=== PATIENT | male | born 1975 | race African-American/Black ===

== ENCOUNTER 2024-01-20 16:04 | Emergency (ER) | payer MEDICARE, MEDICAID, SELFPAY ==
[2024-01-20 16:10] VITALS: BP 124/71; PULSE 85; TEMP 36.8; O2SAT 98; BMI 20.9
--- NOTE | 2024-01-20 16:18 | XR_ITS ---
The [address] [address] Patient Name: PERI ARAGON MRN: [id number] date: 1975 Sex: M Assigned Patient Location: ED.MAIN Current Patient Location: ED.MAIN Accession/Order Number: [id number] Exam Date: 01/20/2024 16:25 Report Date: 01/20/2024 16:57 At the request of: PARI KIM Procedure: XR knee RT 3V EXAM: XR knee RT 3V HISTORY: The patient is a 48-year-old male, right medial knee pain COMPARISON: None. FINDINGS: The right knee is radiographically negative with no evidence of fracture, dislocation, joint space narrowing, osteophytes, or other osseous or articular abnormalities. XR/XR knee RT 3V IMPRESSION: Negative. Electronically authenticated by: ALINA DAN Date: 01/20/2024 16:57
--- NOTE | 2024-01-20 16:20 | ED.LOWEXI1 ---
HPI HPI - Extremity Injury (Lower) General Chief Complaint: Extremity Injury, Lower Stated Complaint: Lower Extremity Pain Time Seen by Provider: 01/20/24 16:12 Source: patient Mode of arrival: walk-in Limitations: no limitations History of Present Illness HPI Narrative: Pt is a 48 yr male, since to the ER with concerns of right knee pain. Patient reports a history of knee pain on and off through the years playing basketball, denies any recent injury states he got up this morning sitting to standing and felt a pop in his right knee. Pain was sharp medial anterior. It typically has tenderness around his kneecaps which has been chronic. He recently moved to the area and only has gabapentin for pain. He reports seeing a local orthopedist for his shoulder. He denies any fevers or chills. Patient full weightbearing on arrival and notes pain occurs in his knee only with certain movements and changing positions. Injury: Right: knee Associated symptoms: Reports snap/pop sensation Related Data Home Medications ?Medication ?Instructions ?Recorded ?Confirmed gabapentin 300 mg capsule 300 mg PO TID 01/20/24 01/20/24 Previous Rx's ?Medication ?Instructions ?Recorded ibuprofen 600 mg tablet 600 mg PO TID PRN pain #30 tabs 01/20/24 Allergies Allergy/AdvReac Type Severity Reaction Status Date / Time acetaminophen AdvReac Mild Nausea Verified 01/20/24 16:10 methylprednisolone AdvReac Mild Vomiting Verified 01/20/24 16:10 Opioid HPI Opioid Management Most Recent Pain and Opioid Data: No Data to Display Review of Systems ROS Constitutional Denies: fever or chills Eyes Denies: change in vision Ears, nose, mouth, and throat Denies: throat pain, neck pain or throat swelling Cardiovascular Denies: chest pain Respiratory Denies: shortness of breath Gastrointestinal Denies: abdominal pain Neurological Denies: headache Psychiatric Denies: anxiety PFSH PFSH Social History Little interest or pleasure in doing things: not at all Feeling down, depressed, or hopeless: not at all Exam Narrative Exam Narrative: Vital signs reviewed and nurse's notes. The patient is not hypoxic. General: Alert, no acute distress, patient resting comfortably Skin: warm, intact, no pallor noted Head: Normocephalic, atraumatic Eye: Normal conjunctiva, no exudates Respiratory: No acute distress, lungs CTA Musculoskeletal: No evidence of deformity to the right knee. + Mable medial, neg Lateral. There is no effusion or swelling. There is no ecchymosis. remote scare anterior medial over patella. No erythema or warmth noted. DP and PT pulses are intact 2+. Normal sensation, normal capillary refill less than 2 seconds. There is no cyanosis or mottling noted. The patient has tenderness to peripatellar soft tissues with patella manipulation and anterior medial joint line of the right knee. The patient has no laxity with varus or valgus stressing. The patient has negative anterior drawer and Rojas testing. No pain with stressing MCL or LCL. The patient was able to flex and extend without pain. occasional sharp stab sensation medial. Patient was able to extend leg off the cart without difficulty. No tenderness noted to the 5th MT, midfoot, ankle or proximal fibular area. There is no pain with calcaneal squeeze, achilles tendon is intact and no defect is palpated. The patient has no pelvic instability. The patient has no shortening or rotation noted to the bilateral lower extremities. Neurological: alert and orient x4, normal sensory and motor observed. Psychiatric: Cooperative Constitutional Vital Signs, click to edit/add: Last Vital Signs Temp 98.2 F 01/20/24 16:10 Pulse 85 01/20/24 16:10 Resp 18 01/20/24 16:10 BP 124/71 01/20/24 16:10 Pulse Ox 98 01/20/24 16:10 O2 Del Method Room Air 01/20/24 16:10 Course Vital Signs Vital signs: Vital Signs Temperature 98.2 F 01/20/24 16:10 Pulse Rate 85 01/20/24 16:10 Respiratory Rate 01/20/24 16:10 Blood Pressure 124/71 01/20/24 16:10 Pulse Oximetry 98 01/20/24 16:10 Oxygen Delivery Method Room Air 01/20/24 16:10 Temperature 98.2 F 01/20/24 16:10 Pulse Rate 85 01/20/24 16:10 Respiratory Rate 18 01/20/24 16:10 Blood Pressure 124/71 01/20/24 16:10 Pulse Oximetry 98 01/20/24 16:10 Oxygen Delivery Method Room Air 01/20/24 16:10 MDM - Extremity Injury (Lower) MDM Narrative Medical decision making narrative: Discussed acute on chronic pain. Symptoms today sharp medial with going from sitting to standing and prior history with sports and recurrent pain with certain positions concerning for possible medial meniscus tear and malacia patella. Patient recommended to use ice, compression, avoid deep squatting rotation. No signs or symptoms of infection. Recommend follow-up to orthopedics for reevaluation after trial of anti-inflammatories. Patient requested IM Toradol over or Motrin here, he appears in no distress. Patient reports being established patient of Dr. Boston for follow-up.. X-ray discussed. pt reports doing physical therapy in the past without relief. The patient is to followup with primary care physician/ orthopedics in next 2-3 days or to return to the emergency department should any of the signs or symptoms worsen or new symptoms develop. Patient had questions answered. The patient agrees with the following Diagnosis and Treatment plan and the patient will be discharged home. recommend food with motrin use. Imaging Data right knee 3 view WB: Attestation: I personally reviewed and interpreted this imaging study as follows: My impression: No acute fracture, joint space preservation. No mass, suspect bony infarcts in the tibia xray results discussed with pt at bedside. Discharge Plan Discharge Chief Complaint: Extremity Injury, Lower Clinical Impression: Acute pain of right knee, Chondromalacia of patella, right Patient Disposition: Home, Self-Care Condition: Good Mode of Transportation: Private Vehicle Prescriptions / Home Meds: New ibuprofen 600 mg tablet 600 mg PO TID PRN (Reason: pain) Qty: 30 0RF No Action gabapentin 300 mg capsule 300 mg PO TID Print Language: Kosovan Instructions: Patellofemoral Pain Syndrome (ED), Patellofemoral Pain Syndrome Exercises (ED) Additional Instructions: Call ortho on sunday for follow up Referrals: Physician,Non-Staff, [Primary Care Provider] - 1 week Felipe Boston MD [Physician] - As soon as possible
[2024-01-20] MEDS: KETOROLAC TROMETHAMINE 60 MG/2 ML VIAL IM (16:31)
== END 2024-01-20 16:36 | disposition home or self-care (01) ==
LOC: ER 16:40
PROVIDERS: Emergency Provider Emergency Medicine
DX: M94.20 Chondromalacia, unspecified site (principal); M25.561 Pain in right knee
CPT/HCPCS: 73562; 96372; 99284; J1885

== ENCOUNTER 2024-01-24 12:32 | Emergency (ER) | payer MEDICARE, MEDICAID, SELFPAY ==
[2024-01-24 12:36] VITALS: BP 118/76; PULSE 84; TEMP 36.9; O2SAT 100; BMI 20.9
--- NOTE | 2024-01-24 13:06 | ED_ITS ---
HPI HPI - General Adult General Chief complaint: Extremity Injury, Lower Stated complaint: LOWER RIGHT EXTREMITY PAIN Time Seen by Provider: 01/24/24 12:58 Source: patient Mode of arrival: walk-in Limitations: no limitations History of Present Illness HPI narrative: 48-year-old male presents to the emergency department because of right knee pain. He states that he tweaked it several days ago and was here a few days ago. He had a negative x-ray at that time. He has not had follow-up. No new injury and the pain does not seem to radiate. He does not want to use crutches. Related Data Home Medications ?Medication ?Instructions ?Recorded ?Confirmed gabapentin 300 mg capsule 300 mg PO TID 01/20/24 01/20/24 Previous Rx's ?Medication ?Instructions ?Recorded ibuprofen 600 mg tablet 600 mg PO TID PRN pain #30 tabs 01/20/24 etodolac 400 mg tablet 400 mg PO Q8H PRN pain #20 tabs 01/24/24 Allergies Allergy/AdvReac Type Severity Reaction Status Date / Time Latex, Natural Rubber Allergy Severe Rash Verified 01/24/24 12:36 acetaminophen AdvReac Mild Nausea Verified 01/24/24 12:36 methylprednisolone AdvReac Mild Vomiting Verified 01/24/24 12:36 Opioid HPI Opioid Management Most Recent Opioid Data: Last Pain Scale 6 01/20/24 16:31 Last MAR Pain Assessment 01/20/24 16:31 Review of Systems ROS Narrative A ten point review of systems is negative except as noted above. PFSH PFSH Social History Little interest or pleasure in doing things: not at all Feeling down, depressed, or hopeless: not at all Exam Narrative Exam Narrative: Nurses note and vital signs reviewed and patient is not hypoxic. General: The patient appears well and in no apparent distress. Patient is resting comfortably on cart. Skin: Warm, dry, no pallor noted. There is no rash noted. Head: Normocephalic, atraumatic Eye: Normal conjunctiva, no drainage Ears, Nose, Mouth, and Throat: oral mucosa is moist. Nares patent. Cardiovascular: Regular Rate and Rhythm Respiratory: Patient is in no distress, no accessory muscle use, lungs are clear to auscultation, no wheezing, rales or rhonchi Back: non-tender GI: Soft and nontender Musculoskeletal: The right knee appears slightly swollen compared to the contralateral. It is not warm to touch or erythematous and has good range of motion Neurological: A&O, normal speech Psychiatric: Cooperative Constitutional Vital Signs, click to edit/add: Last Vital Signs Temp 98.4 F 01/24/24 12:36 Pulse 84 01/24/24 12:36 Resp 20 01/24/24 12:36 BP 118/76 01/24/24 12:36 Pulse Ox 100 01/24/24 12:36 O2 Del Method Room Air 01/24/24 12:36 Course Vital Signs Vital signs: Vital Signs Temperature 98.4 F 01/24/24 12:36 Pulse Rate 84 01/24/24 12:36 Respiratory Rate 01/24/24 12:36 Blood Pressure 118/76 01/24/24 12:36 Pulse Oximetry 100 01/24/24 12:36 Oxygen Delivery Method Room Air 01/24/24 12:36 Temperature 98.4 F 01/24/24 12:36 Pulse Rate 84 01/24/24 12:36 Respiratory Rate 01/24/24 12:36 Blood Pressure 118/76 01/24/24 12:36 Pulse Oximetry 100 01/24/24 12:36 Oxygen Delivery Method Room Air 01/24/24 12:36 Medical Decision Making MDM Narrative Medical decision making narrative: X-ray from the other day was read as negative. He was offered crutches again but does not want them. He is prescribed etodolac and orthopedic appointment is made for the patient to see Dr. Boston on January 27 at 12:30 PM. Treatment diagnosis and follow-up were discussed with the patient. Differential Diagnosis Differential Diagnosis: Knee sprain, knee strain Discharge Plan Discharge Chief Complaint: Extremity Injury, Lower Clinical Impression: Acute pain of right knee Patient Disposition: Home, Self-Care Time of Disposition Decision: 13:04 Condition: Good Mode of Transportation: Private Vehicle Prescriptions / Home Meds: New etodolac 400 mg tablet 400 mg PO Q8H PRN (Reason: pain) Qty: 20 0RF No Action gabapentin 300 mg capsule 300 mg PO TID ibuprofen 600 mg tablet 600 mg PO TID PRN (Reason: pain) Qty: 30 0RF Print Language: [place] Islander Instructions: Knee Pain (ED) Additional Instructions: Do not take ibuprofen with the etodolac Referrals: Physician,Non-Staff, [Primary Care Provider] - 1 week Felipe Boston MD [Physician] - 01/28/24 12:30 pm
== END 2024-01-24 13:15 | disposition home or self-care (01) ==
PROVIDERS: Emergency Provider Emergency Medicine
DX: M25.561 Pain in right knee (principal)
CPT/HCPCS: 99283

== ENCOUNTER 2024-02-07 10:27 | Outpatient (OUT) | payer MEDICARE, MEDICAID, SELFPAY ==
--- NOTE | 2024-02-07 | XR_ITS ---
The [address] [address] Patient Name: PERI ARAGON MRN: [id number] date: 1975 Sex: M Assigned Patient Location: MRI Current Patient Location: MRI Accession/Order Number: [id number] Exam Date: 02/07/2024 13:22 Report Date: 02/07/2024 14:02 At the request of: DILLON BARNETT Procedure: XR skull <4V EXAMINATION: XR skull <4V HISTORY: Pre MRI looking for Foreign body COMPARISON: No relevant comparison available. FINDINGS: ORBITS: Negative for a metallic foreign body. OTHER: Negative. XR/XR skull <4V IMPRESSION: 1. No metallic foreign body within the orbits or visible within the brain. Electronically authenticated by: ADARSH MULLINS Date: 02/07/2024 14:02
--- NOTE | 2024-02-07 | XR_ITS ---
The [address] [address] Patient Name: PERI ARAGON MRN: [id number] date: 1975 Sex: M Assigned Patient Location: MRI Current Patient Location: MRI Accession/Order Number: [id number] Exam Date: 02/07/2024 13:35 Report Date: 02/07/2024 14:04 At the request of: DILLON BARNETT Procedure: XR chest 1V EXAMINATION: XR abdomen 1V, XR chest 1V HISTORY: Pre MRI looking for Foreign body COMPARISON: No relevant comparison available. FINDINGS: LUNGS: No infiltrate, pneumothorax, or pleural effusion. MEDIASTINUM: No abnormal widening. BOWEL GAS PATTERN: Non-obstructed. FREE AIR: None. CALCIFICATIONS: None suspicious. BONES: No fracture or visible bone lesion. OTHER: Negative. XR/XR chest 1V IMPRESSION: 1. No metallic foreign body within the chest, abdomen, or pelvis. 2. No acute or suspicious findings. Electronically authenticated by: ADARSH MULLINS Date: 02/07/2024 14:04
--- NOTE | 2024-02-07 | XR_ITS ---
The [address] [address] Patient Name: PERI ARAGON MRN: [id number] date: 1975 Sex: M Assigned Patient Location: MRI Current Patient Location: MRI Accession/Order Number: [id number] Exam Date: 02/07/2024 13:22 Report Date: 02/07/2024 14:04 At the request of: DILLON BARNETT Procedure: XR abdomen 1V EXAMINATION: XR abdomen 1V, XR chest 1V HISTORY: Pre MRI looking for Foreign body COMPARISON: No relevant comparison available. FINDINGS: LUNGS: No infiltrate, pneumothorax, or pleural effusion. MEDIASTINUM: No abnormal widening. BOWEL GAS PATTERN: Non-obstructed. FREE AIR: None. CALCIFICATIONS: None suspicious. BONES: No fracture or visible bone lesion. OTHER: Negative. XR/XR abdomen 1V IMPRESSION: 1. No metallic foreign body within the chest, abdomen, or pelvis. 2. No acute or suspicious findings. Electronically authenticated by: ADARSH MULLINS Date: 02/07/2024 14:04
--- NOTE | 2024-02-07 | MR_ITS ---
The [address] [address] Patient Name: PERI ARAGON MRN: [id number] date: 1975 Sex: M Assigned Patient Location: MRI Current Patient Location: Accession/Order Number: [id number] Exam Date: 02/07/2024 13:51 Report Date: 02/08/2024 12:47 At the request of: DILLON BARNETT Procedure: MR knee RT wo con EXAMINATION: MR knee RT wo con HISTORY: Acute right knee pain COMPARISON: No relevant comparison available. TECHNIQUE: A complete multi-planar MRI was performed. FINDINGS: MEDIAL COMPARTMENT MEDIAL MENISCUS: No visible tear or significant degeneration. CARTILAGE: No visible defect. BONES: No marrow pathology, fracture, or significant arthropathy. MCL AND MEDIAL CAPSULE: Normal medial collateral ligament and medial capsule. LATERAL COMPARTMENT LATERAL MENISCUS: No visible tear or significant degeneration. CARTILAGE: No visible defect. BONES: No marrow pathology, fracture, or significant arthropathy. LCL/POSTEROLAT COMPLEX: Normal lateral collateral ligament, fascicles, lateral capsule and ligaments. ANTERIOR COMPARTMENT PATELLA: No marrow pathology, fracture, or significant arthropathy. CARTILAGE: No visible defect. TENDONS: Normal. EFFUSION: None. No synovitis or loose bodies. ACL: Normal appearing ligament. PCL: Normal appearing ligament. MENISCOFEMORAL: Normal meniscofemoral ligaments. OTHER: Increased T2 signal suggestive of edema within soft tissues anterior to the patella. MR/MR knee RT wo con IMPRESSION: 1. Suspect mild edema, possibly bruising, of subcutaneous soft tissue anterior to patella. No evidence of bursitis. 2. Otherwise unremarkable right knee. Electronically authenticated by: ADARSH MULLINS Date: 02/08/2024 12:47
--- OUTSIDE RECORDS SUMMARY | 2024-02-07 10:46 | XMS_ITS | CCD ---
Author Organization [facility] Care Team Providers Care Lead Systems Engineer Name Role Phone Unavailable Primary Care Provider Unavailjoseline Corrigan MD, Divehi Unavailable [facility] Primary Care Provider [phone] [facility] Gretta Hilario Emergency Provider DO Cliff Chapman Emergency Provider [facility] Primary Care Provider DO Jeevan Freire Attending Provider DO Anurag Butler Other Provider MD Sammi Contreras Attending Provider Meenu QUINTEROS, Divehi Unavailable [facility] Primary Care Provider MD Joana Luevano Jr Emergency Provider BETTY Ku Emergency Provider [facility] Primary Care Provider MD Joana Luevano Jr Emergency Provider BETTY Ku Emergency Provider DO Jeevan Freire Attending Provider DO Brayan Rolle Referring Provider CJ MANUEL Primary Care Physician [phone] CJ MANUEL Referring Unavailable CJ MANUEL Primary Care Unavailable Thanh Arizmendi Attending Unavailable Thanh Arizmenid Admitting Unavailable Danis Amin MD Unavailable [facility] Primary Care Provider MD Joana Luevano Jr Emergency Provider [facility] ([place], [place]) Care Unavaila ble Noam Kuothy Admitting Unavailable Bang Ku Attending Unavailable Joana Luevano Jr Admitting Unavailable Joana Luevano Jr Attending Unavailable [facility] ([place], [place] Care Unavaila ble [facility] [place] Care Unavaila ble Brayan Rolle Referring Unavailable Jeevan Freire Admitting Unavailable Jeevan Freire Attending Unavailable [facility] [place] Care Unavaila Joana Patel Jr Admitting Unavailable Joana Luevano Jr Attending Unavailable [facility] [place] Care Unavaila ble Noam Kuothy Admitting Unavailable Bang Ku Attending Unavailable [facility] [place] Care Unavaila ble Joana Luevano Jr Admitting Unavailable Joana Luevano Jr Attending Unavailable Allergies Allergy Classification Reported Allergen(s) Allergy Type Date of Onset Reaction(s) Facility (17 sources) Latex; Translations: [Latex] Drug Allergy 03-05-20 20 Rash, Unknown (qualifier value) [facility] (15 sources) methylPREDNISolone Drug Allergy 05-03-20 19 Other: See Comments [facility] Work Phone: (8 sources) predniSONE; Translations: [prednisone] Drug Allergy 01-04-20 21 Other: See Comments, Vomiting (disorder) [facility] Work Phone: (2 sources) Metoclopramide; Translations: [metoclopramide] Drug Allergy Vomiting (disorder) [facility] (1 source) Latex Drug allergy (disorder) 01-13-20 24 [facility] (1 source) methylPREDNISolone Drug Allergy 01-13-20 [facility] Medications Current Medications Medication Drug Class(es) Dates Sig (Normalized) Sig (Original) acetaminophen 32 mg/ml oral solution (6 sources) Start: 07-15-2021 acetaminophen (TYLENOL) 650 mg/20.3 mL soln Take 31.23 mL by mouth every 6 hours. Do not exceed 5 doses in 24 hours. 0 07/15/2021 Active Comment on above: Take 31.23 mL by ritesh th every 6 hours. Do not exceed 5 doses in 24 hours. acetaminophen 325 mg / oxyCODONE hydrochloride 5 mg oral tablet (1 source) Opioid Agonist Start: 01-13-2024 take 1 tablet by mouth every six hours Oxycodone-Acetamino phen (Percocet) 5-325 mg tablet Active 1 - 2 TAB PO Every 6 hours 15 January 13, 2024 Start: 01-13-2024 take 1 tablet by ritesh th every six hours Oxycodone-Acetaminophen (Percocet) 5-325 mg tablet Active 1 - 2 TAB PO Every 6 hours 15 January 13, 2024 azelastine hydrochloride 0.206 mg/actuat metered dose nasal spray (10 sources) Histamine-1 Receptor Antagonist Start: 05-17-2023 azelastine nasal 0.15% spray Refill(s) 0, 1-2 sprays each nostril BID Start Date: 05/17/23 Status: Ordered Start: 12-25-2020 End: 02-24-2023 Azelastine Discontinued INTR ANASAL December 25, 2020 12:00am February 24, 2023 9:10am dicyclomine hydrochloride 2 mg/ml oral solution (6 sources) Anticholinergic Start: 02-09-2021 take 10 mg by mouth once daily dicyclomine (BENTYL) 10 mg/5 mL oral liquid Take 10 mg by mouth once daily. 0 02/09/2021 Active Comment on above: Take 10 mg by mouth once daily. fluticasone (10 sources) Corticosteroid Start: 05-17-2023 take 50 ug by inhalation once daily fluticasone 50 mcg, Inhalation, Daily, Refills(s) 0 Start Date: 05/17/23 Status: Ordered Start: 12-25-2020 End: 02-24-2023 Fluticasone Propionate Disco ntinued INTRANASAL December 25, 2020 12:00am February 24, 2023 9:10am gabapentin 300 mg oral capsule (11 sources) Anti-epileptic Agent Start: 05-17-2023 End: 10-12-2023 take 1 capsule by mouth three times daily Neurontin 300 mg Cap 300 mg = 1 cap(s), Oral, TID, X 30 day(s), # 90 cap(s), Refills(s) 3, Pharmacy: [facility]/pharmacy #[id number], 175, cm, 06/14/23 12:41:00 EST, Height/Length Dosing, 81.4, kg, 06/14/23 12:41:00 EST, Weight Dosing Start Date: 06/14/23 Stop Date: 10/12/23 Status: Ordered Start: 05-03-2019 End: 02-24-2023 take 300 mg by mouth three times daily Gabapentin Discontinued 300 MG PO Three times daily May 03, 2019 1:00am February 24, 2023 9:10am ibuprofen 600 mg oral tablet (1 source) Nonsteroidal Anti-inflammatory Drug Start: 01-13-2024 take 600 mg by mouth every eight hours Ibuprofen Active 600 MG PO Q8H January 13, 2024 12:00am lidocaine 0.04 mg/mg medicated patch (6 sources) Antiarrhythmic, Amide Local Anesthetic Start: 07-15-2021 apply 1 dose transdermal route once daily lidocaine (SALONPAS) 4 % patch Apply 1 Patch as directed once daily. 0 07/15/2021 Active Comment on above: Apply 1 Patch as directed once daily. montelukast 10 mg oral tablet (10 sources) Leukotriene Receptor Antagonist Start: 05-17-2023 take 1 tablet by mouth once daily montelukast 10 mg Tab 10 mg = 1 tab(s), Oral, Daily, Refills(s) 0 Start Date: 05/17/23 Status: Ordered Start: 05-03-2019 End: 02-24-2023 take 1 tablet by mouth once daily in the evening Montelukast (Singulair) 10 mg Tablet Discontinued 10 MG PO Every evening May 03, 2019 1:00am February 24, 2023 9:10am Neoga (No Known Home Meds) (3 sources) Start: 03-20-2023 Neoga (No Kn own Home Meds) Active March 20, 2023 12:00am Start: 02-24-2023 Neoga (No own Home Meds) Active February 24, 2023 12:00am omeprazole 40 mg oral tablet (10 sources) Proton Pump Inhibitor Start: 05-17-2023 take 40 mg by mouth once daily omeprazole 40 mg, Oral, Daily, Refills(s) 0 Start Date: 05/17/23 Status: Ordered Start: 12-25-2020 End: 02-24-2023 Omeprazole Discontinued MG A ugust 2020 12:00am February 24, 2023 9:10am ondansetron 4 mg oral tablet (1 source) Serotonin-3 Receptor Antagonist Start: 05-17-2023 take 1 tablet by mouth once daily as needed for nausea ondansetron See Instructions, PRN as needed for nausea/vomiting, 4 mg Oral Daily allow tablet to dissolve on tongue, Refills(s) 0 Start Date: 05/17/23 Status: Ordered pantoprazole 40 mg delayed release oral tablet (12 sources) Proton Pump Inhibitor Start: 07-15-2021 End: 09-13-2021 take 1 tablet by mouth twice daily pantoprazole DR (PROTONIX) 40 mg tablet Take 1 tablet by mouth twice daily. 60 tablet 1 07/15/2021 Active Comment on above: Take 1 tablet by ritesh th twice daily. Take 1 tablet by ritesh th twice daily before meals at 6 am and 4 pm. perflutren lipid microspheres 1.3 mL in NaCl (PF) 0.9% 10 mL injection (DEFINITY) (2 sources) Start: 06-07-2021 End: 09-06-2022 perflutren lipid microspheres 1.3 mL in NaCl (PF) 0.9% 10 mL injection (DEFINITY) polyethylene glycol 3350 94999 mg powder for oral solution (6 sources) Osmotic Laxative Start: 07-15-2021 polyethylene glycol 3350 (MIRALAX, GLYCOLAX) 17 gram packet Take 1 Packet by mouth once daily. Dissolve dose in 4 - 8 ounces of liquid and take as directed. 0 07/15/2021 Active Comment on above: Take 1 Packet by ritesh once daily. Dissolve dose in 4 - 8 ounces of liquid and take as directed. propranolol hydrochloride 20 mg oral tablet (1 source) beta-Adrenergic Beau Start: 05-17-2023 take 1 tablet by mouth twice daily propranolol 20 mg Tab 20 mg = 1 tab(s), Oral, BID, Refills(s) 0 Start Date: 05/17/23 Status: Ordered 125 ml sodium chloride 9 mg/ml prefilled syringe (2 sources) Start: 06-07-2021 End: 09-06-2022 sodium chloride 0.9 % (flush) 10 mL (BD POSIFLUSH) tiZANidine 4 mg oral capsule (6 sources) Central alpha-2 Adrenergic Agonist take 1 capsule by mouth every eight hours as needed tiZANidine HCl 4 mg capsule Take 4 mg by mouth three times daily as needed. 0 Active Comment on above: Take 4 mg by mouth t hree times daily as needed. Ventolin HFA 90 mcg/inh Aerosol-Adpt (1 source) Start: 05-17-2023 take 1 puff(s) by inhalation every four hours Ventolin HFA 90 mcg/inh Aerosol-Adpt 1 puff(s), Inhalation, q4hr Shortness of breath or wheezing, Refill(s) 0 Start Date: 05/17/23 Status: Ordered Completed/Discontinued Medications Medication Drug Class(es) Dates Sig (Normalized) Sig (Original) amoxicillin 500 mg oral tablet (18 sources) Penicillin-class Antibacterial Start: 04-16-2022 End: 02-24-2023 take 500 mg by mouth twice daily Amoxicillin Discontinued 500 MG PO Twice daily 02 03April 16, 2022 1:00am February 24, 2023 9:09am Start: 05-03-2019 End: 03-05-2020 take 500 mg by mouth three times daily Amoxicillin Discontinued 500 MG PO Three times daily 30 May 03, 2019 1:00am March 05, 2020 12:36pm benzonatate 100 mg oral capsule (9 sources) Non-narcotic Antitussive Start: 05-03-2019 End: 03-05-2020 take 1 capsule by mouth three times daily Benzonatate (Tessalon Perles) 100 mg capsule Discontinued 100 MG PO Three times daily May 03, 2019 1:00am March 05, 2020 12:36pm busPIRone hydrochloride 10 mg oral tablet (9 sources) Start: 05-03-2019 End: 12-25-2020 take 10 mg by mouth once daily Buspirone Discontinued 10 MG PO Daily May 03, 2019 1:00am December 25, 2020 4:11pm DULoxetine 30 mg delayed release oral capsule (1 source) Serotonin and Norepinephrine Reuptake Inhibitor Start: 06-14-2023 End: 09-12-2023 take 2 tablets by mouth once daily at mealtime duloxetine 30 mg oral delayed release capsule 60 mg = 2 cap(s), Oral, Daily, take 1 tablet in am with food for 1 week and then take 2 tablets in am with food thereafter, X 30 day(s), # 60 cap(s), Refills(s) 2, Pharmacy: [facility]/pharmacy #[id number], 175, cm, 06/14/23 12:41:00 EST, Height/Length Dosing, 81.4, kg, 06/14/23 12:41:00 EST, Weight Dosing Start Date: 06/14/23 Stop Date: 09/12/23 Status: Ordered meloxicam 15 mg oral tablet (9 sources) Nonsteroidal Anti-inflammatory Drug Start: 05-03-2019 End: 02-24-2023 take 15 mg by mouth once daily Meloxicam Discontinued 15 MG PO Daily May 03, 2019 1:00am February 24, 2023 9:10am Problems Active Problems Problem Classification Problem Date Documented Date Episodic/Chronic Abdominal pain (16 sources) Abdominal pain; Translations: [Unspecified abdominal pain] Onset: 02-21-2023 10-20-2021 Episodic Disorders of teeth and jaw (9 sources) Dental caries; Translations: [Dental caries, unspecified] 05-03-2019 Episodic Esophageal disorders (6 sources) Gastroesophageal reflux disease without esophagitis; Translations: [Gastro-esophageal reflux disease without esophagitis] 07-15-2021 Chronic Fluid and electrolyte disorders (9 sources) Hypokalemia; Translations: [Hypokalemia] 02-26-2020 Episodic Open wounds of extremities (9 sources) Laceration of finger; Translations: [Laceration without foreign body of unspecified finger without damage to nail, initial encounter] 08-09-2020 Episodic Other eye disorders (7 sources) Disorder of cornea; Translations: [Other specified disorders of cornea, left eye] 12-25-2020 Episodic Other eye disorders (2 sources) Disorder of cornea of left eye; Translations: [Other specified disorders of cornea, left eye] 12-25-2020 Episodic Other injuries and conditions due to external causes (9 sources) Foreign body in ear; Translations: [Foreign body in ear, unspecified ear, initial encounter] 04-16-2022 Episodic Other injuries and conditions due to external causes (4 sources) Cold exposure; Translations: [Effect of reduced temperature, unspecified, initial encounter] 02-24-2023 Episodic Other upper respiratory infections (12 sources) Upper respiratory infection; Translations: [Acute upper respiratory infection, unspecified] 05-03-2019 Episodic Otitis media and related conditions (18 sources) Acute right otitis media; Translations: [Otitis media, unspecified, right ear] 05-03-2019 Episodic Sprains and strains (1 source) Strain of tendon of medial thigh muscle; Translations: [Strain of adductor muscle, fascia and tendon of unspecified thigh, initial encounter] 01-13-2024 Episodic Substance-related disorders (7 sources) Nicotine dependence; Translations: [Nicotine dependence, unspecified, uncomplicated] Onset: 07-14-2021 07-15-2021 Chronic Comment on above: Added secondary to d ocumentation in Social History. Thyroid disorders (1 source) Nontoxic single thyroid nodule; Translations: [Nontoxic single thyroid nodule] Onset: 04-27-2023 Chronic Unclassified (1 source) Laceration without foreign body of right middle finger without damage to nail, initial encounter; Translations: [Laceration without foreign body of right middle finger without damage to nail, initial encounter] Onset: 04-02-2023 Unclassified (1 source) Cough, unspecified; Translations: [Cough, unspecified] Onset: 03-20-2023 Unclassified (1 source) Effect of reduced temperature, unspecified, initial encounter; Translations: [Effect of reduced temperature, unspecified, initial encounter] Onset: 02-24-2023 Past or Other Problems Problem Classification Problem Date Documented Date Episodic/Chronic Administrative/social admission (6 sources) Discharge status; Translations: [Encounter for administrative examinations, unspecified] Onset: 07-14-2021 07-15-2021 Episodic Esophageal disorders (8 sources) Achalasia of esophagus; Translations: [Achalasia of cardia] Onset: 07-13-2021 Episodic Other circulatory disease (1 source) Other specified symptoms and signs involving the circulatory and respiratory systems; Translations: [Other specified symptoms and signs involving the circulatory and respiratory systems] Onset: 03-20-2023 Episodic Other nervous system disorders (6 sources) Postoperative pain ; Translations: [Other acute postprocedural pain] Onset: 07-14-2021 07-15-2021 Episodic Results Test Name Value Interpretation Reference Range Facility [facility] PERI YOU ([id number]) 1975 M Date Time Provider Department 09/24/23 MARIANA ARIZMENDI GAPRA3 During your visit today, we recorded the following information about you: Mariana Arizmendi RN 09/24/2023 4:26 PM Signed Attempted to reach the patient at the contact number that they provided [phone] (home) . 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 Failure to have a responsible adult accompany the patient to their procedure appointment prevents the use of sedation or anesthesia for their procedure; and can result in cancellation of the procedure NPO instructions were reviewed. Clear liquids the day before the procedure, stop all liquids 4 hours before the procedure Instructions to contact their primary care provider regarding their medications and which medications to stop in preparation for their procedure Instructions to completely read and follow the written instructions that they recieved regarding their procedure. Number to call with questions or concerns [phone] Number to call to cancel their procedure [phone] Mariana Arizmendi RN Allergies As of Date: 09/24/2023 Noted Allergy Reaction LATEX 03/05/2020 2 - Rash METHYLPREDNISOLONE 05/03/2019 14 - Other: See Comments Comments: Emesis and blacking out PREDNISONE 01/03/2021 14 - Other: See Comments Comments: Emesis and blacking out Date Reviewed: 07/15/2021 Reviewed by: Raquel Brandon, BETH - Fully Assessed Prescriptions as of 09/24/2023 - lidocaine (SALONPAS) 4 % patch Apply 1 Patch as directed once daily. - pantoprazole DR (PROTONIX) 40 mg tablet Take 1 tablet by mouth twice daily. - acetaminophen (TYLENOL) 650 mg/20.3 mL soln Take 31.23 mL by mouth every 6 hours. Do not exceed 5 doses in 24 hours. - pantoprazole DR (PROTONIX) 40 mg tablet Take 1 tablet by mouth twice daily before meals at 6 am and 4 pm. - polyethylene glycol 3350 (MIRALAX, GLYCOLAX) 17 gram packet Take 1 Packet by mouth once daily. Dissolve dose in 4 - 8 ounces of liquid and take as directed. - dicyclomine (BENTYL) 10 mg/5 mL oral liquid Take 10 mg by mouth once daily. - tiZANidine HCl 4 mg capsule Take 4 mg by mouth three times daily as needed. Problem List As Of Date 09/24/2023 Noted Resolved Achalasia [K22.0] 07/13/2021 Nicotine use disorder, F17.2 [F17.200] 07/14/2021 Gastroesophageal reflux disease without esophag* Postoperative pain [G89.18] 07/14/2021 Discharge planning issues [Z75.8] 07/14/2021 Encounter Status:Closed by MARIANA ARIZMENDI on 09/24/23 [facility] [place] 09-06-2023 CNPN Telephone (THORMN) PERI YOU ([id number]) 1975 M Date Time Provider Department 09/06/23 KIRSTIE SHETTY During your visit today, we recorded the following information about you: Itzel Garces 09/06/2023 1:10 PM Signed Received outside notes from the office of Danis Amin MD. Scanned documents in [employer]. Itzel Cheung [employer] Allergies As of Date: 09/06/2023 Noted Allergy Reaction LATEX 03/05/2020 2 - Rash METHYLPREDNISOLONE 05/03/2019 14 - Other: See Comments Comments: Emesis and blacking out PREDNISONE 01/03/2021 14 - Other: See Comments Comments: Emesis and blacking out Date Reviewed: 07/15/2021 Reviewed by: Raquel Brandon, BETH - Fully Assessed Reason for Visit: Received Outside Medical Records [[id number]] Prescriptions as of 09/06/2023 - lidocaine (SALONPAS) 4 % patch Apply 1 Patch as directed once daily. - pantoprazole DR (PROTONIX) 40 mg tablet Take 1 tablet by mouth twice daily. - acetaminophen (TYLENOL) 650 mg/20.3 mL soln Take 31.23 mL by mouth every 6 hours. Do not exceed 5 doses in 24 hours. - pantoprazole DR (PROTONIX) 40 mg tablet Take 1 tablet by mouth twice daily before meals at 6 am and 4 pm. - polyethylene glycol 3350 (MIRALAX, GLYCOLAX) 17 gram packet Take 1 Packet by mouth once daily. Dissolve dose in 4 - 8 ounces of liquid and take as directed. - dicyclomine (BENTYL) 10 mg/5 mL oral liquid Take 10 mg by mouth once daily. - tiZANidine HCl 4 mg capsule Take 4 mg by mouth three times daily as needed. Problem List As Of Date 09/06/2023 Noted Resolved Achalasia [K22.0] 07/13/2021 Nicotine use disorder, F17.2 [F17.200] 07/14/2021 Gastroesophageal reflux disease without esophag* Postoperative pain [G89.18] 07/14/2021 Discharge planning issues [Z75.8] 07/14/2021 Encounter Status:Closed by SYMONE GORE on 09/06/23 [facility] 07-25-2023 CNPN Telephone (ADEN) PEIR YOU ([id number]) 1975 M Date Time Provider Department 07/25/23 KIRSTIE SHETTY During your visit today, we recorded the following information about you: Symone Gore RN 07/25/2023 2:02 PM Signed PRINCIPAL DX: Achalasia SURGICAL DX: 07/13/2021 Status Post Robot assisted Heller myotomy with Filiberto fundoplication Last clinic note on 08/08/[address] Shetty A: Ptr s/p robotic heller/Filiberto. Doing well. No complaints. Tolerating a soft diet. CC: dysphagia and requesting pain medication refills Dysphagia, (0, absent; 1, occasional; 2, daily; and 3, with each meal) - 3 Regurgitation (0, absent; 1, occasional; 2, daily; and 3, with each meal) - 3 Chest pain retrosternal (0, absent; 1, occasional; 2, daily; and 3, with each meal) - 3 Weight loss (0, no weight loss; 1, <5 kg; 2, 5-10 kg; and 3, >10 kg) - 1 TOTAL ECKARDT SCORE (sum of above four, maximum score, 12) - 10 Recommendations Demo and insurance updated in system Need records from [facility] xrays done MayJun 2023 Instructed to call the physician that has been prescribing his oxy and other medications since we have not seen him in 2 years. ( states he needs referral for pain management) Plan for TBE , follow up with [facility] [employer]ARD [facility]ER EGD by gastro swallowing center. [employer]ER follow up after testing completed Symone Gore RN, BSN, [facility] Thoracic Nurse Practice Mgr Symone Gore RN 09/06/2023 4:00 PM Signed outside EGD /pathology , PFTs and GI note rec'd and scanned in documents Symone Gore RN 09/06/2023 4:00 PM Signed Allergies As of Date: 07/25/2023 Noted Allergy Reaction LATEX 03/05/2020 2 - Rash METHYLPREDNISOLONE 05/03/2019 14 - Other: See Comments Comments: Emesis and blacking out PREDNISONE 01/03/2021 14 - Other: See Comments Comments: Emesis and blacking out Date Reviewed: 07/15/2021 Reviewed by: Raquel Brandon RN - Fully Assessed Reason for Visit: returned call [Other] Primary Visit Diagnosis:Achalasia and cardiospasm [K22.0] Order(s):XR ESOPHAGRAM [2490391] Order #: [id number] FUTURE EGD DIAGNOSTIC [GI9] Order #: [id number] FUTURE Prescriptions as of 09/06/2023 - lidocaine (SALONPAS) 4 % patch Apply 1 Patch as directed once daily. - pantoprazole DR (PROTONIX) 40 mg tablet Take 1 tablet by mouth twice daily. - acetaminophen (TYLENOL) 650 mg/20.3 mL soln Take 31.23 mL by mouth every 6 hours. Do not exceed 5 doses in 24 hours. - pantoprazole DR (PROTONIX) 40 mg tablet Take 1 tablet by mouth twice daily before meals at 6 am and 4 pm. - polyethylene glycol 3350 (MIRALAX, GLYCOLAX) 17 gram packet Take 1 Packet by mouth once daily. Dissolve dose in 4 - 8 ounces of liquid and take as directed. - dicyclomine (BENTYL) 10 mg/5 mL oral liquid Take 10 mg by mouth once daily. - tiZANidine HCl 4 mg capsule Take 4 mg by mouth three times daily as needed. Problem List As Of Date 07/25/2023 Noted Resolved Achalasia [K22.0] 07/13/2021 Nicotine use disorder, F17.2 [F17.200] 07/14/2021 Gastroesophageal reflux disease without esophag* Postoperative pain [G89.18] 07/14/2021 Discharge planning issues [Z75.8] 07/14/2021 Encounter Status:Closed by SYMONE GORE on 07/27/23 [facility] Consent for Treatmenton Consent for Treatment [id number] [facility] Consultation Noteon 06-14-19 Consultation Note Patient is presentin g with complaints of diffuse musculoskeletal pain as well as gastrointestinal pain as he has had an extensive history of gastrointestinal issues as well as dysphagia odynophagia achalasia and has had Heller myotomy and other workup in the past. He rates his pain as a 7-8 out of 10. He has tried many things for his multiple areas of pain and has diffuse musculoskeletal pain as well. He is very interested in receiving opioid medication and we discussed his OARRS history with him and that he has not received this medication in several months. He was very intent on receiving a new prescription of opioid medication and wanted to discuss where he could start as far as dosing and was very well versed in various opioid medications available and continue to inquire about these medications specifically. When discussing out of medications such as gabapentin noise he was, he was reasonable to try this,, he says this has been somewhat helpful for him as well. He states that he has tried a significant number of medications in the past and opioids with the only thing that had been effective for him. We discussed that due to the nature of his pain as well as concerns for affecting his gastrointestinal transit I would be concerned about this medication as well as his specific request of this medication. We discussed that there are other interventions available but he is not interested in injections or interventional based procedures for his pain. He is very interested in medication therapy. KELLY Score: 74% PHQ-2: 3 Patient denies any symptoms of progressively worsening upper/lower extremity weakness, progressively worsening gait abnormality, new onset bowel/bladder incontinence/ urinary retention, or saddle anesthesia. No new or worsening symptoms of fever, chills, night sweats. 14 Point Review of systems negative unless otherwise noted. General: No acute distress. Patient appears well-nourished. HEENT: Head is normocephalic and external ears are normal in appearance. Cardiovascular: No signs of poor perfusion and no peripheral edema Pulmonary: Nonlabored breathing, symmetric chest movement. GI: Abdomen nondistended Integumentary: No lesions Musculoskeletal: Multiple tender spots throughout body. Neurologic: Alert, oriented x3. 5/5 strength grossly in the bilateral upper extremities. 5/5 strength grossly in the bilateral lower extremities. Special Testing: Negative Harsha sign bilaterally. History, physical examination, and personal review of pertinent imaging results indicate a diagnosis of: -Myofascial pain -Dysphagia Plan: -We do lengthy discussion about the appropriateness of opioids we discussed that this would not be the best place to start with his medications and discussed that since he has been off this medication based on his prescription history he should be well out of window of any concerns for withdrawal at this time and he may even benefit from staying away from opioid therapy as there is a risk of opioid-induced hyperalgesia when taking this medication -Will continue him on gabapentin 300 mg 3 times daily -We prescribed duloxetine we will start at 30 mg for 1 week and increase to 60 mg thereafter -Will follow-up in 6 months or sooner if any issues arise Patient was counseled on the above diagnosis and treatment, all questions were answered and patient agrees to adhere to the plan above. Risk and benefits of appropriate procedures and medications were reviewed as well with patient, who voiced understanding and agreeance. Patient was counseled on appropriate use of opioids if prescribed or renewed today and naloxone was offered to patient if opioids were prescribed or maintained at this visit. Patient was counseled on smoking cessation and/or continuing to abstain from nicotine/tobacco products as appropriate based on history; as smoking/nicotine can contribute to increased pain overall and decreased wound healing. Patient counseled on maintaining a healthy BMI as part of the total treatment of their pain and to reduce stress/strain on joints. Patient invited to return or call with any questions or concerns that arise. [facility] Comment on above: Result Comment: Elec tronically Signed By: Faizan MCNALLY, Thanh Juárezbr\Date and Time Signed: 06/14/23 13:11 EST HIPAA Forms Officeon 024 HIPAA Forms Office [id number]#[address] [facility] Legal Correspondence Officeo n 06-14-2023 Legal Correspondence Office [id number]#[address] [facility] Legal Correspondence Office [id number]#[address] [facility] Office/Clinic Note-Physician on 06-14-2023 Office/Clinic Note-Physician [id number]#[address] [facility] Patient Correspondenceon Patient Correspondence [id number]#[address] [facility] Patient Correspondence [id number]#[address] [facility] Patient Correspondence [id number]#[address] [facility] Patient Correspondence [id number]#[address] [facility] Patient Correspondence [id number]#[address] [facility] Patient History Officeon Patient History Office [id number]#1 .00TIFF Normal [facility] Patient History Office [id number]#1 .00TIFF Normal [facility] Radiology Outside Office Motor Runner yon 06-14-2023 Radiology Outside Office Copy [id number]#1 .00TIFF Normal [facility] Outside Records Officeon Outside Records Office [id number]#1. 00TIFF Normal [facility] Referrals Officeon 3 Referrals Office [id number]#1. 00TIFF Normal [facility] Thyroid Stim Hormone w/Rflxo n 04-27-2023 Thyroid Stim Hormone w/Rflx 0.50 u[iU]/mL Normal 0.45-5.33 [facility] Comment on above: Order Comment: Reaso n for Exam Thyroid nodule Result Comment: PERF ORMED BY: [place] [address] PATHOLOGIST TEAM LEADER SURGERY EMRE FIELD M.D. Performed By: #### T SH3 wRFLX #### [address] Thyrotropin [Units/volume] i n Serum or PlasmaOrdered By: Brayan Rolle on 04-27-2023 TSH Qn 0.50 m[IU]/L 0.45-5.33 [facility] US thyroidon 04-27-2023 US thyroid [facility] [place] [place] [address] Ultrasound Report Signed Patient: Peri You MR#: [id number] 443 : 1975 Acct:[id number] Age/Sex: 47 / M ADM Date: 04/27/23 Loc: Room: Type: [facility] Attending Dr: Jeevan Freire DO Ordering Provider: Brayan Rolle DO, RES Date of Service: 04/27/23 US/US thyroid: Thyroid nodule Copies to: Brayan Rolle DO, RES Jeevan Freire DO Thyroid Ultrasound HISTORY: Nontoxic single thyroid nodule COMPARISON: None The RIGHT lobe measures 5.3 x 2.8 x 1.9cm. LEFT lobe measures 5.5 x 3.1 x 1.9 cm. Isthmus has an AP dimension of 0.4cm. Right superior solid and cystic nodule measures 1.0 x 0.7 x 0.8 cm.. No microcalcifications identified. Symmetric blood flow of the thyroid gland identified. US/US thyroid IMPRESSION: 1 cm solid and cystic right thyroid nodule. Impression dictated by: Godwin Jackson M.D.04/27/2023 5:18 PM Dictation Location: [place] [address] Tech: Elsa Echols Transcribed By: HALEY 04/27/231717 Dictated By: Godwin Jackson DO 04/27/231705 Signed By: 04/27/231717 Normal [facility] COVID CepheidOrdered By: Myles Luevano on 03-20-2023 SARS-CoV-2 (COVID-19) Ab IA Ql Negative Negative [facility] Comment on above: This is a duplicate Cepheid Xpert Xpress CoV-2/Flu/RSV Plus RNA by RT-PCR result to be used for statistical tracking purpose only. SARS-CoV-2 (COVID-19) RNA MILADYS+probe Ql (Unsp spec) [facility] COVID-19 / Flu A/B / RSV PCR on 03-20-2023 SARS-CoV-2 (COVID-19) RNA MILADYS+probe Ql (Unsp spec) COVID-19 Cepheid Result Negative for SARS-CoV-2 RNA by RT-PCR Flu A Cepheid Result Negative for Flu A RNA by RT-PCR Flu B Cepheid Result Negative for Flu B RNA by RT-PCR RSV Cepheid Result Negative for RSV RNA by RT-PCR COVID19 Blank Space Reference: Negative COVID19 Blank Space Cepheid Disclaimer The Cepheid Xpert Xpress CoV-2/Flu/RSV Plus has Cepheid Disclaimer not been FDA cleared or approved; this test has Cepheid Disclaimer been authorized by FDA under an EUA for use by Cepheid Disclaimer authorized laboratories; this test has been Cepheid Disclaimer authorized only for the simultaneous qualitative Cepheid Disclaimer detection and differentiation of nucleic acids from Cepheid Disclaimer SARS-CoV-2, influenza A, influenza B, and Cepheid Disclaimer respiratory syncytial virus (RSV), and not for any Cepheid Disclaimer other viruses or pathogens; and this test is only Cepheid Disclaimer authorized for the duration of the declaration that Cepheid Disclaimer circumstances exist justifying the authorization of Cepheid Disclaimer emergency use of in vitro diagnostic tests for Cepheid Disclaimer detection and/or diagnosis of COVID-19 under Cepheid Disclaimer Section 564(b)(1) of the Act, 21 U.S.C. 360bbb- Cepheid Disclaimer 3(b)(1), unless the authorization is terminated or Cepheid Disclaimer revoked sooner. PERFORMED BY: [place] [address] PATHOLOGIST TEAM LEADER SURGERY EMRE FIELD M.D. Normal [facility] Comment on above: Performed By: #### C OVID19 FLU RSV, CEPHEID NEG #### [place] [id number] [facility] Cepheid COVID PCR Negativeon 03-20-2023 SARS-CoV-2 (COVID-19) RNA MILADYS+probe Ql (Unsp spec) Negative Normal Negative [facility] Comment on above: Result Comment: This is a duplicate Cepheid Xpert Xpress CoV-2/Flu/RSV Plus RNA by RT-PCR result to be used for statistical tracking purpose only. PERFORMED BY: [place] [address] PATHOLOGIST TEAM LEADER SURGERY EMRE FIELD M.D. Performed By: #### C OVID19 FLU RSV, CEPHEID NEG #### [facility] [address] XR chest 2V*on 03-20-2023 XR chest 2V* [facility] [address] [place] [address] [place] [id number] XRay Report Signed Patient: Peri You MR#: [id number] 443 : 1975 Acct:[id number] Age/Sex: 47 / M ADM Date: 03/20/23 Loc: ER Room: Type: [facility] ER Attending Dr: Copies to: Joana Luevano Jr, MD Ordering Provider: Joana Luevano Jr, MD Date of Service: 03/20/23 XR/XR chest 2V*: cough 2 weeks, congestion Plain film chest 2 view HISTORY: Chest pain and shortness of breath COMPARISON: 09/16/2020 FINDINGS: SUPPORT DEVICES: None POSTSURGICAL CHANGES: None HEART: Within normal limits PULMONARY OZIEL: Within normal limits MEDIASTINUM: Unremarkable LUNGS AND PLEURA: No acute lung process, pleural effusion or pneumothorax identified. BONY STRUCTURES: Intact ADDITIONAL FINDINGS None XR/XR chest 2V* IMPRESSION: No acute process. Impression dictated by: Godwin Jackson M.D.03/20/2023 8:14 AM Dictation Location: [place] [address] Transcribed By: [facility] 03/20/23813 Dictated By: Godwin Jackson DO 03/20/23813 Signed By: 03/20/23813 Normal [facility] Capillary blood glucose magdaleno urement by glucometer (mass/volume)Ordered By: Bang Ku on 02-24-2023 Glucose [Mass/Vol] 96 mg/dL Normal [facility] Comment on above: Random Glucose Refer ence Range is dependent on time and content of last meal. Glucose of more than 200 mg/dL in a nonstressed, ambulatory subject supports the diagnosis of Diabetes Mellitus. Result Comment: [place] [facility] Glucose Reference Range is dependent on time and content of last meal. Glucose of more than 200 mg/dL in a nonstressed, ambulatory subject supports the diagnosis of Diabetes Mellitus. PERFORMED BY: [place] [address] PATHOLOGIST TEAM LEADER SURGERY EMRE FIELD M.D. Performed By: #### G DON #### Point of Care testing , Alanine aminotransferase [En zymatic activity/volume] in Serum or PlasmaOrdered By: Joana Luevano on 02-21-2023 ALT [Catalytic activity/Vol] 10 U/L Normal 7-52 [facility] Comment on above: Performed By: #### H S TROP, CMP, LIPASE, CBC ####[place] [address] [address] Albumin [Mass/volume] in Ser um or Plasma by Bromocresol green (BCG) dye binding methoOrdered By: Joana Luevano on 02-21-2023 Albumin BCG dye [Mass/Vol] 4.3 g/dL 3.5-5.7 [facility] Alkaline phosphatase [Enzyma tic activity/volume] in Serum or PlasmaOrdered By: Joana Luevano on 02-21-2023 ALP [Catalytic activity/Vol] 62 U/L Normal 34-104 [facility] Comment on above: Performed By: #### H S TROP, CMP, LIPASE, CBC ####[place] [address] [address] Aspartate aminotransferase [ Enzymatic activity/volume] in Serum or PlasmaOrdered By: Joana Luevano on 02-21-2023 AST [Catalytic activity/Vol] 18 U/L Normal 13-39 [facility] Comment on above: Performed By: #### H S TROP, CMP, LIPASE, CBC ####[place] [address] [address] Automated basophil %Ordered By: Joana Luevano on 02-21-2023 Basophils/100 WBC (Bld) 0.9 % Normal . [facility] Comment on above: Performed By: #### H S TROP, CMP, LIPASE, CBC #### [address] Automated basophil countOrde red By: Joana Luevano on 02-21-2023 Basophils (Bld) [#/Vol] 0.1 10*3/uL Normal 0.0-0.2 [facility] Comment on above: Result Comment: PERF ORMED BY: [place] [address] PATHOLOGIST TEAM LEADER SURGERY EMRE FIELD M.D. Performed By: #### H S TROP, CMP, LIPASE, CBC #### [address] Automated blood monocyte cou ntOrdered By: Joana Luevano on 02-21-2023 Monocytes (Bld) [#/Vol] 0.5 10*3/uL Normal 0.0-0.8 [facility] Comment on above: Performed By: #### H S TROP, CMP, LIPASE, CBC #### [address] Automated eosinophil %Ordere d By: Joana Luevano on 02-21-2023 Eosinophils/100 WBC (Bld) 0.8 % Normal . [facility] Comment on above: Performed By: #### H S TROP, CMP, LIPASE, CBC #### [address] Automated eosinophil countOr dered By: Joana Luevano on 02-21-2023 Eosinophils (Bld) [#/Vol] 0.1 10*3/uL Normal 0.0-0.45 [facility] Comment on above: Performed By: #### H S TROP, CMP, LIPASE, CBC #### [address] Automated monocyte %Ordered By: Joana Luevano on 02-21-2023 Monocytes/100 WBC (Bld) 5.7 % Normal . [facility] Comment on above: Performed By: #### H S TROP, CMP, LIPASE, CBC #### [address] Automated neutrophil %Ordere d By: Joana Luevano on 02-21-2023 Neutrophils/100 WBC (Bld) 71.1 % Normal . [facility] Comment on above: Performed By: #### H S TROP, CMP, LIPASE, CBC #### [address] Automated urine color determ inationOrdered By: Joana Luevano on 02-21-2023 Color (U) Yellow Normal Yellow [facility] Comment on above: Order Comment: Name Collection Type:: Clean-Voided Midstream Performed By: #### U A #### [facility] [address] [place] [id number] [facility] Bilirubin Test strip Ql (U)O rdered By: Joana Luevano on 02-21-2023 Bilirubin Ql (U) Negative Negative [facility] Bilirubin.total [Mass/volume ] in Serum or PlasmaOrdered By: Joana Luevano on 02-21-2023 Bilirubin [Mass/Vol] 0.3 mg/dL Normal 0.3-1.0 [facility] Comment on above: Performed By: #### H S TROP, CMP, LIPASE, CBC ####[facility] Mrh[address] abdomen pelvis w conon CT abdomen pelvis w con [facility] [address] [place] [address] [place] [address] CT Scan Report Signed Patient: Peri You MR#: [id number] 443 : 1975 Acct:[id number] Age/Sex: 47 / M ADM Date: 02/21/23 Loc: ER Room: Type: [facility] ER Attending Dr: Copies to: Joana Luevano Jr, MD Ordering Provider: Joana Luevano Jr, MD Date of Service: 02/21/23 CT/CT abdomen pelvis w con: diffuse abdominal pain, vomiting CT ABDOMEN AND PELVIS WITH INTRAVENOUS CONTRAST: CLINICAL HISTORY: Diffuse abdominal pain the lower abdomen. Nausea and vomiting. COMPARISON: CT abdomen and pelvis 10/20/2021 TECHNIQUE: Spiral images were obtained through the abdomen and pelvis following the administration of intravenous contrast. This CT exam was performed using one or more following dose reduction techniques: Automated exposure control, adjustment of the mA and/or kV according to patient size, or use of iterative reconstruction technique. FINDINGS: Lung Bases: [Bibasilar atelectasis.] Organs:The dome of the liver is excluded from today's study. Liver gallbladder portal vein spleen pancreas adrenal glands kidneys and aorta all appear unremarkable.[ GI: Stomach is grossly unremarkable. Small bowel appears nondilated. No acute colonic abnormality.[ Pelvis:[Urinary bladder is grossly unremarkable. Prostatomegaly.] Peritoneum/Retroperito neum:No free air, free fluid or lymphadenopathy.[ Abd wall/Bones:Abdominal wall demonstrates no acute findings.[Osseous structures demonstrate degenerative change. CT/CT abdomen pelvis w con IMPRESSION: No acute findings. Prostatomegaly. Impression dictated by: Chris Gregorio Jr., D.OAmbrosio02/21/2023 10:06 AM Dictation Location: [place] [address] Transcribed By: [facility] 02/21/23 1006 Dictated By: Chris Gregorio Jr DO 02/21/23 1002 Signed By: 02/21/23 1006 Normal [facility] Calcium [Mass/volume] in Ser um or PlasmaOrdered By: Joana Luevano on 02-21-2023 Calcium [Mass/Vol] 9.3 mg/dL Normal 8.6-10.3 [facility] Comment on above: Performed By: #### H S TROP, CMP, LIPASE, CBC ####[place] [address] [address] Carbon dioxide, total [Moles /volume] in Serum or PlasmaOrdered By: Joana Luevano on 02-21-2023 CO2 [Moles/Vol] 26.9 mmol/L Normal 21.0-31.0 [facility] Comment on above: Performed By: #### H S TROP, CMP, LIPASE, CBC ####[place] [address] [place] [id number] [facility] Chloride [Moles/volume] in S federico or PlasmaOrdered By: Joana Luevano on 02-21-2023 Chloride [Moles/Vol] 104 mmol/L Normal 98-107 [facility] Comment on above: Performed By: #### H S TROP, CMP, LIPASE, CBC ####[facility] [id number] [place] [id number] [facility] Complete Blood Count Auto Di ffon 02-21-2023 Mean Corpuscular HGB Conc 33.9 g/dL Normal 32.5-35.6 [facility] Comment on above: Performed By: #### H S TROP, CMP, LIPASE, CBC #### [address] Monocytes/100 WBC (Bld) 16.15 % Normal 0.00-20.00 [facility] Comment on above: Performed By: #### H S TROP, CMP, LIPASE, CBC #### [address] NRBC% 0.2 /100{WBC} Normal 0-0.5 [facility] Comment on above: Performed By: #### H S TROP, CMP, LIPASE, CBC #### [address] Comprehensive Metabolic Pane brent 02-21-2023 Albumin [Mass/Vol] 4.3 g/dL Normal 3.5-5.7 [facility] Comment on above: Performed By: #### H S TROP, CMP, LIPASE, CBC ####[address] Creatinine Clr Calc Pharmacy 115.79 Normal [facility] Comment on above: Performed By: #### H S TROP, CMP, LIPASE, CBC ####[address] GFR/1.73 sq M.predicted MDRD (S/P/Bld) [Vol rate/Area] mL/min/{1.73_m2} Normal [facility] Comment on above: Performed By: #### H S TROP, CMP, LIPASE, CBC ####[address] Creatinine [Mass/volume] in Serum or PlasmaOrdered By: Joana Luevano on 02-21-2023 Creatinine [Mass/Vol] 0.84 mg/dL Normal 0.70-1.30 [facility] Comment on above: Performed By: #### H S TROP, CMP, LIPASE, CBC ####[address] ECG 12 lead ECGon 02-21-2023 ECG 12 lead ECG [facility] [address] [place] [address] [place] [address] Electrocardiograph Report Signed Patient: Peri You MR#: [id number] 443 : 1975 Acct:[id number] Age/Sex: 47 / M ADM Date: 02/21/23 Loc: ER Room: Type: [facility] ER Attending Dr: Ordering Provider: Joana Luevano Jr, MD Date of Service: 02/21/2304/05/136 ECG/ECG 12 lead ECG: Abdominal Pain Copies to: Test Reason : Blood Pressure : / mmHG Vent. Rate : 072 BPM Atrial Rate : 072 BPM P-R Int : 166 ms QRS Dur : 086 ms QT Int : 372 ms P-R-T Axes : 035 075 058 degrees QTc Int : 407 ms Normal sinus rhythm Normal ECG No previous ECGs available Confirmed by JOANA LUEVANO MD ([id number]) on 02/21/2023 4:48:22 AM Referred By: Electronically Signed By:JOANA LUEVANO MD Transcribed By: [facility] Signed By Joana Luevano Jr, MD 0448 Normal [facility] Erythrocyte distribution wid th [Ratio] by Automated countOrdered By: Joana Luevano on 02-21-2023 Erythrocyte distribution width (RBC) [Ratio] 15.3 % High 12.0-14.8 [facility] Comment on above: Performed By: #### H S TROP, CMP, LIPASE, CBC #### [facility] [address] Erythrocytes [#/volume] in B lood by Automated countOrdered By: Joana Luevano on 02-21-2023 RBC (Bld) [#/Vol] 4.68 10*6/uL Normal 3.90-5.60 [facility] Comment on above: Performed By: #### H S TROP, CMP, LIPASE, CBC #### [facility] [address] [place] [id number] [place] Glucose [Mass/volume] in Ser um or PlasmaOrdered By: Joana Luevano on 02-21-2023 Glucose [Mass/Vol] 95 mg/dL Normal 70-100 [facility] Comment on above: ADA recommended refe rence rangeRandom Glucose Reference Range is dependent on time and content of last meal. Glucose of more than 200 mg/dL in a nonstressed, ambulatory subject supports the diagnosis of Diabetes Mellitus. Result Comment: [facility] Glucose Reference Range is dependent on time and content of last meal. Glucose of more than 200 mg/dL in a nonstressed, ambulatory subject supports the diagnosis of Diabetes Mellitus. ADA recommended reference range Performed By: #### H S TROP, CMP, LIPASE, CBC ####[facility] [id number] [address] Hematocrit [Volume Fraction] of Blood by Automated countOrdered By: Joana Luevano on 02-21-2023 Hematocrit (Bld) [Volume fraction] 39.1 % Normal 38.8-50.0 [facility] Comment on above: Performed By: #### H S TROP, CMP, LIPASE, CBC #### [facility] [address] Hemoglobin [Mass/volume] in BloodOrdered By: Joana Luevano on 02-21-2023 Hemoglobin (Bld) [Mass/Vol] 13.2 g/dL Normal 13.0-17.0 [facility] Comment on above: Performed By: #### H S TROP, CMP, LIPASE, CBC #### [facility] [address] Ketones Auto test strip (U) [Mass/Vol]Ordered By: Joana Luevano on 02-21-2023 Ketones (U) [Mass/Vol] Negative Negative [facility] Leukocytes [#/volume] correc manolo for nucleated erythrocytes in Blood by Automated counOrdered By: Joana Luevano on 02-21-2023 WBC corrected for nucl RBC Auto (Bld) [#/Vol] 9.3 10*3/uL 4.1-10.5 [facility] Leukocytes [#/volume] in Blo od by Automated countOrdered By: Joana Luevano on 02-21-2023 WBC (Bld) [#/Vol] 9.3 10*3/uL Normal 4.1-10.5 [facility] Comment on above: Performed By: #### H S TROP, CMP, LIPASE, CBC #### [facility] [address] [place] [address] [place] Lipase [Enzymatic activity/v olume] in Serum or PlasmaOrdered By: Joana Luevano on 02-21-2023 Lipase [Catalytic activity/Vol] 59.0 U/L Normal 11.0-82.0 [facility] Comment on above: Result Comment: PERF ORMED BY: [place] [address] PATHOLOGIST TEAM LEADER SURGERY EMRE FIELD M.D. Performed By: #### H S TROP, CMP, LIPASE, CBC ####[facility] [id number] [place] [address] [place] Lymphocytes [#/volume] in Bl ood by Automated countOrdered By: Joana Luevano on 02-21-2023 Lymphocytes (Bld) [#/Vol] 2.0 10*3/uL Normal 1.00-4.8 [facility] Comment on above: Performed By: #### H S TROP, CMP, LIPASE, CBC #### [facility] [address] [place] [address] [place] Lymphocytes/100 leukocytes i n Blood by Automated countOrdered By: Joana Luevano on 02-21-2023 Lymphocytes/100 WBC (Bld) 21.5 % Normal . [facility] Comment on above: Performed By: #### H S TROP, CMP, LIPASE, CBC #### [facility] [address] [place] [address] MCH [Entitic mass] by Automa manolo countOrdered By: Joana Luevano on 02-21-2023 MCH (RBC) [Entitic mass] 28.3 pg Normal 27.5-35.2 [facility] Comment on above: Performed By: #### H S TROP, CMP, LIPASE, CBC #### [facility] [address] [place] [address] [place] MCHC Auto (RBC) [Mass/Vol]Or dered By: Joana Luevano on 02-21-2023 MCHC (RBC) [Mass/Vol] 33.9 g/dL 32.5-35.6 [facility] MCV [Entitic volume] by Auto mated countOrdered By: Joana Luevano on 02-21-2023 MCV (RBC) [Entitic vol] 83.5 fL Normal 83.5-101 [facility] Comment on above: Performed By: #### H S TROP, CMP, LIPASE, CBC #### [facility] [address] Monocyte distribution width [Entitic volume] in Blood by AutomatedOrdered By: Joana Luevano on 02-21-2023 Monocyte distribution width Auto (Bld) [Entitic vol] 16.15 % 0.00-20.00 [facility] [facility] Neutrophils [#/volume] in Bl ood by Automated countOrdered By: Joana Luevano on 02-21-2023 Neutrophils (Bld) [#/Vol] 6.6 10*3/uL Normal 1.8-7.7 [facility] Comment on above: Performed By: #### H S TROP, CMP, LIPASE, CBC #### [facility] [address] Nitrite Test strip Ql (U)Ord ered By: Joana Luevano on 02-21-2023 Nitrite Ql (U) Negative Negative [facility] No Panel InformationOrdered By: Joana Luevano on 02-21-2023 Estimated GFR (CKD-EPI) > 60.0 mL/Min [facility] Creatinine Clearance (Chem 115.79 [facility] Nucleated erythrocytes [Pres ence] in Blood by Automated countOrdered By: Joana Luevano on 02-21-2023 Nucleated RBC Auto Ql (Bld) 0.2 /100{WBC} 0-0.5 [facility] Platelet mean volume [Entiti c volume] in Blood by Automated countOrdered By: Joana Luevano on 02-21-2023 Platelet mean volume (Bld) [Entitic vol] 7.5 fL Normal 6.6-10.1 [facility] Comment on above: Performed By: #### H S TROP, CMP, LIPASE, CBC #### [facility] [address] [place] [address] [place] Platelets [#/volume] in Bloo d by Automated countOrdered By: Joana Luevano on 02-21-2023 Platelets (Bld) [#/Vol] 228 10*3/uL Normal 150-450 [facility] Comment on above: Performed By: #### H S TROP, CMP, LIPASE, CBC #### [facility] [address] Potassium [Moles/volume] in Serum or PlasmaOrdered By: Joana Luevano on 02-21-2023 Potassium [Moles/Vol] 3.9 mmol/L Normal 3.5-5.1 [facility] Comment on above: Performed By: #### H S TROP, CMP, LIPASE, CBC ####[address] Protein Auto test strip (U) [Mass/Vol]Ordered By: Joana Luevano on 02-21-2023 Protein (U) [Mass/Vol] Negative Negative [facility] Protein [Mass/volume] in Ser um or PlasmaOrdered By: Joana Luevano on 02-21-2023 Protein [Mass/Vol] 7.2 g/dL Normal 6.4-8.9 [facility] Comment on above: Performed By: #### H S TROP, CMP, LIPASE, CBC ####[address] Serum globulin measurement b y calculation (mass/volume)Ordered By: Joana Luevano on 02-21-2023 Globulin (S) [Mass/Vol] 2.9 g/dL Normal [facility] Comment on above: Performed By: #### H S TROP, CMP, LIPASE, CBC ####[address] Serum or plasma albumin/glob ulin mass ratioOrdered By: Joana Luevano on 02-21-2023 Albumin/Globulin [Mass ratio] 1.5 {ratio} Normal [facility] Comment on above: Performed By: #### H S TROP, CMP, LIPASE, CBC ####[address] Serum or plasma anion gap de terminationOrdered By: Joana Luevano on 02-21-2023 Anion gap [Moles/Vol] 10.0 mmol/L Normal 6.0-15.0 [facility] Comment on above: Performed By: #### H S TROP, CMP, LIPASE, CBC ####[address] [place] [address] [place] Sodium [Moles/volume] in Ser um or PlasmaOrdered By: Joana Luevano on 02-21-2023 Sodium [Moles/Vol] 137 mmol/L Normal 136-145 [facility] Comment on above: Performed By: #### H S TROP, CMP, LIPASE, CBC ####[address] Specific gravity Auto test s trip (U) [Rel density]Ordered By: Joana Luevano on 02-21-2023 Specific gravity (U) [Rel density] 1.014 1.001-1.030 [facility] Troponin I High Sensitivityo n 02-21-2023 Troponin I High Sensitivity 3.3 pg/mL Normal 0.0-20.0 [facility] Comment on above: Result Comment: PERF ORMED BY: [facility] [address] [place] [address] PATHOLOGIST TEAM LEADER SURGERY EMRE FIELD M.D. Performed By: #### H S TROP, CMP, LIPASE, CBC ####[address] Troponin I.cardiac [Mass/vol ume] in Serum or Plasma by Detection limit <= 0.01 ng/Ordered By: Joana Luevano on 02-21-2023 Troponin I.cardiac DL <= 0.01 ng/mL [Mass/Vol] 3.3 pg/mL 0.0-20.0 [facility] Urea nitrogen [Mass/volume] in Serum or PlasmaOrdered By: Joana Luevano on 02-21-2023 Urea nitrogen [Mass/Vol] 14 mg/dL Normal 7-25 [facility] Comment on above: Performed By: #### H S TROP, CMP, LIPASE, CBC ####[address] Urinalysison 02-21-2023 Appearance (U) Clear Normal Clear [facility] Comment on above: Order Comment: Name Collection Type:: Clean-Voided Midstream Performed By: #### U A #### [address] Bilirubin,Urine Negative Normal Negative [facility] Comment on above: Order Comment: Name Collection Type:: Clean-Voided Midstream Performed By: #### U A #### [address] Glucose Ql (U) Normal Normal Normal [facility] Comment on above: Order Comment: Name Collection Type:: Clean-Voided Midstream Performed By: #### U A #### [address] Ketones Ql (U) Negative Normal Negative [facility] Comment on above: Order Comment: Name Collection Type:: Clean-Voided Midstream Performed By: #### U A #### [address] Leukocyte esterase Test strip Ql (U) Negative Normal Negative [facility] Comment on above: Order Comment: Name Collection Type:: Clean-Voided Midstream Performed By: #### U A #### [place] [address] [place] Nitrite,Urine Negative Normal Negative [facility] Comment on above: Order Comment: Name Collection Type:: Clean-Voided Midstream Performed By: #### U A #### [address] Occult Blood,Urine Negative Normal Negative [facility] Comment on above: Order Comment: Name Collection Type:: Clean-Voided Midstream Result Comment: PERF ORMED BY: [place] [address] PATHOLOGIST TEAM LEADER SURGERY EMRE FIELD M.D. Performed By: #### U A #### [place] [address] [place] Protein,Urine Negative Normal Negative [facility] Comment on above: Order Comment: Name Collection Type:: Clean-Voided Midstream Performed By: #### U A #### [place] [address] [place] Specificy [place],Urine 1.014 Normal 1.001-1.030 [facility] Comment on above: Order Comment: Name Collection Type:: Clean-Voided Midstream Performed By: #### U A #### [facility] [address] [place] [id number] [place] Urobilinogen,Urine Normal Normal Normal [facility] Comment on above: Order Comment: Name Collection Type:: Clean-Voided Midstream Performed By: #### U A #### [facility] [address] [place] [id number] [place] Urine clarity by refractomet ry automatedOrdered By: Joana Luevano on 02-21-2023 Clarity Refractometry automated (U) Clear Clear [facility] Urine glucose measurement by automated test strip (mass/volume)Ordered By: Joana Luevano on 02-21-2023 Glucose Auto test strip (U) [Mass/Vol] Normal mg/dL Normal [facility] Urine hemoglobin detection b y automated test stripOrdered By: Joana Luevano on 02-21-2023 Hemoglobin Auto test strip Ql (U) Negative Negative [facility] Urine leukocyte esterase det ection by automated test stripOrdered By: Joana Luevano on 02-21-2023 Leukocyte esterase Auto test strip Ql (U) Negative Negative [facility] Urine pH measurement by auto mated test stripOrdered By: Joana Luevano on 02-21-2023 pH (U) 6.5 [pH] Normal 5.0-9.0 [facility] Comment on above: Order Comment: Name Collection Type:: Clean-Voided Midstream Performed By: #### U A #### [facility] [address] [place] [id number] [place] Urobilinogen Auto test strip (U) [Mass/Vol]Ordered By: Joana Luevano on 02-21-2023 Urobilinogen (U) [Mass/Vol] Normal mg/dL Normal [facility] CNPNon 12-07-2022 CNPN Telephone (HVICTR) PERI YOU ([id number]) 1975 M Date Time Provider Department 12/07/22 KIRSTIE SHETTY HVICTR During your visit today, we recorded the following information about you: Asia Kamara RN 12/07/2022 2:25 PM [facility] Center Inbound Phone Encounter DATE of SERVICE: 12/07/2022 TIME of SERVICE: 2:23 PM Status: FYI Service/Provider: Thoracic Surgery Kirstie Shetty M.D. Reason for call: Care Coordination and FYI Contact information: [phone] Resolution: Reinforced education Comments: Pt calling [facility] line. New Physician with [facility] requesting medical information. Pt was unsure on what records they needed. Previous MD retired. Provided FAX # of our Office and appt center # once pt was ready to make follow up. Encouraged to call us back with any further questions/assistance. Asia Kamara RN Date of Resolution: 12/07/2022 Time of Resolution 2:23 PM Allergies As of Date: 12/07/2022 Noted Allergy Reaction LATEX 03/05/2020 2 - Rash METHYLPREDNISOLONE 05/03/2019 14 - Other: See Comments Comments: Emesis and blacking out PREDNISONE 01/03/2021 14 - Other: See Comments Comments: Emesis and blacking out Date Reviewed: 07/15/2021 Reviewed by: Raquel Brandon RN - Fully Assessed Reason for Visit: Assignment Officer - Other [3602] Prescriptions as of 12/07/2022 - lidocaine (SALONPAS) 4 % patch Apply 1 Patch as directed once daily. - pantoprazole DR (PROTONIX) 40 mg tablet Take 1 tablet by mouth twice daily. - acetaminophen (TYLENOL) 650 mg/20.3 mL soln Take 31.23 mL by mouth every 6 hours. Do not exceed 5 doses in 24 hours. - pantoprazole DR (PROTONIX) 40 mg tablet Take 1 tablet by mouth twice daily before meals at 6 am and 4 pm. - polyethylene glycol 3350 (MIRALAX, GLYCOLAX) 17 gram packet Take 1 Packet by mouth once daily. Dissolve dose in 4 - 8 ounces of liquid and take as directed. - dicyclomine (BENTYL) 10 mg/5 mL oral liquid Take 10 mg by mouth once daily. - tiZANidine HCl 4 mg capsule Take 4 mg by mouth three times daily as needed. Problem List As Of Date 12/07/2022 Noted Resolved Achalasia [K22.0] 07/13/2021 Nicotine use disorder, F17.2 [F17.200] 07/14/2021 Gastroesophageal reflux disease without esophag* Postoperative pain [G89.18] 07/14/2021 Discharge planning issues [Z02.9] 07/14/2021 Encounter Status:Closed by ASIA KAMARA on 12/07/22 Normal [facility] Alanine aminotransferase [En zymatic activity/volume] in Serum or PlasmaOrdered By: Anurag Butler on 11-07-2022 ALT [Catalytic activity/Vol] 14 U/L 7-52 [facility] Albumin [Mass/volume] in Ser um or Plasma by Bromocresol green (BCG) dye binding methoOrdered By: Anurag Butler on 11-07-2022 Albumin BCG dye [Mass/Vol] 4.4 g/dL 3.5-5.7 [facility] Alkaline phosphatase [Enzyma tic activity/volume] in Serum or PlasmaOrdered By: Anurag Butler on 11-07-2022 ALP [Catalytic activity/Vol] 70 U/L 34-104 [facility] Aspartate aminotransferase [ Enzymatic activity/volume] in Serum or PlasmaOrdered By: Anurag Butler on 11-07-2022 AST [Catalytic activity/Vol] 19 U/L 13-39 [facility] Basophils Auto (Bld) [#/Vol] Ordered By: Anurag Butler on 11-07-2022 Basophils (Bld) [#/Vol] 0.0 10*3/uL 0.0-0.2 [facility] Basophils/100 WBC Auto (Bld) Ordered By: Anurag Butler on 11-07-2022 Basophils/100 WBC (Bld) 0.4 % . [facility] Bilirubin.total [Mass/volume ] in Serum or PlasmaOrdered By: Anurag Butler on 11-07-2022 Bilirubin [Mass/Vol] 0.4 mg/dL 0.3-1.0 [facility] Calcium [Mass/volume] in Ser um or PlasmaOrdered By: Anurag Butler on 11-07-2022 Calcium [Mass/Vol] 9.2 mg/dL 8.6-10.3 [facility] Carbon dioxide, total [Moles /volume] in Serum or PlasmaOrdered By: Anurag Butler on 11-07-2022 CO2 [Moles/Vol] 26.2 mmol/L 21.0-31.0 [facility] Chloride [Moles/volume] in S federico or PlasmaOrdered By: Anurag Butler on 11-07-2022 Chloride [Moles/Vol] 105 mmol/L 98-107 [facility] Cholesterol [Mass/volume] in Serum or PlasmaOrdered By: Anurag Butler on 11-07-2022 Cholesterol [Mass/Vol] 136 mg/dL 140-200 [facility] Comment on above: Chol less than 200 m g/dl low riskChol 201-239 mg/dl borderline riskChol 240 mg/dl and greater high risk Cholesterol in LDL Calc [Mas s/Vol]Ordered By: Anurag Butler on 11-07-2022 Cholesterol in LDL [Mass/Vol] 72 mg/dL 0-100 [facility] Comment on above: LDL ATP III CLASSIFI CATIONLDL less than 100 mg/dL OptimalLDL 100-129 mg/dL Near or above optimalLDL 130-159 mg/dL Borderline highLDL 160-189 mg/dL HighLDL greater than 189 mg/dL Very high Cholesterol in VLDL Calc [Ma ss/Vol]Ordered By: Anurag Butler on 11-07-2022 Cholesterol in VLDL [Mass/Vol] 17 mg/dL [facility] Creatinine [Mass/volume] in Serum or PlasmaOrdered By: Anurag Butler on 11-07-2022 Creatinine [Mass/Vol] 0.96 mg/dL 0.70-1.30 [facility] Eosinophils Auto (Bld) [#/Vo l]Ordered By: Anurag Butler on 11-07-2022 Eosinophils (Bld) [#/Vol] 0.0 10*3/uL 0.0-0.45 [facility] Eosinophils/100 WBC Auto (Bl d)Ordered By: Anurag Butler on 11-07-2022 Eosinophils/100 WBC (Bld) 0.6 % . [facility] Erythrocyte distribution wid th Auto (RBC) [Ratio]Ordered By: Anurag Butler on 11-07-2022 Erythrocyte distribution width (RBC) [Ratio] 14.9 % 12.0-14.8 [facility] Folate [Mass/volume] in Seru m or PlasmaOrdered By: Anurag Butler on 11-07-2022 Folate [Mass/Vol] 12.1 ng/mL >5.9 [facility] Comment on above: Folate reference ran ge: >5.9 ng/mlThe WHO technical consultation on folate and vitamin [id number] has determined that folate concentrations lessthan 4 ng/ml are considered deficient. Globulin Calc (S) [Mass/Vol] Ordered By: Anurag Butler on 11-07-2022 Globulin (S) [Mass/Vol] 2.6 g/dL [facility] Glucose [Mass/volume] in Ser um or PlasmaOrdered By: Anurag Butler on 11-07-2022 Glucose [Mass/Vol] 69 mg/dL 70-100 [facility] Comment on above: ADA recommended refe rence rangeRandom Glucose Reference Range is dependent on time and content of last meal. Glucose of more than 200 mg/dL in a nonstressed, ambulatory subject supports the diagnosis of Diabetes Mellitus. Hematocrit Auto (Bld) [Volum e fraction]Ordered By: Anurag Butler on 11-07-2022 Hematocrit (Bld) [Volume fraction] 38.5 % 38.8-50.0 [facility] Hemoglobin [Mass/volume] in BloodOrdered By: Anurag Butler on 11-07-2022 Hemoglobin (Bld) [Mass/Vol] 12.9 g/dL 13.0-17.0 [facility] Leukocytes [#/volume] correc manolo for nucleated erythrocytes in Blood by Automated counOrdered By: Anurag Butler on 11-07-2022 WBC corrected for nucl RBC Auto (Bld) [#/Vol] 7.2 10*3/uL 4.1-10.5 [facility] Lymphocytes Auto (Bld) [#/Vo l]Ordered By: Anurag Butler on 11-07-2022 Lymphocytes (Bld) [#/Vol] 2.0 10*3/uL 1.00-4.8 [facility] Lymphocytes/100 WBC Auto (Bl d)Ordered By: Anurag Butler on 11-07-2022 Lymphocytes/100 WBC (Bld) 27.7 % . [facility] MCH Auto (RBC) [Entitic mass ]Ordered By: Anurag Butler on 11-07-2022 MCH (RBC) [Entitic mass] 28.1 pg 27.5-35.2 [facility] MCHC Auto (RBC) [Mass/Vol]Or dered By: Anurag Butler on 11-07-2022 MCHC (RBC) [Mass/Vol] 33.5 g/dL 32.5-35.6 [facility] MCV Auto (RBC) [Entitic vol] Ordered By: Anurga Butler on 11-07-2022 MCV (RBC) [Entitic vol] 83.8 fL 83.5-101 [facility] Monocytes Auto (Bld) [#/Vol] Ordered By: Anurag Butler on 11-07-2022 Monocytes (Bld) [#/Vol] 0.4 10*3/uL 0.0-0.8 [facility] Monocytes/100 WBC Auto (Bld) Ordered By: Anurag Butler on 11-07-2022 Monocytes/100 WBC (Bld) 5.5 % . [facility] Neutrophils Auto (Bld) [#/Vo l]Ordered By: Anurag Butler on 11-07-2022 Neutrophils (Bld) [#/Vol] 4.7 10*3/uL 1.8-7.7 [facility] Neutrophils/100 WBC Auto (Bl d)Ordered By: Anurag Butler on 11-07-2022 Neutrophils/100 WBC (Bld) 65.8 % . [facility] No Panel InformationOrdered By: Anurag Butler on 11-07-2022 Estimated GFR (CKD-EPI) > 60.0 mL/Min [facility] Creatinine Clearance (Chem N/A [facility] Nucleated erythrocytes [Pres ence] in Blood by Automated countOrdered By: Anurag Butler on 11-07-2022 Nucleated RBC Auto Ql (Bld) 0.0 /100{WBC} 0-0.5 [facility] Platelet mean volume Auto (B ld) [Entitic vol]Ordered By: Anurag Butler on 11-07-2022 Platelet mean volume (Bld) [Entitic vol] 7.2 fL 6.6-10.1 [facility] Platelets Auto (Bld) [#/Vol] Ordered By: Anurag Butler on 11-07-2022 Platelets (Bld) [#/Vol] 238 10*3/uL 150-450 [facility] Potassium [Moles/volume] in Serum or PlasmaOrdered By: Anurag Butler on 11-07-2022 Potassium [Moles/Vol] 4.2 mmol/L 3.5-5.1 [facility] Protein [Mass/volume] in Ser um or PlasmaOrdered By: Anurag Butler on 11-07-2022 Protein [Mass/Vol] 7.0 g/dL 6.4-8.9 [facility] RBC Auto (Bld) [#/Vol]Ordere d By: Anurag Butler on 11-07-2022 RBC (Bld) [#/Vol] 4.60 10*6/uL 3.90-5.60 [facility] Serum or plasma albumin/glob ulin mass ratioOrdered By: Anurag Butler on 11-07-2022 Albumin/Globulin [Mass ratio] 1.7 {ratio} [facility] Serum or plasma anion gap de terminationOrdered By: Anurag Butler on 11-07-2022 Anion gap [Moles/Vol] 12.0 mmol/L 6.0-15.0 [facility] Serum or plasma high density lipoprotein (HDL) cholesterol measurementOrdered By: Anurag Butler on 11-07-2022 Cholesterol in HDL [Mass/Vol] 47 mg/dL 23- [facility] Comment on above: HDL CHOL ATP-III CLA SSIFICATION Cardiovascular RiskHDL > or equal to 60 mg/dL LOWHDL < 40 mg/dL HIGH Serum or plasma total choles terol/high density lipoprotein (HDL) cholesterol mass ratOrdered By: Anurag Butler on 11-07-2022 Cholesterol.total/Choles terol in HDL [Mass ratio] 2.9 {ratio} <5.0 [facility] Sodium [Moles/volume] in Ser um or PlasmaOrdered By: Anurag Butler on 11-07-2022 Sodium [Moles/Vol] 139 mmol/L 136-145 [facility] Thyrotropin [Units/volume] i n Serum or PlasmaOrdered By: Anurag Butler on 11-07-2022 TSH Qn 0.49 m[IU]/L 0.45-5.33 [facility] Triglyceride [Mass/volume] i n Serum or PlasmaOrdered By: Anurag Butler on 11-07-2022 Triglyceride [Mass/Vol] 86 mg/dL 0-149 [facility] Comment on above: TRIG ATP III CLASSIF ICATIONTRIG less than 150 mg/dL NormalTRIG 150-199 mg/dL Borderline highTRIG 200-500 mg/dL High TRIG greater than 500 mg/dL Very highStandard traceable to the Center for Disease Conrtrol and Prevention (CDC) test method. Urea nitrogen [Mass/volume] in Serum or PlasmaOrdered By: Anurag Butler on 11-07-2022 Urea nitrogen [Mass/Vol] 9 mg/dL 7-25 [facility] Vitamin B12 ser/plasOrdered By: Anurag Butler on 11-07-2022 Cobalamin (Vitamin B12) [Mass/Vol] 1245 pg/mL 180-914 [facility] Vitamin D+Metabolites [Mass/ volume] in Serum or PlasmaOrdered By: Anurag Butler on 11-07-2022 Vitamin D+Metabolites [Mass/Vol] 39.2 ng/mL 30-100 [facility] Comment on above: VITAMIN D STATUS 25( [place])VITAMIN D RANGE (ng/mL) Deficient <20 Insufficient 20 to <30Sufficient 30 to 100Reference: Esther GARCIAS,Nga PORTER, Bora EGAN, et al. Evaluation,treatment, and prevention of vitamin D deficiency; an Endocrine Society clinical practice guideline. JCEM. 2010; 96(7):1911-30. WBC Auto (Bld) [#/Vol]Ordere d By: Faithbhakti Butler on 11-07-2022 WBC (Bld) [#/Vol] 7.2 10*3/uL 4.1-10.5 [facility] Vital Signs Date Time Vital Sign Value Performing Clinician Parul eason 01-13-2024 03:42-0400 Body height 180.34 cm [employer] Work Phone: [facility] 01-13-2024 03:42-0400 Body temperature 98.4 [degF] [employer] Work Phone: [facility] 01-13-2024 03:42-0400 Body weight 71.85 kg [employer] Work Phone: [facility] 01-13-2024 03:42-0400 Diastolic blood pressure 70 mm[Hg] [employer] Work Phone: [facility] 01-13-2024 03:42-0400 Heart rate 90 /min [employer] Work Phone: [facility] 01-13-2024 03:42-0400 Respiratory rate 18 /min [employer] Work Phone: [facility] 01-13-2024 03:42-0400 SaO2% (BldA) [Mass fraction] 99 % [employer] Work Phone: [facility] 01-13-2024 03:42-0400 Systolic blood pressure 126 mm[Hg] [employer] Work Phone: [facility] 06-14-2023 12:16-0500 Diastolic blood pressure 87 mm[Hg] [facility] 06-14-2023 12:16-0500 Heart rate 78 /min Than[facility] Arizmendi [facility] 06-14-2023 12:16-0500 Mean blood pressure 101 mm[Hg] Thanh Arizmendi [facility] 06-14-2023 12:16-0500 Respiratory rate 16 /min Thanh Arizmendi [facility] 06-14-2023 12:16-0500 Systolic blood pressure 129 mm[Hg] Than[facility] Arizmendi [facility] 04-02-2023 11:26-0500 Body height 180.34 cm [facility] Work Phone: [facility] 04-02-2023 11:26-0500 Body temperature 98.7 [degF] [facility] Work Phone: [facility] 04-02-2023 11:26-0500 Body weight 81.3 kg [facility] Work Phone: [facility] 04-02-2023 11:26-0500 Diastolic blood pressure 75 mm[Hg] [facility] Work Phone: [facility] 04-02-2023 11:26-0500 Heart rate 97 /min [facility] Work Phone: [facility] 04-02-2023 11:26-0500 Respiratory rate 18 /min [facility] Work Phone: [facility] 04-02-2023 11:26-0500 SaO2% (BldA) [Mass fraction] 99 % [facility] Work Phone: [facility] 04-02-2023 11:26-0500 Systolic blood pressure 127 mm[Hg] [facility] Work Phone: [facility] 03-20-2023 06:57-0500 Diastolic blood pressure 74 mm[Hg] [facility] Work Phone: [facility] 03-20-2023 06:57-0500 Heart rate 79 /min [facility] Work Phone: [facility] 03-20-2023 06:57-0500 Respiratory rate 18 /min [facility] Work Phone: [facility] 03-20-2023 06:57-0500 SaO2% (BldA) [Mass fraction] 99 % [facility] Work Phone: [facility] 03-20-2023 06:57-0500 Systolic blood pressure 124 mm[Hg] [facility] Work Phone: [facility] 03-20-2023 04:13-0500 Body height 180.34 cm [facility] Work Phone: [facility] 03-20-2023 04:13-0500 Body temperature 96.8 [degF] [facility] Work Phone: [facility] 03-20-2023 04:13-0500 Body weight 74 kg [facility] Work Phone: [facility] 02-24-2023 09:13-0400 Body height 176.53 cm [facility] Work Phone: [facility] 02-24-2023 09:13-0400 Body temperature 97.8 [degF] [facility] Work Phone: [facility] 02-24-2023 09:13-0400 Body weight 77 kg [facility] Work Phone: [facility] 02-24-2023 09:13-0400 Diastolic blood pressure 81 mm[Hg] [facility] Work Phone: [facility] 02-24-2023 09:13-0400 Heart rate 78 /min [facility] Work Phone: [facility] 02-24-2023 09:13-0400 Respiratory rate 18 /min [facility] Work Phone: [facility] 02-24-2023 09:13-0400 SaO2% (BldA) [Mass fraction] 100 % [facility] Work Phone: [facility] 02-24-2023 09:13-0400 Systolic blood pressure 137 mm[Hg] [facility] Work Phone: [facility] 02-21-2023 04:00-0400 Diastolic blood pressure 74 mm[Hg] [facility] Work Phone: [facility] 02-21-2023 04:00-0400 Heart rate 71 /min [facility] Work Phone: [facility] 02-21-2023 04:00-0400 Respiratory rate 14 /min [facility] Work Phone: [facility] 02-21-2023 04:00-0400 SaO2% (BldA) [Mass fraction] 99 % [facility] Work Phone: [facility] 02-21-2023 04:00-0400 Systolic blood pressure 121 mm[Hg] [facility] Work Phone: [facility] 02-21-2023 00:33-0400 Body height 180.34 cm [facility] Work Phone: [facility] 02-21-2023 00:33-0400 Body temperature 97.4 [degF] [facility] Work Phone: [facility] 02-21-2023 00:33-0400 Body weight 79.37 kg [facility] Work Phone: [facility] 05-17-2022 21:31-0500 Body height 180.34 cm [facility] Work Phone: [facility] 05-17-2022 21:31-0500 Body temperature 98.2 [degF] [facility] Work Phone: [facility] 05-17-2022 21:31-0500 Body weight 79 kg [facility] Work Phone: [facility] 05-17-2022 21:31-0500 Diastolic blood pressure 82 mm[Hg] [facility] Work Phone: [facility] 05-17-2022 21:31-0500 Heart rate 105 /min [facility] Work Phone: [facility] 05-17-2022 21:31-0500 Respiratory rate 18 /min [facility] Work Phone: [facility] 05-17-2022 21:31-0500 SaO2% (BldA) [Mass fraction] 100 % [facility] [employer] Work Phone: [facility] 05-17-2022 21:31-0500 Systolic blood pressure 139 mm[Hg] [facility] [employer] Work Phone: [facility] 04-16-2022 14:56-0500 Body height 179.07 cm [facility] [employer] Work Phone: [facility] 04-16-2022 14:56-0500 Body temperature 98.3 [degF] [facility] [employer] Work Phone: [facility] 04-16-2022 14:56-0500 Body weight 80.55 kg [facility] [employer] Work Phone: [facility] 04-16-2022 14:56-0500 Diastolic blood pressure 80 mm[Hg] [facility] [employer] Work Phone: [facility] 04-16-2022 14:56-0500 Heart rate 88 /min [facility] [employer] Work Phone: [facility] 04-16-2022 14:56-0500 Respiratory rate 22 /min [facility] [employer] Work Phone: [facility] 04-16-2022 14:56-0500 SaO2% (BldA) [Mass fraction] 100 % [facility] [employer] Work Phone: [facility] 04-16-2022 14:56-0500 Systolic blood pressure 141 mm[Hg] [facility] [employer] Work Phone: [facility] Encounters Encounter Date Encounter Type Care Provider Facility Start: 01-13-2024 End: 01-13-2024 Emergency department patient visit [facility] [employer] Work Phone: [facility] Work Phone: Start: 09-24-2023 Telephone encounter Mariana Arizmendi RN Gastroenterology Start: 09-06-2023 Telephone encounter Kirstie Shetty MD Work Phone: [facility] Comment on above: Received Outside Med ical Records Start: 07-25-2023 Telephone encounter Kirstie Shetty MD Work Phone: [facility] Comment on above: returned call Start: 06-14-2023 End: 06-15-2023 ambulatory CJ [facility] [place] [place]: 06-14-2023 End: 06-14-2023 Pain Management Thanh Arizmendi [facility] Start: 04-27-2023 End: 04-27-2023 Patient encounter procedure [facility] Work Phone: [facility] Work Phone: Start: 04-27-2023 End: 04-27-2023 ambulatory [facility] Work Phone: [facility] Work Phone: Start: 04-02-2023 End: 04-02-2023 Emergency department patient visit [facility] Work Phone: [facility] Work Phone: Start: 03-20-2023 End: 03-20-2023 Emergency department patient visit [facility] Work Phone: [facility] Work Phone: Start: 02-24-2023 End: 02-24-2023 Emergency department patient visit [facility] Work Phone: [facility] Work Phone: Start: 02-21-2023 End: 02-21-2023 Emergency department patient visit [facility] Work Phone: [facility] Work Phone: Start: 12-07-2022 Telephone encounter Kirstie Shetty MD Work Phone: Cardiology Comment on above: Assignment Officer - O ther Start: 11-07-2022 End: 11-07-2022 ambulatory [facility] Work Phone: [facility] Work Phone: Start: 11-07-2022 End: 11-07-2022 Patient encounter procedure [facility] [employer] Work Phone: [facility] Work Phone: Start: 10-25-2022 End: 10-25-2022 ambulatory [facility] [employer] Work Phone: [facility] Work Phone: Start: 10-25-2022 End: 10-25-2022 Patient encounter procedure [facility] [employer] Work Phone: [facility] Work Phone: Start: 05-17-2022 End: 05-17-2022 Emergency department patient visit Services [facility] Work Phone: [facility] Work Phone: Start: 04-16-2022 End: 04-16-2022 Emergency department patient visit Services [facility] Work Phone: [facility] Start: 10-11-2021 Telephone encounter Lucy allen RN Gastroenterology Comment on above: Appointment Start: 08-08-2021 End: 08-08-2021 ambulatory Kirstie Shetty MD Work Phone: Thoracic Surgery Comment on above: ACHALASIA (Primary D x) Start: 08-08-2021 End: 08-08-2021 Telemedicine consultation with patient Kirstie Shetty MD Work Phone: [facility] Start: 03-23-2020 End: 03-23-2020 Telephone encounter Mindy Corrigan Work Phone: [facility] Comment on above: Received Outside Med ical Records Procedures Date Procedure Procedure Detail Performing Clinician Start: 04-27-2023 US scan of thyroid [facility] [employer] Work Phone: Start: 03-20-2023 SARS-CoV-2, Influenza & RSV (PCR) Servic [facility] [employer] Work Phone: Start: 03-20-2023 Plain chest X-ray [facility] [employer] Phone: Start: 02-21-2023 Computed tomography of abdomen and pelvis with contrast [facility] [employer] Phone: Start: 11-07-2022 Urine culture [facility] [employer] Phone: Start: 10-25-2022 X-ray of both knees [facility] [employer] Work Phone: Start: 10-25-2022 US, scrotum [facility] [employer] Work Phone: Start: 07-12-2021 Division of muscle Thanh Arizmendi Esophagogastroduodenoscopy Gewn Arizmendi Plan of Treatment Date Care Activity Detail Author Start: 04-02-2033 Urine microalbumin profile DTaP,Tdap,Td Vaccine (3 - Td or Tdap) [facility] Start: 08-09-2030 Urine microalbumin profile DTAP,TDAP,TD (2 - Td or Tdap) [facility] Start: 07-15-2024 DIABETES SCREEN DIABETES SCREEN [facility] Start: 07-15-2024 Diabetes Screening Diabetes Screening [facility] Start: 01-13-2024 Influenza vaccination Influenza Vaccine (Season Ended) [facility] Start: 10-01-2023 End: 10-01-2023 Patient encounter procedure Gastroenterology Comment on above: egd diagnostic Achalasia and cardio spasm [K22.0] Achalasia and cardio spasm Start: 05-14-2023 Behavioral Health Screening Behavioral Health Screening [facility] Start: 05-14-2023 Depression Assessment Depression Assessment [facility] Start: 03-20-2023 Plain chest X-ray XR chest 2V* [facility] Start: 03-20-2023 XR Chest 2 Views [facility] Start: 02-21-2023 Computed tomography of abdomen and pelvis with contrast CT abdomen pelvis w con [facility] Start: 02-21-2023 CT Abdomen and Pelvis W contrast IV [facility] Start: 01-12-2023 Covid-19 Vaccine ( season) Covid-19 Vaccine ( season) [facility] Start: 01-12-2023 Influenza vaccination [facility] Start: 05-14-2022 DEPRESSION ASSESSMENT DEPRESSION ASSESSMENT [facility] Start: 07-18-2021 COVID-19 VACCINE (4 - Moderna series) COVID-19 VACCINE (4 - Moderna series) [facility] Start: 12-29-2020 COLOGUARD (FIT-DNA) COLOGUARD (FIT-DNA) [facility] Start: 12-29-2020 Colonoscopy COLONOSCOPY [facility] Start: 12-29-2020 COLORECTAL CANCER SCREENING COLORECTAL CANCER SCREENING [facility] Start: 12-29-[address] COLONOGRAPHY [facility] Start: 12-29-2020 FECAL OCCULT BLOOD FECAL OCCULT BLOOD [facility] Start: 12-29-2020 Screening for malignant neoplasm of colon [facility] Start: 12-29-2020 SIGMOIDOSCOPY SIGMOIDOSCOPY [facility] Start: 01-13-2020 Influenza vaccination INFLUENZA (#1) [facility] Start: 12-29-2010 Lipid panel Lipid Screening [facility] Start: 12-29-2010 LIPID SCREEN LIPID SCREEN [facility] Start: 12-29-1994 Hepatitis B Vaccine (1 of 3 - 19+ 3-dose series) Hepatitis B Vaccine (1 of 3 - 19+ 3-dose series) [facility] Start: 12-29-1994 Urine microalbumin profile DTAP,TDAP,TD (1 - Tdap) [facility] Start: 12-29-1993 HEPATITIS C SCREENING HEPATITIS C SCREENING [facility] Start: 12-29-1993 Hepatitis C screening Hepatitis C Screening [facility] Start: 12-29-1993 HIV SCREENING HIV SCREENING [facility] Start: 12-29-1993 HIV screening HIV Screening [facility] Start: 1987 Adult depression screening assessment DEPRESSION SCREENING [facility] Start: 12-29-1981 PNEUMOCOCCAL (1 - PCV) PNEUMOCOCCAL (1 - PCV) [facility] Start: 12-29-1981 Pneumococcal vaccination Pneumococcal Vaccine (1 of 2 - PCV) [facility] Start: 1975 HEPATITIS B (1 of 3 - 3-dose series) HEPATITIS B (1 of 3 - 3-dose series) [facility] End: 08-08-2022 EGD - THERAPEUTIC, EUS, OR TUBE INTERVENTIONS EGD - THERAPEUTIC, EUS, OR TUBE INTERVENTIONS Endoscopy Routine ACHALASIA 1 Occurrences starting 08/08/2021 until 08/08/2022 [facility] Work Phone: Comment on above: 1 Occurrences starting 08/08/2021 until 08/08/2022 End: 07-24-2024 EGD DIAGNOSTIC EGD DIAGNOSTIC Endoscopy Routine Achalasia and cardiospasm 1 Occurrences starting 07/25/2023 until 07/24/2024 [facility] Work Phone: Comment on above: 1 Occurrences starting 07/25/2023 until 07/24/2024 Glucose measurement estimated from glycated hemoglobin [facility] Patient Education [facility] Work Phone: Patient referral [facility] Work Phone: End: 08-08-2022 PH VANN INSERT OFF MEDS PH VANN INSERT OFF MEDS Endoscopy Routine ACHALASIA 1 Occurrences starting 08/08/2021 until 08/08/2022 [facility] Work Phone: Comment on above: 1 Occurrences starting 08/08/2021 until 08/08/2022 End: 09-07-2022 Radiologic exam esophagus single contrast study XR ESOPHAGRAM Radiology Routine ACHALASIA 1 Occurrences starting 08/08/2021 until 09/07/2022 [facility] Work Phone: Comment on above: 1 Occurrences starting 08/08/2021 until 09/07/2022 Testosterone Free [Mass/volume] in Serum or Plasma [facility] Thiamine [Moles/volume] in Blood [facility] End: 08-23-2024 XR Esophagus Views W contrast PO XR ESOPHAGRAM Radiology Routine Achalasia and cardiospasm 1 Occurrences starting 07/25/2023 until 08/23/2024 [facility] Work Phone: Comment on above: 1 Occurrences starting 07/25/2023 until 08/23/2024 [facility] Immunizations Immunization Date Immunization Notes Care Provider Fa cility 04-02-2023 tetanus toxoid, redu tho diphtheria toxoid, and acellular pertussis vaccine, adsorbed Services [facility] Work Phone: [facility] 04-27-2021 adenovirus, type 4 a nd type 7, live, oral Kirstie Shetty MD Work Phone: [facility] 04-27-2021 influenza, injectabl e, quadrivalent, contains preservative Kirstie Shetty MD Work Phone: [facility] 04-27-2021 influenza virus vaccine, unspecified formulation Kirstie Shetty MD Work Phone: [facility] 09-28-2020 COVID-19 vaccine, fu ll dose (MODERNA) Kirstie Shetty MD Work Phone: [facility] 08-31-2020 COVID-19 vaccine, fu ll dose (MODERNA) Kirstie Shetty MD Work Phone: [facility] 08-09-2020 tetanus toxoid, redu tho diphtheria toxoid, and acellular pertussis vaccine, adsorbed Kirtsie Shetty MD Work Phone: [facility] 04-29-2020 adenovirus, type 4 a nd type 7, live, oral Kirstie Shetty MD Work Phone: [facility] 03-25-2020 influenza, injectabl e, quadrivalent, contains preservative Kirstie Shetty MD Work Phone: [facility] Payers Date Payer Category Payer Medicaid [id number] 2023 Medicare [id number] 2023 Self-pay [id number] 2020 Medicaid [id number] 2020 [place] [id number] 2020-Present [phone] [address] [place] [address] Medicaid [id number] 2015 Medicare [id number] 2015 Medicare MEDICARE MEDICAR E A AND B [id number] 2015-Present [phone] [address] [address] [place] [address] Medicare [id number] 1975 Unknown [id number] Medicaid Medicaid Out of State [id number] Unknown [id number] Unknown [id number] Unknown [id number] Unknown [id number] Unknown [id number] Unknown [id number] Social History Date Type Detail Facility Tobacco smoking stat us [facility] Unknown if ever smoked [facility] Start: 1975 Sex Assigned At Not on file [facility] Start: 03-02-2021 End: 06-14-2023 Tobacco smoking status NHIS Light tobacco smoker [facility] Work Phone: End: 01-31-2021 History of tobacco use Cigarette Smoker [facility] Work Phone: Start: 03-02-2021 Tobacco use and exposure Smokeless tobacco non-user [facility] Work Phone: Start: 07-13-2021 Alcohol intake Ex-drinker (finding) [facility] Start: 03-02-2021 History SDOH Alcohol Comment previously was drinking >16 drinks in a week, quit ~3 weeks ago [facility] Start: 03-02-2021 Tobacco Comment infrequent one /day smoker [facility] Start: 06-13-2021 End: 07-13-2021 Exposure to SARS-CoV-2 (event) Not sure [facility] Start: 04-16-2022 End: 02-24-2023 Tobacco smoking status [facility] Current some day smoker [facility] Start: 1975 Sex Assigned At Male F [facility] Start: 05-17-2022 End: 03-20-2023 Tobacco smoking status NHIS Ex-smoker (finding) [facility] Start: 07-13-2021 End: 06-11-2022 Gender identity Not on file [facility] Start: 04-02-2023 End: 01-13-2024 Tobacco smoking status NHIS Smoker (finding) [facility] Start: 07-13-2021 End: 06-11-2022 History of Social function [facility] National Score (1-100), lower number is lower risk 87 [facility] Functional Status Date Assessment Result Facility 06-14-2023 Functional Status Telehealth Patient [facility] Clinical Notes 02-22-2020 to 09-24-2023 Telephone Encounter - Mariana Arizmendi RN - 09/24/2023 4:23 PM EDTTelephone Encounter - Mariana Arizmendi RN - 09/24/2023 4:23 PM EDT Note Date & Type Note Facility 09-24-2023 Telephone encount er Note Attempted to reach the patient at the contact number that they provided [phone] (home) . 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 Failure to have a responsible adult accompany the patient to their procedure appointment prevents the use of sedation or anesthesia for their procedure; and can result in cancellation of the procedure NPO instructions were reviewed. Clear liquids the day before the procedure, stop all liquids 4 hours before the procedure Instructions to contact their primary care provider regarding their medications and which medications to stop in preparation for their procedure Instructions to completely read and follow the written instructions that they recieved regarding their procedure. Number to call with questions or concerns [phone] Number to call to cancel their procedure [phone] Mariana Arizmendi RN [facility] 09-24-2023 Miscellaneous Notes Formattin g of this note might be different from the original. Attempted to reach the patient at the contact number that they provided [phone] (home) . 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 Failure to have a responsible adult accompany the patient to their procedure appointment prevents the use of sedation or anesthesia for their procedure; and can result in cancellation of the procedure NPO instructions were reviewed. Clear liquids the day before the procedure, stop all liquids 4 hours before the procedure Instructions to contact their primary care provider regarding their medications and which medications to stop in preparation for their procedure Instructions to completely read and follow the written instructions that they recieved regarding their procedure. Number to call with questions or concerns [phone] Number to call to cancel their procedure [phone] Mariana Arizmendi RN documented in this encounter [facility] 09-06-2023 Telephone encount er Note Received outside notes from the office of Danis Amin MD. Scanned documents in [employer]. Itzel Cheung [employer] [facility] Work Phone (unformatted): [phone] 09-06-2023 Miscellaneous Notes Formattin g of this note might be different from the original. Received outside notes from the office of Danis Amin MD. Scanned documents in [employer]. Itzel Cheung [employer] documented in this encounter [facility] 07-25-2023 Miscellaneous Notes Formattin g of this note might be different from the original. PRINCIPAL DX: Achalasia SURGICAL DX: 07/13/2021 Status Post Robot assisted Heller myotomy with Filiberto fundoplication Last clinic note on 08/08/[address] Shetty A: Ptr s/p robotic heller/Filiberto. Doing well. No complaints. Tolerating a soft diet. CC: dysphagia and requesting pain medication refills Dysphagia, (0, absent; 1, occasional; 2, daily; and 3, with each meal) - 3 Regurgitation (0, absent; 1, occasional; 2, daily; and 3, with each meal) - 3 Chest pain retrosternal (0, absent; 1, occasional; 2, daily; and 3, with each meal) - 3 Weight loss (0, no weight loss; 1, <5 kg; 2, 5-10 kg; and 3, >10 kg) - 1 TOTAL ECKARDT SCORE (sum of above four, maximum score, 12) - 10 Recommendations Demo and insurance updated in system Need records from [facility] xrays done MayJun 2023 Instructed to call the physician that has been prescribing his oxy and other medications since we have not seen him in 2 years. ( states he needs referral for pain management) Plan for TBE , follow up with [facility] EGD by gastro swallowing center. [employer] follow up after testing completed Symone Gore RN, BSN, [facility] Thoracic Nurse Practice Mgr documented in this encounter [facility] 06-14-2023 Evaluation + Plan note Extrac manolo from: Title:Chronic pain Author:Thanh Arizmendi DO Date:06/14/23 Patient is presenting with c omplaints of diffuse musculoskeletal pain as well as gastrointestinal pain as he has had an extensive history of gastrointestinal issues as well as dysphagia odynophagia achalasia and has had Heller myotomy and other workup in the past. He rates his pain as a 7-8 out of 10. He has tried many things for his multiple areas of pain and has diffuse musculoskeletal pain as well. He is very interested in receiving opioid medication and we discussed his OARRS history with him and that he has not received this medication in several months. He was very intent on receiving a new prescription of opioid medication and wanted to discuss where he could start as far as dosing and was very well versed in various opioid medications available and continue to inquire about these medications specifically. When discussing out of medications such as gabapentin noise he was, he was reasonable to try this,, he says this has been somewhat helpful for him as well. He states that he has tried a significant number of medications in the past and opioids with the only thing that had been effective for him. We discussed that due to the nature of his pain as well as concerns for affecting his gastrointestinal transit I would be concerned about this medication as well as his specific request of this medication. We discussed that there are other interventions available but he is not interested in injections or interventional based procedures for his pain. He is very interested in medication therapy. KELLY Score: 74% PHQ-2: 3 Patient denies any symptoms of progressively worsening upper/lower extremity weakness, progressively worsening gait abnormality, new onset bowel/bladder incontinence/ urinary retention, or saddle anesthesia. No new or worsening symptoms of fever, chills, night sweats. 14 Point Review of systems negative unless otherwise noted. General: No acute distress. Patient appears well-nourished. HEENT: Head is normocephalic and external ears are normal in appearance. Cardiovascular: No signs of poor perfusion and no peripheral edema Pulmonary: Nonlabored breathing, symmetric chest movement. GI: Abdomen nondistended Integumentary: No lesions Musculoskeletal: Multiple tender spots throughout body. Neurologic: Alert, oriented x3. 5/5 strength grossly in the bilateral upper extremities. 5/5 strength grossly in the bilateral lower extremities. Special Testing: Negative Harsha sign bilaterally. History, physical examination, and personal review of pertinent imaging results indicate a diagnosis of: -Myofascial pain -Dysphagia Plan: -We do lengthy discussion about the appropriateness of opioids we discussed that this would not be the best place to start with his medications and discussed that since he has been off this medication based on his prescription history he should be well out of window of any concerns for withdrawal at this time and he may even benefit from staying away from opioid therapy as there is a risk of opioid-induced hyperalgesia when taking this medication -Will continue him on gabapentin 300 mg 3 times daily -We prescribed duloxetine we will start at 30 mg for 1 week and increase to 60 mg thereafter -Will follow-up in 6 months or sooner if any issues arise Patient was counseled on the above diagnosis and treatment, all questions were answered and patient agrees to adhere to the plan above. Risk and benefits of appropriate procedures and medications were reviewed as well with patient, who voiced understanding and agreeance. Patient was counseled on appropriate use of opioids if prescribed or renewed today and naloxone was offered to patient if opioids were prescribed or maintained at this visit. Patient was counseled on smoking cessation and/or continuing to abstain from nicotine/tobacco products as appropriate based on history; as smoking/nicotine can contribute to increased pain overall and decreased wound healing. Patient counseled on maintaining a healthy BMI as part of the total treatment of their pain and to reduce stress/strain on joints. Patient invited to return or call with any questions or concerns that arise. [facility]07-27-2023 Miscellaneous Notes* Telephone Encounter - Asia Kamara RN - 12/07/2022 2:21 PM [facility] Contact Center Inbound Phone Encounter DATE of SERVICE: 12/07/2022 TIME of SERVICE: 2:23 PM Status: FYI Service/Provider: Thoracic Surgery Kirstie Shetty M.D. Reason for call: Care Coordination and FYI Contact information: [phone] Resolution: Reinforced education Comments: Pt calling [facility] line. New Physician with [facility] requesting medical information. Pt was unsure on what records they needed. Previous MD retired. Provided FAX # of our Office and appt center # once pt was ready to make follow up. Encouraged to call us back with any further ques tions/assistance. Asia Kamara RN Date of Resolution: 12/07/2022 Time of Resolution 2:23 PM [facility] Miscellaneous Notes* Telephone Encounter - Lucy Nj RN - 10/11/2021 11:25 AM EDT Topic: Pre-Procedure Message Attempted to reach the patient at the contact number that they provided [phone] (home) . 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 Failure to have a responsible adult accompany the patient to their procedure appointment prevents the useof sedation or anesthesia for their procedure; and can result in cancellation of the procedure NPO instructions were reviewed. Instructions to contact their primary care provider regarding their medications and which medications to stop in preparation for their procedure Instructions to completely read and follow the written instructions that they recieved regarding their procedure. Number to call with questions or concerns [phone] Number to call to cancel their procedure [phone] Pairin messages sent, left message saying to review those. Lucy Nj RN documented in [facility] encounterPe[facility]03-28-[facility]22 NoteHNO ID: [id number] Author: Kirstie Shetty MD Service: ? Author Type: Physician Type: Progress Notes Filed: 08/08/2021 2:46 PM Note Text: Follow up Virtual visit today: PRINCIPAL DX: Achalasia SURGICAL DX: 07/13/2021 Status Post Robot assisted Heller myotomy with Filiberto fundoplication Discharged 07/15/2021 Surg/Path: FINAL DIAGNOSIS A. Esophagogastric fat pad, excision: - Mature fibroadipose tissue and four benign lymph nodes with rare non necrotizing granulomas (0/4). - GMS stain pending, the result will be reported as an addendum. ? DSA/kr 07/18/2021 ? at ?2:56 PM Gross Description A. ESOPHAGOGASTRIC FAT PAD. Received in formalin labeled esophagogastric fat pad is a irregular fragment of fibroadipose tissue measuring 1 x 1 x 0.4 cm. Upon dissection, 2 possible lymph nodes are identified measuring 0.3 cm in greatest dimension. The specimen is submitted entirely in cassette A1, lymph nodes intact. [facility], [address] [facility], [facility] [address] ? OLS July 14, 2021 3:43 PM Today's Virtual visit 08/08/2021 Incision location: Abdominal port sites Incision Assessment: well approximated and no drainage Drain/Tubes: N/A Heart: Regular rate AND rhythm Lungs: CTA bilaterally ABD:Soft, +BS--BMs regular Extrem:No edema Afebrile Clinical scoring system for Achalasia (Eckardt Score) Dysphagia, (0, absent; 1, occasional; 2, daily; and 3, with each meal) - 0 Regurgitation (0, absent; 1, occasional; 2, daily; and 3, with each meal) - 0 Chest pain retrosternal (0, absent; 1, occasional; 2, daily; and 3, with each meal) - 0 Weight loss (0, no weight loss; 1, <5 kg; 2, 5?10 kg; and 3, >10 kg) - 0 TOTAL ECKARDT SCORE (sum of above four, maximum score, 12) - 0 In approximately how many days did the patient return to activities of daily living after POEM/Heller?s/Pneumatic Dilation - 15 days Patient instructed to call with any questions or concerns. Patient verbalized understanding of instructions.[facility]03-28-2022 NoteHNO ID: [id number] Author: Kirstie Shetty MD Service: ? Author Type: Physician Type: Progress Notes Filed: 08/08/2021 2:46 PM Note Text: I have read and reviewed the documentation and agree. I wish to add the followingI wish to add the following findings which will be communicated back to the requesting physician. Phone visit 10 minutes. A: Ptr s/p robotic heller/Filiberto. Doing well. No complaints. Tolerating a soft diet. P: RTC in 2 months from TBE and Vann pH. [facility]03-28-[facility]22 History of Present illness Narrative* Kirstie Shetty MD - 08/08/2021 3:30 PM EDT Follow up Virtual visit today: PRINCIPAL DX: Achalasia SURGICAL DX: 07/13/2021 Status Post Robot assisted Heller myotomy with Filiberto fundoplication Discharged 07/15/2021 Surg/Path: FINAL DIAGNOSIS A. Esophagogastric fat pad, excision: - Mature fibroadipose tissue and four benign lymph nodes with rare non necrotizing granulomas (0/4). - GMS stain pending, the result will be reported as an addendum. DSA/kr 07/18/2021 Gross Description A. ESOPHAGOGASTRIC FAT PAD. Received in formalin labeled esophagogastric fat pad is a irregular fragment of fibroadipose tissue measuring 1 x 1 x 0.4 cm. Upon dissection, 2 possible lymph nodes are identified measuring 0.3 cmin greatest dimension. The specimen is submitted entirely in cassette A1, lymph nodes intact. Gross examination performed at [facility], [address] [facility] [address] [facility] July 14, 2021 3:43 PM Today's Virtual visit 08/08/2021 Incision location: Abdominal port sites Incision Assessment: well approximated and no drainage Drain/Tubes: N/A Heart: Regular rate & rhythm Lungs: CTA bilaterally ABD:Soft, +BS--BMs regular Extrem:No edema Afebrile Clinical scoring system for Achalasia (Eckardt Score) Dysphagia, (0, absent; 1, occasional; 2, daily; and 3, with each meal) - 0 Regurgitation (0, absent; 1, occasional; 2, daily; and 3, with each meal) - 0 Chest pain retrosternal (0, absent; 1, occasional; 2, daily; and 3, with each meal) - 0 Weight loss (0, no weight loss; 1, <5 kg; 2, 5 10 kg; and 3, >10 kg) - 0 TOTAL ECKARDT SCORE (sum of above four, maximum score, 12) - 0 In approximately how many days did the patient return to activities of daily living after POEM/Heller s/Pneumatic Dilation - 15 days Patient instructed to call with any questions or concerns. Patient verbalized understanding of instructions. * Kirstie Shetty MD - 08/08/2021 2:26 PM EDT I have read and reviewed the documentation and agree. I wish to add the followingI wish to add the following findings which will be communicated back to the requesting physician. Phone visit 10 minutes. A: Ptr s/p robotic heller/Filiberto. Doing well. No complaints. Tolerating a soft diet. P: RTC in 2 months from TBE and Vann pH. Kirstie Shetty MD documented in this encounterPeoples Hospital10-11-2020 Hospital Discharge instructions Additional Instructions All of your tests looked normal. There is no evidence of any acute problem. There is no record in the chart of a diagnosis of Crohn's disease. I searched your online medical records, and there was also no report of Crohn's disease. The only GI problem I found is the esophageal achalasia that you had surgery for a few years ago. Please follow-up with the GI doctor if they have told you that you have Crohn's disease but it somehow has not been noted in your record, otherwise you can follow-up with your primary care doctor.[facility] Work Phone: Evaluation note* Diagnosis ACHALASIA- Primary Achalasia and cardiospasm documented in this encounter [facility] noteNo assessment information availableUc Medical Center Work Phone: Evaluation note* Diagnosis Achalasia and cardiospasm- Primary [facility] N[facility]ative No data available for this section [facility] Additional Instructions Take the amoxicillin twice a day for 10 days Do not insert anything into your ears May take all of ibuprofen or Tylenol for discomfort Recheck with your family doctorU[facility] Work Phone: Hospital Discharge instructions No data available for this section [facility] Additional Instructions You did strain both groin muscles as you thought. Use some ice for 15 to 20 minutes at a time. I will prescribe some medicine for pain. Follow-up with your doctor. We are happy to see you if there are any significant problems or concerns.[facility] Work Phone: Progress note No data available for this section [facility] (narrative)* Outpatient Procedure (Routine) - Pending Review Specialty Diagnoses / Procedures Referred By Robbin t Referred To Contact [facility] Diagnoses Achalasia and cardiospasm Procedures EGD - THERAPEUTIC, EUS, OR TUBE INTERVENTIONS ESOPHAGOGASTRODUODENOSC OPY [place] [address] [place], [place] [id number] [facility] [place] [address] Referral ID Status Reason Start Date Expiration Date Visits Requested Visits Authorized [id number] Pending Review Auto-Generat ed Referral 08/08/2021 08/08/2022 1 1 * Outpatient Procedure (Routine) - Pending Review Specialty Diagnoses / Procedures Referred By Contac t Referred To Contact [facility] Diagnoses Achalasia and cardiospasm Procedures PH VANN INSERT OFF MEDS GASTROESOPHAG REFLX TEST W/[place]LE[place] [address] [place] [address] [facility] [address] [address] Referral ID Status Reason Start Date Expiration Date Visits Requested Visits Authorized [id number] Pending Review Auto-Generat ed Referral 08/08/2021 08/08/2022 1 1 * Diagnostic Procedure Only (Routine) - Pending Review Specialty Diagnoses / Procedures Referred By Contac t Referred To Contact XR IMAGING Diagnoses Achalasia and cardiospasm Procedures XR ESOPHAGRAM RADIOLOGIC EXAM ESOPHAGUS [place] [address] [place] [address] Xr Imaging Referral ID Status Reason Start Date Expiration Date Visits Requested Visits Authorized [id number] Pending Review Auto-Generat ed Referral 08/08/2021 09/07/2022 1 1 [facility] Outpatient Procedure (Routine) - Pending Review Specialty Diagnoses / Procedures Referred By Contac t Referred To Contact [facility] Diagnoses Achalasia and cardiospasm Procedures EGD DIAGNOSTIC ESOPHAGOGASTRODUODENOSC OPY TRANSORAL DIAGNOSTIC Kirstie Shetty MD [address] [place] [address] [facility] [place] [address] [place] [id number] Referral ID Status Reason Start Date Expiration Date Visits Requested Visits Authorized [id number] Pending Review Auto-Generat ed Referral 07/25/2023 07/24/2024 1 1 * Diagnostic Procedure Only (Routine) - Pending Review Specialty Diagnoses / Procedures Referred By Contac t Referred To Contact XR IMAGING Diagnoses Achalasia and cardiospasm Procedures XR ESOPHAGRAM RADIOLOGIC EXAM ESOPHAGUS SINGLE CONTRAST STUDY Kirstie Shetty MD [address] [place] [address] [place] [address] Referral ID Status Reason Start Date Expiration Date Visits Requested Visits Authorized [id number] Pending Review Auto-Generat ed Referral 07/25/2023 08/23/2024 1 1 [facility] Summary Purpose Family History No Family History Records Found Relationship Condition Age at Onset Recorded Date/T shonna father Heart disease Unknown Not Specified Arthritis Unknown Relationship Condition Age at Onset Recorded Date/T shonna father Heart disease Unknown mother Arthritis Unknown father Family history of mental disorder Unknown Malignant neoplasm Unknown Diabetes mellitus Unknown Hypertension Unknown Heart disease Unknown mother Diabetes mellitus Unknown Advance Directives No Advanced Directives Records Found Advance Directive Response Recorded Date/ Time Advance Directives No April 10:57am Advance Directive Response Recorded Date/ Time Advance Directives No April 11:57am Chief Complaint and Reason for Visit Chief Complaint r ear pain Chief Complaint r ear pain R Ear Pain Chief Complaint n50.811 Chief Complaint n50.811 R53.82 E78.5 R73.03 Chief Complaint Abd pain Chief Complaint Abd pain shakey Chief Complaint Abd pain shakey cold symptoms Chief Complaint Abd pain shakey cold symptoms Cut Right hand middle finger E04.1 Chief Complaint L leg injury Additional Source Comments Source Comments (unrecognize d section and content) In the event this informatio n is protected by the Federal Confidentiality of Alcohol and Drug Abuse Patient Records regulations: The Federal rules restrict any use of the information to criminally investigate or prosecute any alcohol or drug abuse patient.[facility] HospitalIn the event this information is protected by the Federal Confidentiality of Alcohol and Drug Abuse Patient Records regulations: The Federal rules restrict any use of the information to criminally investigate or prosecute any alcohol or drug abuse patient.[facility] HospitalIn the event this information is protected by the Federal Confidentiality of Alcohol and Drug Abuse Patient Records regulations: The Federal rules restrict any use of the information to criminally investigate or prosecute any alcohol or drug abuse patient.[facility] HospitalIn the event this information is protected by the Federal Confidentiality of Alcohol and Drug Abuse Patient Records regulations: The Federal rules restrict any use of the information to criminally investigate or prosecute any alcohol or drug abuse patient.[facility] HospitalIn the event this information is protected by the Federal Confidentiality of Alcohol and Drug Abuse Patient Records regulations: The Federal rules restrict any use of the information to criminally investigate or prosecute any alcohol or drug abuse patient.[facility] HospitalIn the event this information is protected by the Federal Confidentiality of Alcohol and Drug Abuse Patient Records regulations: The Federal rules restrict any use of the information to criminally investigate or prosecute any alcohol or drug abuse patient.[facility] HospitalIn the event this information is protected by the Federal Confidentiality of Alcohol and Drug Abuse Patient Records regulations: The Federal rules restrict any use of the information to criminally investigate or prosecute any alcohol or drug abuse patient.[facility] Reason for Visit (unrecogniz ed section and content) Reason Comments Received Outside Medical Records Reason Comments Difficulty Swallowing Reason Comments Appointment Reason Comments Assignment Officer - Other Reason Comments returned call Telephone Encounter - Moira Mercer - 03/23/2020 3:50 PM EST Miscellaneous Notes (unrecog nized section and content) Records received and placed in Dr. Corrigan's folder for COLOR ARTIST abstract documented in this encounter Care Teams (unrecognized sec tion and content) Lead Systems Engineer Relationship Specialty Start Date End Date Mindy Corrigan MD [address] [place] [address] Referring Gastroenterology 04/21/21 Lead Systems Engineer Relationship Specialty Start Date End Date Mindy Corrigan MD [address] [place] [address] Referring Gastroenterology 04/21/21 Team Status: Inactive Member Role Status [facility] Primary Care Provider Active Gretta Galvan [facility] Emergency Provider Active Team Status: Active Member Role Status [facility] Primary Care Provider Active Team Status: Inactive Member Role Status [facility] Primary Care Provider Active Cliff Chapman DO Emergency Provider Active Team Status: Inactive Member Role Status [facility] Primary Care Provider Active Jeevan Freire DO Attending Provider Active Anurag Butler DO RES Other Provider Active Team Status: Inactive Member Role Status [facility] Primary Care Provider Active Sammi Contreras MD Attending Provider Active Anurag Butler DO RES Other Provider Active Lead Systems Engineer Relationship Specialty Start Date End Date Mindy Corrigan MD [address] [place] [address] Referring Gastroenterology 04/21/21 Team Status: Inactive Member Role Status [facility] Services [facility] Primary Care Provider Active Joana Luevano Jr, MD Emergency Provider Active Team Status: Inactive Member Role Status [facility] Primary Care Provider Active Bang Ku APRN Emergency Provider Active Team Status: Inactive Member Role Status [facility] Primary Care Provider Active Jeevan Freire DO Attending Provider Active Brayan Rolle DO RES Referring Provider Active Lead Systems Engineer Relationship Specialty Start Date End Date Mindy Corrigan MD [address] [place] [address] Referring Gastroenterology 04/21/21 Lead Systems Engineer Relationship Specialty Start Date End Date Mindy Corrigan MD [address] [place] [address] Referring Gastroenterology 04/21/21 Danis Amin MD [address] [facility] [address] [place] [address] Gastroenterology 08/27/23 Lead Systems Engineer Relationship Specialty Start Date End Date Mindy Corrigan MD [address] [place] [address] Referring Gastroenterology 04/21/21 Danis Amin MD [address] [facility] [address] [place] [address] Gastroenterology 08/27/23 Team Status: Inactive Member Role Status Dates Services [facility] Primary Care Provider Active Start: January 13, 2024 End: January 13, 2024 Joana Luevano Jr, MD Emergency Provider Active Start: January 13, 2024 End: January 13, 2024 (unrecognized sect ion and content) No Status Records FoundNo Status Records FoundNo Status Records FoundNo Status Records Found INFORMATION SOURCE (unrecogn ized section and content) DATE CREATED AUTHOR 08/14/2021 Greg Mayerit al DATE CREATED AUTHOR AUTHOR'S ORGANIZ ATION 06/15/2023 [facility] DATE CREATED AUTHOR AUTHOR'S ORGANIZ ATION 09/26/2023 [facility] DATE CREATED AUTHOR AUTHOR'S ORGANIZ ATION 01/29/2024 [facility] Goals (unrecognized section and content) Goals may be documented in a n alternate sectionGoals may be documented in an alternate sectionGoals may be documented in an alternate sectionGoals may be documented in an alternate sectionGoals may be documented in an alternate sectionGoals may be documented in an alternate sectionGoals may be documented in an alternate sectionGoals may be documented in an alternate section No data available for this sectionGoals may be documented in an alternate section FOR RECORDS PERTAINING TO PATIENTS WHO ARE OR HAVE BEEN ENROLLED IN A CHEMICAL DEPENDENCY/SUBSTANCEABUSE PROGRAM, SOME INFORMATION MAY BE OMITTED. This clinical summary was aggregated from multiple sources. Caution should be exercised in using it in the provision of clinical care. This summary normalizes information from multiple sources, and as a consequence, information in this document may materially change the coding, format and clinical context of patient data. In addition, data may be omitted in some cases. CLINICAL DECISIONS SHOULD BE BASED ON THE PRIMARY CLINICAL RECORDS. [facility] [employer] [facility]. provides no warranty or guarantee of the accuracy or completeness of information in this document.
== END 2024-02-07 10:28 | disposition home or self-care (01) ==
PROVIDERS: Visit Provider Physician Assistant
DX: M25.561 Pain in right knee (principal); M25.461 Effusion, right knee
CPT/HCPCS: 70250; 71045; 73721; 74018

== ENCOUNTER 2024-08-02 16:14 | Emergency (ER) | payer MEDICARE, MEDICAID, SELFPAY ==
[2024-08-02 16:22] VITALS: BP 138/88; PULSE 98; TEMP 36.6; O2SAT 100; BMI 27.9
--- OUTSIDE RECORDS SUMMARY | 2024-08-02 16:22 | XMS_ITS | CCD ---
Author Organization [facility] Care Team Providers [facility] Technician Name Role Phone Unavailable Primary Care Provider Unavailjoseline Corrigan MD, Armenian Unavailable [facility] Primary Care Provider [phone] [facility] Gretta Hilario Emergency Provider DO Cliff Chapman Emergency Provider [facility] Primary Care Provider DO Jeevan Freire Attending Provider DO Anurag Butler Other Provider MD Sammi Contreras Attending Provider [phone] Meenu QUINTEROS, Armenian Unavailable [facility] Primary Care Provider [phone] MD Joana Luevano Jr Emergency Provider BETTY Ku Emergency Provider [facility] Primary Care Provider [phone] MD Joana Luevano Jr Emergency Provider BETTY Ku Emergency Provider DO Jeevan Freire Attending Provider DO Brayan Rolle Referring Provider CJ MANUEL Primary Care Physician [phone] CJ MANUEL Referring Unavailable CJ MANUEL Primary Care Unavailable Thanh Arizmendi Attending Unavailable Thanh Arizmendi Admitting Unavailable Danis Amin MD Unavailable [facility] Primary Care Provider [phone] MD Joana Luevano Jr Emergency Provider [facility] Care Unavaila ble Noam Kuothy Admitting Unavailable Bang Ku Attending Unavailable Joana Luevano Jr Admitting Unavailable Joana Luevano Jr Attending Unavailable [facility] Care Unavaila ble [facility] Care Unavaila ble Brayan Rolle Referring Unavailable Jeevan Freire Admitting Unavailable Jeevan Freire Attending Unavailable [facility] Care Unavaila Joana Patel Jr Admitting Unavailable Joana Luevano Jr Attending Unavailable [facility] Care Unavaila ble Noam Kuothy Admitting Unavailable Bang Ku Attending Unavailable [facility] Care Unavaila ble Joana Luevano Jr Admitting Unavailable Joana Luevano Jr Attending Unavailable Allergies Allergy Classification Reported Allergen(s) Allergy Type Date of Onset Reaction(s) Facility (17 sources) Latex; Translations: [Latex] Drug Allergy 03-05-20 20 Rash, Unknown (qualifier value) [facility] (15 sources) methylPREDNISolone Drug Allergy 05-03-20 19 Other: See Comments [facility] Work Phone: (8 sources) predniSONE; Translations: [prednisone] Drug Allergy 01-04-20 21 Other: See Comments, Vomiting (disorder) [facility] Work Phone: (2 sources) Metoclopramide; Translations: [metoclopramide] Drug Allergy Vomiting (disorder) [facility] (1 source) Latex Drug allergy (disorder) 01-13-20 24 [facility] (1 source) methylPREDNISolone Drug Allergy 01-13-20 [facility] Medications Current Medications Medication Drug Class(es) [...] day(s), # 90 cap(s), Refills(s) 3, Pharmacy: [facility]/pharmacy #[id number], 175, cm, 06/14/23 12:41:00 EST, [...] 03, 2019 1:00am February 24, 2023 9:10am Corinna (No Known Home Meds) (3 sources) Start: 03-20-2023 Corinna (No Kn own Home Meds) Active March 20, 2023 12:00am Start: 02-24-2023 Corinna (No own Home Meds) Active February 24, [...] 10 mL injection (DEFINITY) polyethylene glycol 3350 54159 mg powder for oral solution (6 sources) [...] day(s), # 60 cap(s), Refills(s) 2, Pharmacy: [facility]/pharmacy #[id number], 175, cm, 06/14/23 12:41:00 EST, [...] Test Name Value Interpretation Reference Range Facility [facility] PERI YOU ([id number]) 1975 M Date Time Provider Department 09/24/23 MARIANA ARIZMENDI GAPRA3 During your visit today, we recorded the following information about you: Mariana Arizmendi RN 09/24/2023 4:26 PM Signed Attempted to reach the patient at the contact number that they provided [phone] (home) . Unable to speak with patient so without identifying the patient the following information was left on their voice mail: Date of procedure, location and report time Prep instructions A message was left informing the patient/patient field service representative they must have a responsible adult [...] Number to call with questions or concerns [phone] Number to call to cancel their procedure [phone] Mariana Arizmendi RN Allergies As of Date: [...] by MARIANA ARIZMENDI on 09/24/23 [facility] 09-06-2023 CNPN Telephone (THORMN) PERI YOU ([id number]) 1975 M Date Time Provider Department 09/06/23 KIRSTIE SHETTY During your visit today, we recorded the following information about you: Itzel Garces 09/06/2023 1:10 PM Signed Received outside notes from the office of Danis Amin MD. Scanned documents in [employer]. 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 Allergies As of Date: 09/06/2023 Noted Allergy Reaction LATEX 03/05/2020 2 - Rash METHYLPREDNISOLONE 05/03/2019 14 - Other: See Comments Comments: Emesis and blacking out PREDNISONE 01/03/2021 14 - Other: See Comments Comments: Emesis and blacking out Date Reviewed: 07/15/2021 Reviewed by: Raquel Brandon, BETH - Fully Assessed Reason for Visit: Received Outside Medical Records [1806] Prescriptions as of 09/06/2023 - lidocaine (SALONPAS) [...] Encounter Status:Closed by SYMONE GORE on 09/06/23 [facility] 07-25-2023 CNPN Telephone (ADEN) PERI YOU ([id number]) 1975 M Date Time Provider Department 07/25/23 [...] insurance updated in system Need records from [facility] xrays done MayJun 2023 Instructed to call the physician that has been prescribing his oxy and other medications since we have not seen him in 2 years. ( states he needs referral for pain management) Plan for TBE , follow up with RECYCLING MANAGER EGD by gastro swallowing center. RECYCLING MANAGER follow up after testing completed Symone Gore RN, BSN, [facility] Thoracic Nurse Practice Mgr Symone Gore [...] Visit Diagnosis:Achalasia and cardiospasm [K22.0] Order(s):XR ESOPHAGRAM [1914990] Order #: [id number] FUTURE EGD DIAGNOSTIC [GI9] Order #: [id number] FUTURE Prescriptions as of 09/06/2023 - lidocaine [...] Status:Closed by SYMONE GORE on 07/27/23 Normal [facility] Consent for Treatmenton Consent for Treatment [id number]#1 .00TIFF Normal [facility] Consultation Noteon 06-14-19 Consultation Note Patient [...] with any questions or concerns that arise. [facility] Comment on above: Result Comment: Elec tronically Signed By: Faizan MCNALLY, Thanh Juárezbr\Date and Time Signed: 06/14/23 13:11 EST HIPAA Forms Officeon 024 HIPAA Forms Office [id number]#1 .00TIFF [facility] Legal Correspondence Officeo n 06-14-2023 Legal Correspondence Office [id number]#1 .00TIFF [facility] Legal Correspondence Office [id number]#1 .00TIFF [facility] Office/Clinic Note-Physician on 06-14-2023 Office/Clinic Note-Physician [id number]#1 .00TIFF [facility] Patient Correspondenceon Patient Correspondence [id number]#1 .00TIFF [facility] Patient Correspondence [id number]#1 .00TIFF [facility] Patient Correspondence [id number]#1 .00TIFF [facility] Patient Correspondence [id number]#1 .00TIFF [facility] Patient Correspondence [id number]#1 .00TIFF [facility] Patient History Officeon Patient History Office [id number]#1 .00TIFF Normal [facility] Patient History Office [id number]#1 .00TIFF Normal [facility] Radiology Outside Office Taxicab Dispatcher yon 06-14-2023 Radiology Outside Office Copy [id number]#1 .00TIFF Normal [facility] Outside Records Officeon Outside Records Office [id number]#1. 00TIFF Normal [facility] Referrals Officeon 3 Referrals Office [id number]#1. 00TIFF Normal [facility] Thyroid Stim Hormone w/Rflxo n 04-27-2023 Thyroid Stim Hormone w/Rflx 0.50 u[iU]/mL Normal 0.45-5.33 [facility] Comment on above: Order Comment: Reaso n for Exam Thyroid nodule Result Comment: PERF ORMED BY: [place] [address] PATHOLOGIST SPORTS INFORMATION DIRECTOR EMRE FIELD M.D. Performed By: #### T SH3 wRFLX #### [address] Thyrotropin [Units/volume] i n Serum or PlasmaOrdered By: Brayan Rolle on 04-27-2023 TSH Qn 0.50 m[IU]/L 0.45-5.33 [facility] US thyroidon 04-27-2023 US thyroid [facility] [place] [address] Ultrasound Report Signed Patient: Peri You MR#: [id number] 443 : 1975 Acct:[id number] Age/Sex: 47 / M ADM Date: 04/27/23 Loc: Room: Type: [facility] Attending Dr: Jeevan Freire DO Ordering [...] Godwin Jackson M.D.04/27/2023 5:18 PM Dictation Location: [place] [address] Tech: Elsa Echols Transcribed By: HALEY 04/27/231717 Dictated By: Godwin Jackson DO 04/27/231705 Signed By: 04/27/231717 Normal [facility] COVID CepheidOrdered By: Myles Luevano on 03-20-2023 SARS-CoV-2 (COVID-19) Ab IA Ql Negative Negative [facility] Comment on above: This is a duplicate Cepheid Xpert Xpress CoV-2/Flu/RSV Plus RNA by RT-PCR result to be used for statistical tracking purpose only. SARS-CoV-2 (COVID-19) RNA MILADYS+probe Ql (Unsp spec) [facility] COVID-19 / Flu A/B / RSV PCR [...] or Cepheid Disclaimer revoked sooner. PERFORMED BY: [place] [address] PATHOLOGIST SPORTS INFORMATION DIRECTOR EMRE FIELD M.D. Normal [facility] Comment on above: Performed By: #### C OVID19 FLU RSV, CEPHEID NEG #### [place] [id number] [facility] Cepheid COVID PCR Negativeon 03-20-2023 SARS-CoV-2 (COVID-19) RNA MILADYS+probe Ql (Unsp spec) Negative Normal Negative [facility] Comment on above: Result Comment: This is a duplicate Cepheid Xpert Xpress CoV-2/Flu/RSV Plus RNA by RT-PCR result to be used for statistical tracking purpose only. PERFORMED BY: [place] [address] PATHOLOGIST SPORTS INFORMATION DIRECTOR EMRE FIELD M.D. Performed By: #### C OVID19 FLU RSV, CEPHEID NEG #### [facility] [address] XR chest 2V*on 03-20-2023 XR chest 2V* [facility] [place] [address] [place] [id number] XRay Report Signed Patient: Peri You MR#: [id number] 443 : 1975 Acct:[id number] Age/Sex: 47 / M ADM Date: 03/20/23 Loc: ER Room: Type: [facility] ER Attending Dr: Copies to: Joana Luevano [...] Godwin Jackson M.D.03/20/2023 8:14 AM Dictation Location: [place] [address] Transcribed By: [facility] 03/20/23813 Dictated By: Godwin Jackson DO 03/20/23813 Signed By: 03/20/23813 Normal [facility] Capillary blood glucose magdaleno urement by glucometer (mass/volume)Ordered By: Bang Ku on 02-24-2023 Glucose [Mass/Vol] 96 mg/dL Normal [facility] Comment on above: Random Glucose Refer ence Range is dependent on time and content of last meal. Glucose of more than 200 mg/dL in a nonstressed, ambulatory subject supports the diagnosis of Diabetes Mellitus. Result Comment: [place] om Glucose Reference Range is dependent on time and content of last meal. Glucose of more than 200 mg/dL in a nonstressed, ambulatory subject supports the diagnosis of Diabetes Mellitus. PERFORMED BY: [place] [address] PATHOLOGIST SPORTS INFORMATION DIRECTOR EMRE FIELD M.D. Performed By: #### G DON #### Point of Care testing , Alanine aminotransferase [En zymatic activity/volume] in Serum or PlasmaOrdered By: Joana Luevano on 02-21-2023 ALT [Catalytic activity/Vol] 10 U/L Normal 7-52 [facility] Comment on above: Performed By: #### H S TROP, CMP, LIPASE, CBC ####[place] [address] [address] Albumin [Mass/volume] in Ser um or Plasma by Bromocresol green (BCG) dye binding methoOrdered By: Joana Luevano on 02-21-2023 Albumin BCG dye [Mass/Vol] 4.3 g/dL 3.5-5.7 [facility] Alkaline phosphatase [Enzyma tic activity/volume] in Serum or PlasmaOrdered By: Joana Luevano on 02-21-2023 ALP [Catalytic activity/Vol] 62 U/L Normal 34-104 [facility] Comment on above: Performed By: #### H S TROP, CMP, LIPASE, CBC ####[place] [address] [address] Aspartate aminotransferase [ Enzymatic activity/volume] in Serum or PlasmaOrdered By: Joana Luevano on 02-21-2023 AST [Catalytic activity/Vol] 18 U/L Normal 13-39 [facility] Comment on above: Performed By: #### H S TROP, CMP, LIPASE, CBC ####[place] [address] Automated basophil %Ordered By: Joana Luevano on 02-21-2023 Basophils/100 WBC (Bld) 0.9 % Normal . [facility] Comment on above: Performed By: #### H S TROP, CMP, LIPASE, CBC #### [address] Automated basophil countOrde red By: Joana Luevano on 02-21-2023 Basophils (Bld) [#/Vol] 0.1 10*3/uL Normal 0.0-0.2 [facility] Comment on above: Result Comment: PERF ORMED BY: [place] [address] PATHOLOGIST SPORTS INFORMATION DIRECTOR EMRE FIELD M.D. Performed By: #### H S TROP, CMP, LIPASE, CBC #### [address] Automated blood monocyte cou ntOrdered By: Joana Luevano on 02-21-2023 Monocytes (Bld) [#/Vol] 0.5 10*3/uL Normal 0.0-0.8 [facility] Comment on above: Performed By: #### H S TROP, CMP, LIPASE, CBC #### [address] Automated eosinophil %Ordere d By: Joana Luevano on 02-21-2023 Eosinophils/100 WBC (Bld) 0.8 % Normal . [facility] Comment on above: Performed By: #### H S TROP, CMP, LIPASE, CBC #### [address] Automated eosinophil countOr dered By: Joana Luevano on 02-21-2023 Eosinophils (Bld) [#/Vol] 0.1 10*3/uL Normal 0.0-0.45 [facility] Comment on above: Performed By: #### H S TROP, CMP, LIPASE, CBC #### [address] Automated monocyte %Ordered By: Joana Luevano on 02-21-2023 Monocytes/100 WBC (Bld) 5.7 % Normal . [facility] Comment on above: Performed By: #### H S TROP, CMP, LIPASE, CBC #### [address] Automated neutrophil %Ordere d By: Joana Luevano on 02-21-2023 Neutrophils/100 WBC (Bld) 71.1 % Normal . [facility] Comment on above: Performed By: #### H S TROP, CMP, LIPASE, CBC #### [address] Automated urine color determ inationOrdered By: Joana Luevano on 02-21-2023 Color (U) Yellow Normal Yellow [facility] Comment on above: Order Comment: Name Collection Type:: Clean-Voided Midstream Performed By: #### U A #### [facility] [address] [place] [id number] [facility] Bilirubin Test strip Ql (U)O rdered By: Joana Luevano on 02-21-2023 Bilirubin Ql (U) Negative Negative [facility] Bilirubin.total [Mass/volume ] in Serum or PlasmaOrdered By: Joana Luevano on 02-21-2023 Bilirubin [Mass/Vol] 0.3 mg/dL Normal 0.3-1.0 [facility] Comment on above: Performed By: #### H S TROP, CMP, LIPASE, CBC ####[facility] [id number] abdomen pelvis w conon CT abdomen pelvis w con [facility] [address] [place] [address] [place] [address] CT Scan Report Signed Patient: Peri You MR#: [id number] 443 : 1975 Acct:[id number] Age/Sex: 47 / M ADM Date: 02/21/23 Loc: ER Room: Type: [facility] ER Attending Dr: Copies to: Joana Luevano [...] No acute findings. Prostatomegaly. Impression dictated by: Crhis Gregorio Jr., D.OAmbrosio02/21/2023 10:06 AM Dictation Location: [place] [address] Transcribed By: [facility] 02/21/23 1006 Dictated By: Chris Gregorio Jr DO 02/21/23 1002 Signed By: 02/21/23 1006 Normal [facility] Calcium [Mass/volume] in Ser um or PlasmaOrdered By: Joana Luevano on 02-21-2023 Calcium [Mass/Vol] 9.3 mg/dL Normal 8.6-10.3 [facility] Comment on above: Performed By: #### H S TROP, CMP, LIPASE, CBC ####[place] [address] [address] Carbon dioxide, total [Moles /volume] in Serum or PlasmaOrdered By: Joana Luevano on 02-21-2023 CO2 [Moles/Vol] 26.9 mmol/L Normal 21.0-31.0 [facility] Comment on above: Performed By: #### H S TROP, CMP, LIPASE, CBC ####[place] [address] [place] [id number] [facility] Chloride [Moles/volume] in S federico or PlasmaOrdered By: Joana Luevano on 02-21-2023 Chloride [Moles/Vol] 104 mmol/L Normal 98-107 [facility] Comment on above: Performed By: #### H S TROP, CMP, LIPASE, CBC ####[facility] Ezz[address]76 [place] [id number] [facility] Complete Blood Count Auto Di ffon 02-21-2023 Mean Corpuscular HGB Conc 33.9 g/dL Normal 32.5-35.6 [facility] Comment on above: Performed By: #### H S TROP, CMP, LIPASE, CBC #### [address] Monocytes/100 WBC (Bld) 16.15 % Normal 0.00-20.00 [facility] Comment on above: Performed By: #### H S TROP, CMP, LIPASE, CBC #### [address] NRBC% 0.2 /100{WBC} Normal 0-0.5 [facility] Comment on above: Performed By: #### H S TROP, CMP, LIPASE, CBC #### [address] Comprehensive Metabolic Pane brent 02-21-2023 Albumin [Mass/Vol] 4.3 g/dL Normal 3.5-5.7 [facility] Comment on above: Performed By: #### H S TROP, CMP, LIPASE, CBC ####[address] Creatinine Clr Calc Pharmacy 115.79 Normal [facility] Comment on above: Performed By: #### H S TROP, CMP, LIPASE, CBC ####[address] GFR/1.73 sq M.predicted MDRD (S/P/Bld) [Vol rate/Area] mL/min/{1.73_m2} Normal [facility] Comment on above: Performed By: #### H S TROP, CMP, LIPASE, CBC ####[address] Creatinine [Mass/volume] in Serum or PlasmaOrdered By: Joana Luevano on 02-21-2023 Creatinine [Mass/Vol] 0.84 mg/dL Normal 0.70-1.30 [facility] Comment on above: Performed By: #### H S TROP, CMP, LIPASE, CBC ####[address] ECG 12 lead ECGon 02-21-2023 ECG 12 lead ECG [facility] [address] [place] [address] [place] [address] Electrocardiograph Report Signed Patient: Peri You MR#: [id number] 443 : 1975 Acct:[id number] Age/Sex: 47 / M ADM Date: 02/21/23 Loc: ER Room: Type: [facility] ER Attending Dr: Ordering Provider: Joana Luevano [...] ECGs available Confirmed by JOANA LUEVANO MD ([id number]) on 02/21/2023 4:48:22 AM Referred By: Electronically Signed By:JOANA LUEVANO MD Transcribed By: MUS Signed By Joana Luevano Jr, MD 0448 Normal [facility] Erythrocyte distribution wid th [Ratio] by Automated countOrdered By: Joana Luevano on 02-21-2023 Erythrocyte distribution width (RBC) [Ratio] 15.3 % High 12.0-14.8 [facility] Comment on above: Performed By: #### H S TROP, CMP, LIPASE, CBC #### [facility] [address] Erythrocytes [#/volume] in B lood by Automated countOrdered By: Joana Luevano on 02-21-2023 RBC (Bld) [#/Vol] 4.68 10*6/uL Normal 3.90-5.[address] [facility] Comment on above: Performed By: #### H S TROP, CMP, LIPASE, CBC #### [facility] [address] [place] [id number] [place] Glucose [Mass/volume] in Ser um or PlasmaOrdered By: Jaona Luevano on 02-21-2023 Glucose [Mass/Vol] 95 mg/dL Normal 70-100 [facility] Comment on above: ADA recommended refe rence rangeRandom Glucose Reference Range is dependent on time and content of last meal. Glucose of more than 200 mg/dL in a nonstressed, ambulatory subject supports the diagnosis of Diabetes Mellitus. Result Comment: [facility] Glucose Reference Range is dependent on time and content of last meal. Glucose of more than 200 mg/dL in a nonstressed, ambulatory subject supports the diagnosis of Diabetes Mellitus. ADA recommended reference range Performed By: #### H S TROP, CMP, LIPASE, CBC ####[facility] [id number] Hematocrit [Volume Fraction] of Blood by Automated countOrdered By: Joana Luevano on 02-21-2023 Hematocrit (Bld) [Volume fraction] 39.1 % Normal 38.8-50.0 [facility] Comment on above: Performed By: #### H S TROP, CMP, LIPASE, CBC #### [facility] [address] Hemoglobin [Mass/volume] in BloodOrdered By: Joana Luevano on 02-21-2023 Hemoglobin (Bld) [Mass/Vol] 13.2 g/dL Normal 13.0-17.0 [facility] Comment on above: Performed By: #### H S TROP, CMP, LIPASE, CBC #### [facility] [address] Ketones Auto test strip (U) [Mass/Vol]Ordered By: Joana Luevano on 02-21-2023 Ketones (U) [Mass/Vol] Negative Negative [facility] Leukocytes [#/volume] correc manolo for nucleated erythrocytes in Blood by Automated counOrdered By: Joana Luevano on 02-21-2023 WBC corrected for nucl RBC Auto (Bld) [#/Vol] 9.3 10*3/uL 4.1-10.5 [facility] Leukocytes [#/volume] in Blo od by Automated countOrdered By: Joana Luevano on 02-21-2023 WBC (Bld) [#/Vol] 9.3 10*3/uL Normal 4.1-10.5 [facility] Comment on above: Performed By: #### H S TROP, CMP, LIPASE, CBC #### [facility] [address] [place] [address] [place] Lipase [Enzymatic activity/v olume] in Serum or PlasmaOrdered By: Joana Luevano on 02-21-2023 Lipase [Catalytic activity/Vol] 59.0 U/L Normal 11.0-82.0 [facility] Comment on above: Result Comment: PERF ORMED BY: [place] [address] PATHOLOGIST SPORTS INFORMATION DIRECTOR EMRE FIELD M.D. Performed By: #### H S TROP, CMP, LIPASE, CBC ####[facility] [id number] [place] [address] [place] Lymphocytes [#/volume] in Bl ood by Automated countOrdered By: Joana Luevano on 02-21-2023 Lymphocytes (Bld) [#/Vol] 2.0 10*3/uL Normal 1.00-4.8 [facility] Comment on above: Performed By: #### H S TROP, CMP, LIPASE, CBC #### [facility] [address] [place] [address] [place] Lymphocytes/100 leukocytes i n Blood by Automated countOrdered By: Joana Luevano on 02-21-2023 Lymphocytes/100 WBC (Bld) 21.5 % Normal . [facility] Comment on above: Performed By: #### H S TROP, CMP, LIPASE, CBC #### [facility] [address] [place] [address] MCH [Entitic mass] by Automa manolo countOrdered By: Joana Luevano on 02-21-2023 MCH (RBC) [Entitic mass] 28.3 pg Normal 27.5-35.2 [facility] Comment on above: Performed By: #### H S TROP, CMP, LIPASE, CBC #### [facility] [address] [place] [address] [place] MCHC Auto (RBC) [Mass/Vol]Or dered By: Joana Luevano on 02-21-2023 MCHC (RBC) [Mass/Vol] 33.9 g/dL 32.5-35.6 [facility] MCV [Entitic volume] by Auto mated countOrdered By: Joana Luevano on 02-21-2023 MCV (RBC) [Entitic vol] 83.5 fL Normal 83.5-101 [facility] [place] Comment on above: Performed By: #### H S TROP, CMP, LIPASE, CBC #### [facility] [address] Monocyte distribution width [Entitic volume] in Blood by AutomatedOrdered By: Joana Luevano on 02-21-2023 Monocyte distribution width Auto (Bld) [Entitic vol] 16.15 % 0.00-20.00 [facility] Neutrophils [#/volume] in Bl ood by Automated countOrdered By: Joana Luevano on 02-21-2023 Neutrophils (Bld) [#/Vol] 6.6 10*3/uL Normal 1.8-7.7 [facility] Comment on above: Performed By: #### H S TROP, CMP, LIPASE, CBC #### [facility] [address] [address] Nitrite Test strip Ql (U)Ord ered By: Joana Luevano on 02-21-2023 Nitrite Ql (U) Negative Negative [facility] No Panel InformationOrdered By: Joana Luevano on 02-21-2023 Estimated GFR (CKD-EPI) > 60.0 mL/Min [facility] Creatinine Clearance (Chem 115.79 [facility] Nucleated erythrocytes [Pres ence] in Blood by Automated countOrdered By: Joana Luevano on 02-21-2023 Nucleated RBC Auto Ql (Bld) 0.2 /100{WBC} 0-0.5 [facility] Platelet mean volume [Entiti c volume] in Blood by Automated countOrdered By: Joana Luevano on 02-21-2023 Platelet mean volume (Bld) [Entitic vol] 7.5 fL Normal 6.6-10.1 [facility] Comment on above: Performed By: #### H S TROP, CMP, LIPASE, CBC #### [facility] [address] [place] [address] [place] Platelets [#/volume] in Bloo d by Automated countOrdered By: Joana Luevano on 02-21-2023 Platelets (Bld) [#/Vol] 228 10*3/uL Normal 150-450 [facility] Comment on above: Performed By: #### H S TROP, CMP, LIPASE, CBC #### [facility] [address] Potassium [Moles/volume] in Serum or PlasmaOrdered By: Joana Luevano on 02-21-2023 Potassium [Moles/Vol] 3.9 mmol/L Normal 3.5-5.1 [facility] Comment on above: Performed By: #### H S TROP, CMP, LIPASE, CBC ####[address] Protein Auto test strip (U) [Mass/Vol]Ordered By: Joana Luevano on 02-21-2023 Protein (U) [Mass/Vol] Negative Negative [facility] Protein [Mass/volume] in Ser um or PlasmaOrdered By: Joana Luevano on 02-21-2023 Protein [Mass/Vol] 7.2 g/dL Normal 6.4-8.9 [facility] Comment on above: Performed By: #### H S TROP, CMP, LIPASE, CBC ####[address] Serum globulin measurement b y calculation (mass/volume)Ordered By: Joana Luevano on 02-21-2023 Globulin (S) [Mass/Vol] 2.9 g/dL Normal [facility] Comment on above: Performed By: #### H S TROP, CMP, LIPASE, CBC ####[address] Serum or plasma albumin/glob ulin mass ratioOrdered By: Joana Luevano on 02-21-2023 Albumin/Globulin [Mass ratio] 1.5 {ratio} Normal [facility] Comment on above: Performed By: #### H S TROP, CMP, LIPASE, CBC ####[address] Serum or plasma anion gap de terminationOrdered By: Joana Luevano on 02-21-2023 Anion gap [Moles/Vol] 10.0 mmol/L Normal 6.0-15.0 [facility] Comment on above: Performed By: #### H S TROP, CMP, LIPASE, CBC ####[address] [place] [address] [place] Sodium [Moles/volume] in Ser um or PlasmaOrdered By: Joana Luevano on 02-21-2023 Sodium [Moles/Vol] 137 mmol/L Normal 136-145 [facility] Comment on above: Performed By: #### H S TROP, CMP, LIPASE, CBC ####[address] Specific gravity Auto test s trip (U) [Rel density]Ordered By: Joana Luevano on 02-21-2023 Specific gravity (U) [Rel density] 1.014 1.001-1.030 [facility] Troponin I High Sensitivityo n 02-21-2023 Troponin I High Sensitivity 3.3 pg/mL Normal 0.0-20.0 [facility] Comment on above: Result Comment: PERF ORMED BY: [facility] [address] [place] [address] PATHOLOGIST SPORTS INFORMATION DIRECTOR EMRE FIELD M.D. Performed By: #### H S TROP, CMP, LIPASE, CBC ####[address] Troponin I.cardiac [Mass/vol ume] in Serum or Plasma by Detection limit <= 0.01 ng/Ordered By: Joana Luevano on 02-21-2023 Troponin I.cardiac DL <= 0.01 ng/mL [Mass/Vol] 3.3 pg/mL 0.0-20.0 [facility] Urea nitrogen [Mass/volume] in Serum or PlasmaOrdered By: Joana Luevano on 02-21-2023 Urea nitrogen [Mass/Vol] 14 mg/dL Normal 7-25 [facility] Comment on above: Performed By: #### H S TROP, CMP, LIPASE, CBC ####[address] Urinalysison 02-21-2023 Appearance (U) Clear Normal Clear [facility] Comment on above: Order Comment: Name Collection Type:: Clean-Voided Midstream Performed By: #### U A #### [address] Bilirubin,Urine Negative Normal Negative [facility] Comment on above: Order Comment: Name Collection Type:: Clean-Voided Midstream Performed By: #### U A #### [address] Glucose Ql (U) Normal Normal Normal [facility] Comment on above: Order Comment: Name Collection Type:: Clean-Voided Midstream Performed By: #### U A #### [address] Ketones Ql (U) Negative Normal Negative [facility] Comment on above: Order Comment: Name Collection Type:: Clean-Voided Midstream Performed By: #### U A #### [address] Leukocyte esterase Test strip Ql (U) Negative Normal Negative [facility] Comment on above: Order Comment: Name Collection Type:: Clean-Voided Midstream Performed By: #### U A #### [place] [address] [place] Nitrite,Urine Negative Normal Negative [facility] Comment on above: Order Comment: Name Collection Type:: Clean-Voided Midstream Performed By: #### U A #### [address] Occult Blood,Urine Negative Normal Negative [facility] Comment on above: Order Comment: Name Collection Type:: Clean-Voided Midstream Result Comment: PERF ORMED BY: [place] [address] PATHOLOGIST SPORTS INFORMATION DIRECTOR EMRE FIELD M.D. Performed By: #### U A #### [place] [address] [place] Protein,Urine Negative Normal Negative [facility] Comment on above: Order Comment: Name Collection Type:: Clean-Voided Midstream Performed By: #### U A #### [place] [address] [place] Specificy [place],Urine 1.014 Normal 1.001-1.030 [facility] Comment on above: Order Comment: Name Collection Type:: Clean-Voided Midstream Performed By: #### U A #### [facility] [address] [place] [id number] [place] Urobilinogen,Urine Normal Normal Normal [facility] Comment on above: Order Comment: Name Collection Type:: Clean-Voided Midstream Performed By: #### U A #### [facility] [address] [place] [id number] [place] Urine clarity by refractomet ry automatedOrdered By: Joana Luevano on 02-21-2023 Clarity Refractometry automated (U) Clear Clear [facility] Urine glucose measurement by automated test strip (mass/volume)Ordered By: Joana Luevano on 02-21-2023 Glucose Auto test strip (U) [Mass/Vol] Normal mg/dL Normal [facility] Urine hemoglobin detection b y automated test stripOrdered By: Joana Luevano on 02-21-2023 Hemoglobin Auto test strip Ql (U) Negative Negative [facility] Urine leukocyte esterase det ection by automated test stripOrdered By: Joana Luevano on 02-21-2023 Leukocyte esterase Auto test strip Ql (U) Negative Negative [facility] Urine pH measurement by auto mated test stripOrdered By: Joana Luevano on 02-21-2023 pH (U) 6.5 [pH] Normal 5.0-9.0 [facility] Comment on above: Order Comment: Name Collection Type:: Clean-Voided Midstream Performed By: #### U A #### [facility] [address] [place] [id number] [place] Urobilinogen Auto test strip (U) [Mass/Vol]Ordered By: Joana Luevano on 02-21-2023 Urobilinogen (U) [Mass/Vol] Normal mg/dL Normal [facility] CNPNon 12-07-2022 CNPN Telephone (HVICTR) PERI YOU ([id number]) 1975 M Date Time Provider Department 12/07/22 KIRSTIE SHETTY HVICTR During your visit today, we recorded the following information about you: Asia Kamara RN 12/07/2022 2:25 PM [facility] Center Inbound Phone Encounter DATE of SERVICE: 12/07/2022 TIME of SERVICE: 2:23 PM Status: FYI Service/Provider: Thoracic Surgery Kirstie Shetty M.D. Reason for call: Care Coordination and FYI Contact information: [phone] Resolution: Reinforced education Comments: Pt calling [facility] line. New Physician with [facility] requesting medical information. 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] Prescriptions as of 12/07/2022 [...] Status:Closed by ASIA KAMARA on 12/07/22 Normal [facility] Alanine aminotransferase [En zymatic activity/volume] in Serum or PlasmaOrdered By: Anurag Butler on 11-07-2022 ALT [Catalytic activity/Vol] 14 U/L 7-52 [facility] Albumin [Mass/volume] in Ser um or Plasma by Bromocresol green (BCG) dye binding methoOrdered By: Anurag Butler on 11-07-2022 Albumin BCG dye [Mass/Vol] 4.4 g/dL 3.5-5.7 [facility] Alkaline phosphatase [Enzyma tic activity/volume] in Serum or PlasmaOrdered By: Anurag Butler on 11-07-2022 ALP [Catalytic activity/Vol] 70 U/L 34-104 [facility] Aspartate aminotransferase [ Enzymatic activity/volume] in Serum or PlasmaOrdered By: Anurag Butler on 11-07-2022 AST [Catalytic activity/Vol] 19 U/L 13-39 [facility] Basophils Auto (Bld) [#/Vol] Ordered By: Anurag Butler on 11-07-2022 Basophils (Bld) [#/Vol] 0.0 10*3/uL 0.0-0.2 [facility] Basophils/100 WBC Auto (Bld) Ordered By: Anurag Butler on 11-07-2022 Basophils/100 WBC (Bld) 0.4 % . [facility] [place] Bilirubin.total [Mass/volume ] in Serum or PlasmaOrdered By: Anurag Butler on 11-07-2022 Bilirubin [Mass/Vol] 0.4 mg/dL 0.3-1.0 [facility] Calcium [Mass/volume] in Ser um or PlasmaOrdered By: Anurag Butler on 11-07-2022 Calcium [Mass/Vol] 9.2 mg/dL 8.6-10.3 [facility] Carbon dioxide, total [Moles /volume] in Serum or PlasmaOrdered By: Anurag Butler on 11-07-2022 CO2 [Moles/Vol] 26.2 mmol/L 21.0-31.0 [facility] Chloride [Moles/volume] in S federico or PlasmaOrdered By: Anurag Butler on 11-07-2022 Chloride [Moles/Vol] 105 mmol/L 98-107 [facility] Cholesterol [Mass/volume] in Serum or PlasmaOrdered By: Anurag Butler on 11-07-2022 Cholesterol [Mass/Vol] 136 mg/dL 140-200 [facility] Comment on above: Chol less than 200 m g/dl low riskChol 201-239 mg/dl borderline riskChol 240 mg/dl and greater high risk Cholesterol in LDL Calc [Mas s/Vol]Ordered By: Anurag Butler on 11-07-2022 Cholesterol in LDL [Mass/Vol] 72 mg/dL 0-100 [facility] Comment on above: LDL ATP III CLASSIFI CATIONLDL less than 100 mg/dL OptimalLDL 100-129 mg/dL Near or above optimalLDL 130-159 mg/dL Borderline highLDL 160-189 mg/dL HighLDL greater than 189 mg/dL Very high Cholesterol in VLDL Calc [Ma ss/Vol]Ordered By: Anurag Butler on 11-07-2022 Cholesterol in VLDL [Mass/Vol] 17 mg/dL [facility] Creatinine [Mass/volume] in Serum or PlasmaOrdered By: Anurag Butler on 11-07-2022 Creatinine [Mass/Vol] 0.96 mg/dL 0.70-1.30 [facility] Eosinophils Auto (Bld) [#/Vo l]Ordered By: Anurag Butler on 11-07-2022 Eosinophils (Bld) [#/Vol] 0.0 10*3/uL 0.0-0.45 [facility] Eosinophils/100 WBC Auto (Bl d)Ordered By: Anurag Butler on 11-07-2022 Eosinophils/100 WBC (Bld) 0.6 % . [facility] Erythrocyte distribution wid th Auto (RBC) [Ratio]Ordered By: Anurag Butler on 11-07-2022 Erythrocyte distribution width (RBC) [Ratio] 14.9 % 12.0-14.8 [facility] Folate [Mass/volume] in Seru m or PlasmaOrdered By: Anurag Butler on 11-07-2022 Folate [Mass/Vol] 12.1 ng/mL >5.9 [facility] Comment on above: Folate reference ran ge: >5.9 ng/mlThe WHO technical consultation on folate and vitamin [id number] has determined that folate concentrations lessthan 4 ng/ml are considered deficient. Globulin Calc (S) [Mass/Vol] Ordered By: Anurag Butler on 11-07-2022 Globulin (S) [Mass/Vol] 2.6 g/dL [facility] Glucose [Mass/volume] in Ser um or PlasmaOrdered By: Anurag Butler on 11-07-2022 Glucose [Mass/Vol] 69 mg/dL 70-100 [facility] Comment on above: ADA recommended refe rence rangeRandom Glucose Reference Range is dependent on time and content of last meal. Glucose of more than 200 mg/dL in a nonstressed, ambulatory subject supports the diagnosis of Diabetes Mellitus. Hematocrit Auto (Bld) [Volum e fraction]Ordered By: Anurag Butler on 11-07-2022 Hematocrit (Bld) [Volume fraction] 38.5 % 38.8-50.0 [facility] Hemoglobin [Mass/volume] in BloodOrdered By: Anurag Butler on 11-07-2022 Hemoglobin (Bld) [Mass/Vol] 12.9 g/dL 13.0-17.0 [facility] Leukocytes [#/volume] correc manolo for nucleated erythrocytes in Blood by Automated counOrdered By: Anurag Butler on 11-07-2022 WBC corrected for nucl RBC Auto (Bld) [#/Vol] 7.2 10*3/uL 4.1-10.5 [facility] Lymphocytes Auto (Bld) [#/Vo l]Ordered By: Anurag Butler on 11-07-2022 Lymphocytes (Bld) [#/Vol] 2.0 10*3/uL 1.00-4.8 [facility] Lymphocytes/100 WBC Auto (Bl d)Ordered By: Anurag Butler on 11-07-2022 Lymphocytes/100 WBC (Bld) 27.7 % . [facility] MCH Auto (RBC) [Entitic mass ]Ordered By: Anurag Butler on 11-07-2022 MCH (RBC) [Entitic mass] 28.1 pg 27.5-35.2 [facility] MCHC Auto (RBC) [Mass/Vol]Or dered By: Anurag Butler on 11-07-2022 MCHC (RBC) [Mass/Vol] 33.5 g/dL 32.5-35.6 [facility] MCV Auto (RBC) [Entitic vol] Ordered By: Anurag Butler on 11-07-2022 MCV (RBC) [Entitic vol] 83.8 fL 83.5-101 [facility] [place] Monocytes Auto (Bld) [#/Vol] Ordered By: Anurag Butler on 11-07-2022 Monocytes (Bld) [#/Vol] 0.4 10*3/uL 0.0-0.8 [facility] Monocytes/100 WBC Auto (Bld) Ordered By: Anurag Butler on 11-07-2022 Monocytes/100 WBC (Bld) 5.5 % . [facility] Neutrophils Auto (Bld) [#/Vo l]Ordered By: Anurag Butler on 11-07-2022 Neutrophils (Bld) [#/Vol] 4.7 10*3/uL 1.8-7.7 [facility] Neutrophils/100 WBC Auto (Bl d)Ordered By: Anurag Butler on 11-07-2022 Neutrophils/100 WBC (Bld) 65.8 % . [facility] No Panel InformationOrdered By: Anurag Butler on 11-07-2022 Estimated GFR (CKD-EPI) > 60.0 mL/Min [facility] Creatinine Clearance (Chem N/A [facility] Nucleated erythrocytes [Pres ence] in Blood by Automated countOrdered By: Anurag Butler on 11-07-2022 Nucleated RBC Auto Ql (Bld) 0.0 /100{WBC} 0-0.5 [facility] Platelet mean volume Auto (B ld) [Entitic vol]Ordered By: Anurag Butler on 11-07-2022 Platelet mean volume (Bld) [Entitic vol] 7.2 fL 6.6-10.1 [facility] Platelets Auto (Bld) [#/Vol] Ordered By: Anurag Butler on 11-07-2022 Platelets (Bld) [#/Vol] 238 10*3/uL 150-450 [facility] Potassium [Moles/volume] in Serum or PlasmaOrdered By: Anurag Butler on 11-07-2022 Potassium [Moles/Vol] 4.2 mmol/L 3.5-5.1 [facility] Protein [Mass/volume] in Ser um or PlasmaOrdered By: Anurag Butler on 11-07-2022 Protein [Mass/Vol] 7.0 g/dL 6.4-8.9 [facility] RBC Auto (Bld) [#/Vol]Ordere d By: Anurag Butler on 11-07-2022 RBC (Bld) [#/Vol] 4.60 10*6/uL 3.90-5.[address] [facility] Serum or plasma albumin/glob ulin mass ratioOrdered By: Anurag Butler on 11-07-2022 Albumin/Globulin [Mass ratio] 1.7 {ratio} [facility] Serum or plasma anion gap de terminationOrdered By: Anurag Butler on 11-07-2022 Anion gap [Moles/Vol] 12.0 mmol/L 6.0-15.0 [facility] Serum or plasma high density lipoprotein (HDL) cholesterol measurementOrdered By: Anurag Butler on 11-07-2022 Cholesterol in HDL [Mass/Vol] 47 mg/dL 23- [facility] Comment on above: HDL CHOL ATP-III CLA SSIFICATION Cardiovascular RiskHDL > or equal to 60 mg/dL LOWHDL < 40 mg/dL HIGH Serum or plasma total choles terol/high density lipoprotein (HDL) cholesterol mass ratOrdered By: Anurag Butler on 11-07-2022 Cholesterol.total/Choles terol in HDL [Mass ratio] 2.9 {ratio} <5.0 [facility] Sodium [Moles/volume] in Ser um or PlasmaOrdered By: Anurag Butler on 11-07-2022 Sodium [Moles/Vol] 139 mmol/L 136-145 [facility] Thyrotropin [Units/volume] i n Serum or PlasmaOrdered By: Anurag Butler on 11-07-2022 TSH Qn 0.49 m[IU]/L 0.45-5.33 [facility] Triglyceride [Mass/volume] i n Serum or PlasmaOrdered By: Anurag Butler on 11-07-2022 Triglyceride [Mass/Vol] 86 mg/dL 0-149 [facility] Comment on above: TRIG ATP III CLASSIF ICATIONTRIG less than 150 mg/dL NormalTRIG 150-199 mg/dL Borderline highTRIG 200-500 mg/dL High TRIG greater than 500 mg/dL Very highStandard traceable to the Center for Disease Conrtrol and Prevention (CDC) test method. Urea nitrogen [Mass/volume] in Serum or PlasmaOrdered By: Anurag Butler on 11-07-2022 Urea nitrogen [Mass/Vol] 9 mg/dL 7-25 [facility] Vitamin B12 ser/plasOrdered By: Anurag Butler on 11-07-2022 Cobalamin (Vitamin B12) [Mass/Vol] 1245 pg/mL 180-914 [facility] Vitamin D+Metabolites [Mass/ volume] in Serum or PlasmaOrdered By: Anurag Butler on 11-07-2022 Vitamin D+Metabolites [Mass/Vol] 39.2 ng/mL 30-100 [facility] Comment on above: VITAMIN D STATUS 25( [place])VITAMIN D RANGE (ng/mL) Deficient <20 Insufficient 20 to <30Sufficient 30 to 100Reference: Esther GARCIAS,Nga PORTER, Bora EGAN, et al. Evaluation,treatment, and prevention of vitamin D deficiency; an Endocrine Society clinical practice guideline. JCEM. 2010; 96(7):1911-30. WBC Auto (Bld) [#/Vol]Ordere d By: Nondenominationalbhakti Butler on 11-07-2022 WBC (Bld) [#/Vol] 7.2 10*3/uL 4.1-10.5 [facility] Vital Signs Date Time Vital Sign Value Performing Clinician Parul eason 01-13-2024 03:42-0400 Body height 180.34 cm Services [employer] Work Phone: [facility] 01-13-2024 03:42-0400 Body temperature 98.4 [degF] [facility] [employer] Work Phone: [facility] 01-13-2024 03:42-0400 Body weight 71.85 kg [facility] [employer] Work Phone: [facility] 01-13-2024 03:42-0400 Diastolic blood pressure 70 mm[Hg] [facility] [employer] Work Phone: [facility] 01-13-2024 03:42-0400 Heart rate 90 /min [facility] [employer] Work Phone: [facility] 01-13-2024 03:42-0400 Respiratory rate 18 /min [facility] [employer] Work Phone: [facility] 01-13-2024 03:42-0400 SaO2% (BldA) [Mass fraction] 99 % [facility] [employer] Work Phone: [facility] 01-13-2024 03:42-0400 Systolic blood pressure 126 mm[Hg] [facility] [employer] Work Phone: [facility] 06-14-2023 12:16-0500 Diastolic blood pressure 87 mm[Hg] [facility] Arizmendi [facility] 06-14-2023 12:16-0500 Heart rate 78 /min Thanh Arizmendi [facility] 06-14-2023 12:16-0500 Mean blood pressure 101 mm[Hg] Thanh Arizmendi [facility] 06-14-2023 12:16-0500 Respiratory rate 16 /min Thanh Arizmendi [facility] 06-14-2023 12:16-0500 Systolic blood pressure 129 mm[Hg] Thanh Arizmendi [facility] 04-02-2023 11:26-0500 Body height 180.34 cm [facility] Work Phone: [facility] 04-02-2023 11:26-0500 Body temperature 98.7 [degF] [facility] Work Phone: [facility] 04-02-2023 11:26-0500 Body weight 81.3 kg [facility] Work Phone: [facility] 04-02-2023 11:26-0500 Diastolic blood pressure 75 mm[Hg] [facility] Work Phone: [facility] 04-02-2023 11:26-0500 Heart rate 97 /min [facility] Work Phone: [facility] 04-02-2023 11:26-0500 Respiratory rate 18 /min [facility] Work Phone: [facility] 04-02-2023 11:26-0500 SaO2% (BldA) [Mass fraction] 99 % [facility] Work Phone: [facility] 04-02-2023 11:26-0500 Systolic blood pressure 127 mm[Hg] [facility] Work Phone: [facility] 03-20-2023 06:57-0500 Diastolic blood pressure 74 mm[Hg] [facility] Work Phone: [facility] 03-20-2023 06:57-0500 Heart rate 79 /min [facility] Work Phone: [facility] 03-20-2023 06:57-0500 Respiratory rate 18 /min [facility] Work Phone: [facility] 03-20-2023 06:57-0500 SaO2% (BldA) [Mass fraction] 99 % [facility] Work Phone: [facility] 03-20-2023 06:57-0500 Systolic blood pressure 124 mm[Hg] [facility] Work Phone: [facility] 03-20-2023 04:13-0500 Body height 180.34 cm [facility] Work Phone: [facility] 03-20-2023 04:13-0500 Body temperature 96.8 [degF] [facility] Work Phone: [facility] 03-20-2023 04:13-0500 Body weight 74 kg [facility] Work Phone: [facility] 02-24-2023 09:13-0400 Body height 176.53 cm [facility] Work Phone: [facility] 02-24-2023 09:13-0400 Body temperature 97.8 [degF] [facility] Work Phone: [facility] 02-24-2023 09:13-0400 Body weight 77 kg [facility] Work Phone: [facility] 02-24-2023 09:13-0400 Diastolic blood pressure 81 mm[Hg] [facility] Work Phone: [facility] 02-24-2023 09:13-0400 Heart rate 78 /min [facility] Work Phone: [facility] 02-24-2023 09:13-0400 Respiratory rate 18 /min [facility] Work Phone: [facility] 02-24-2023 09:13-0400 SaO2% (BldA) [Mass fraction] 100 % [facility] Work Phone: [facility] 02-24-2023 09:13-0400 Systolic blood pressure 137 mm[Hg] [facility] Work Phone: [facility] 02-21-2023 04:00-0400 Diastolic blood pressure 74 mm[Hg] [facility] Work Phone: [facility] 02-21-2023 04:00-0400 Heart rate 71 /min [facility] Work Phone: [facility] 02-21-2023 04:00-0400 Respiratory rate 14 /min [facility] Work Phone: [facility] 02-21-2023 04:00-0400 SaO2% (BldA) [Mass fraction] 99 % [facility] Work Phone: [facility] 02-21-2023 04:00-0400 Systolic blood pressure 121 mm[Hg] [facility] Work Phone: [facility] 02-21-2023 00:33-0400 Body height 180.34 cm [facility] Work Phone: [facility] 02-21-2023 00:33-0400 Body temperature 97.4 [degF] [facility] Work Phone: [facility] 02-21-2023 00:33-0400 Body weight 79.37 kg [facility] Work Phone: [facility] 05-17-2022 21:31-0500 Body height 180.34 cm [facility] Work Phone: [facility] 05-17-2022 21:31-0500 Body temperature 98.2 [degF] [facility] Work Phone: [facility] 05-17-2022 21:31-0500 Body weight 79 kg [facility] Work Phone: [facility] 05-17-2022 21:31-0500 Diastolic blood pressure 82 mm[Hg] [facility] Work Phone: [facility] 05-17-2022 21:31-0500 Heart rate 105 /min [facility] Work Phone: [facility] 05-17-2022 21:31-0500 Respiratory rate 18 /min [facility] Work Phone: [facility] 05-17-2022 21:31-0500 SaO2% (BldA) [Mass fraction] 100 % [facility] [employer] Work Phone: [facility] 05-17-2022 21:31-0500 Systolic blood pressure 139 mm[Hg] [facility] [employer] Work Phone: [facility] 04-16-2022 14:56-0500 Body height 179.07 cm [facility] [employer] Work Phone: [facility] 04-16-2022 14:56-0500 Body temperature 98.3 [degF] [facility] [employer] Work Phone: [facility] 04-16-2022 14:56-0500 Body weight 80.55 kg [facility] [employer] Work Phone: [facility] 04-16-2022 14:56-0500 Diastolic blood pressure 80 mm[Hg] [facility] [employer] Work Phone: [facility] 04-16-2022 14:56-0500 Heart rate 88 /min [facility] [employer] Work Phone: [facility] 04-16-2022 14:56-0500 Respiratory rate 22 /min [facility] [employer] Work Phone: [facility] 04-16-2022 14:56-0500 SaO2% (BldA) [Mass fraction] 100 % Services [employer] Work Phone: [facility] 04-16-2022 14:56-0500 Systolic blood pressure 141 mm[Hg] Services [employer] Work Phone: [facility] Encounters Encounter Date Encounter Type Care Provider Facility Start: 01-13-2024 End: 01-13-2024 Emergency department patient visit Services [facility] Work Phone: [facility] Work Phone: Start: 09-24-2023 Telephone encounter Mariana Arizmendi RN Gastroenterology Start: 09-06-2023 Telephone encounter Kirstie Shetty MD Work Phone: [facility] Comment on above: Received Outside Med ical Records Start: 07-25-2023 Telephone encounter Kirstie Shetty MD Work Phone: [facility] Comment on above: returned call Start: 06-14-2023 End: 06-15-2023 ambulatory CJ MAR Facility:[facility] [place] Start: 06-14-2023 End: 06-14-2023 Pain Management Thanh Arizmendi [facility] Start: 04-27-2023 End: 04-27-2023 Patient encounter procedure [facility] Work Phone: [facility] [place] Work Phone: Start: 04-27-2023 End: 04-27-2023 ambulatory [facility] Work Phone: [facility] Work Phone: Start: 04-02-2023 End: 04-02-2023 Emergency department patient visit [facility] Work Phone: [facility] Work Phone: Start: 03-20-2023 End: 03-20-2023 Emergency department patient visit [facility] Work Phone: [facility] Work Phone: Start: 02-24-2023 End: 02-24-2023 Emergency department patient visit [facility] Work Phone: [facility] Work Phone: Start: 02-21-2023 End: 02-21-2023 Emergency department patient visit [facility] Work Phone: [facility] Work Phone: Start: 12-07-2022 Telephone encounter Kirstie Shetty MD Work Phone: Cardiology Comment on above: [employer] Start: 11-07-2022 End: 11-07-2022 ambulatory [facility] Work Phone: [facility] Work Phone: Start: 11-07-2022 End: 11-07-2022 Patient encounter procedure Services [facility] Work Phone: [facility] [place] Work Phone: Start: 10-25-2022 End: 10-25-2022 ambulatory [facility] Work Phone: [facility] Work Phone: Start: 10-25-2022 End: 10-25-2022 Patient encounter procedure [facility] Work Phone: [facility] [place] Work Phone: Start: 05-17-2022 End: 05-17-2022 Emergency department patient visit Services [employer] [facility] Work Phone: [facility] Work Phone: Start: 04-16-2022 End: 04-16-2022 Emergency department patient visit Services [facility] Work Phone: [facility] Start: 10-11-2021 Telephone encounter Lucy allen RN Gastroenterology Comment on above: Appointment Start: 08-08-2021 End: 08-08-2021 ambulatory Kirstie Shetty MD Work Phone: Thoracic Surgery Comment on above: ACHALASIA (Primary D x) Start: 08-08-2021 End: 08-08-2021 Telemedicine consultation with patient Kirstie Shetty MD Work Phone: [facility] Start: 03-23-2020 End: 03-23-2020 Telephone encounter Mindy Corrigan Work Phone: [facility] Comment on above: Received Outside Med ical Records Procedures Date Procedure Procedure Detail Performing Clinician Start: 04-27-2023 US scan of thyroid Services [facility] Work Phone: Start: 03-20-2023 SARS-CoV-2, Influenza & RSV (PCR) Servic es [employer] Work Phone: Start: 03-20-2023 Plain chest X-ray Services [employer] Phone: Start: 02-21-2023 Computed tomography of abdomen and pelvis with contrast Services [employer] Phone: Start: 11-07-2022 Urine culture Services [employer] Phone: Start: 10-25-2022 X-ray of both knees [facility] Work Phone: Start: 10-25-2022 US, scrotum [facility] [employer] Work Phone: Start: 07-12-2021 Division of muscle Thanh Arizmendi Esophagogastroduodenoscopy Gwen Arizmendi Plan of Treatment Date Care Activity Detail Author Start: 04-02-2033 Urine microalbumin profile DTaP,Tdap,Td Vaccine (3 - Td or Tdap) [facility] Start: 08-09-2030 Urine microalbumin profile DTAP,TDAP,TD (2 - Td or Tdap) [facility] Start: 07-15-2024 DIABETES SCREEN DIABETES SCREEN [facility] Start: 07-15-2024 Diabetes Screening Diabetes Screening [facility] Start: 01-13-2024 Influenza vaccination Influenza Vaccine (Season Ended) [facility] Start: 10-01-2023 End: 10-01-2023 Patient encounter procedure Gastroenterology Comment on above: egd diagnostic Achalasia and cardio spasm [K22.0] Achalasia and cardio spasm Start: 05-14-2023 Behavioral Health Screening Behavioral Health Screening [facility] Start: 05-14-2023 Depression Assessment Depression Assessment [facility] Start: 03-20-2023 Plain chest X-ray XR chest 2V* [facility] Start: 03-20-2023 XR Chest 2 Views [facility] Start: 02-21-2023 Computed tomography of abdomen and pelvis with contrast CT abdomen pelvis w con [facility] Start: 02-21-2023 CT Abdomen and Pelvis W contrast IV [facility] Start: 01-12-2023 Covid-19 Vaccine ( season) Covid-19 Vaccine ( season) [facility] Start: 01-12-2023 Influenza vaccination [facility] Start: 05-14-2022 DEPRESSION ASSESSMENT DEPRESSION ASSESSMENT [facility] Start: 07-18-2021 COVID-19 VACCINE (4 - Moderna series) COVID-19 VACCINE (4 - Moderna series) [facility] Start: 12-29-2020 COLOGUARD (FIT-DNA) COLOGUARD (FIT-DNA) [facility] Start: 12-29-2020 Colonoscopy COLONOSCOPY [facility] Start: 12-29-2020 COLORECTAL CANCER SCREENING COLORECTAL CANCER SCREENING [facility] Start: 12-29-[address] COLONOGRAPHY [facility] Start: 12-29-2020 FECAL OCCULT BLOOD FECAL OCCULT BLOOD [facility] Start: 12-29-2020 Screening for malignant neoplasm of colon [facility] Start: 12-29-2020 SIGMOIDOSCOPY SIGMOIDOSCOPY [facility] Start: 01-13-2020 Influenza vaccination INFLUENZA (#1) [facility] Start: 12-29-2010 Lipid panel Lipid Screening [facility] Start: 12-29-2010 LIPID SCREEN LIPID SCREEN [facility] Start: 12-29-1994 Hepatitis B Vaccine (1 of 3 - 19+ 3-dose series) Hepatitis B Vaccine (1 of 3 - 19+ 3-dose series) [facility] Start: 12-29-1994 Urine microalbumin profile DTAP,TDAP,TD (1 - Tdap) [facility] Start: 12-29-1993 HEPATITIS C SCREENING HEPATITIS C SCREENING [facility] Start: 12-29-1993 Hepatitis C screening Hepatitis C Screening [facility] Start: 12-29-1993 HIV SCREENING HIV SCREENING [facility] Start: 12-29-1993 HIV screening HIV Screening [facility] Start: 1987 Adult depression screening assessment DEPRESSION SCREENING [facility] Start: 12-29-1981 PNEUMOCOCCAL (1 - PCV) [facility]AL [facility] Start: 12-29-1981 Pneumococcal vaccination Pneumococcal Vaccine (1 of 2 - PCV) [facility] Start: 1975 HEPATITIS B (1 of 3 - 3-dose series) HEPATITIS B (1 of 3 - 3-dose series) [facility] End: 08-08-2022 EGD - THERAPEUTIC, EUS, OR TUBE INTERVENTIONS EGD - THERAPEUTIC, EUS, OR TUBE INTERVENTIONS Endoscopy Routine ACHALASIA 1 Occurrences starting 08/08/2021 until 08/08/2022 [facility] Work Phone: Comment on above: 1 Occurrences starting 08/08/2021 until 08/08/2022 End: 07-24-2024 EGD DIAGNOSTIC EGD DIAGNOSTIC Endoscopy Routine Achalasia and cardiospasm 1 Occurrences starting 07/25/2023 until 07/24/2024 [facility] Work Phone: Comment on above: 1 Occurrences starting 07/25/2023 until 07/24/2024 Glucose measurement estimated from glycated hemoglobin [facility] Patient Education [facility] Work Phone: Patient referral [facility] Work Phone: End: 08-08-2022 PH VANN INSERT OFF MEDS PH VANN INSERT OFF MEDS Endoscopy Routine ACHALASIA 1 Occurrences starting 08/08/2021 until 08/08/2022 [facility] Work Phone: Comment on above: 1 Occurrences starting 08/08/2021 until 08/08/2022 End: 09-07-2022 Radiologic exam esophagus single contrast study XR ESOPHAGRAM Radiology Routine ACHALASIA 1 Occurrences starting 08/08/2021 until 09/07/2022 [facility] Work Phone: Comment on above: 1 Occurrences starting 08/08/2021 until 09/07/2022 Testosterone Free [Mass/volume] in Serum or Plasma [facility] Thiamine [Moles/volume] in Blood [facility] End: 08-23-2024 XR Esophagus Views W contrast PO XR ESOPHAGRAM Radiology Routine Achalasia and cardiospasm 1 Occurrences starting 07/25/2023 until 08/23/2024 [facility] Work Phone: Comment on above: 1 Occurrences starting 07/25/2023 until 08/23/2024 [facility] Immunizations Immunization Date Immunization Notes Care Provider Fa cility 04-02-2023 tetanus toxoid, redu tho diphtheria toxoid, and acellular pertussis vaccine, adsorbed Services [facility] Work Phone: [facility] 04-27-2021 adenovirus, type 4 a nd type 7, live, oral Kirstie Shetty MD Work Phone: [facility] 04-27-2021 influenza, injectabl e, quadrivalent, contains preservative Kirstie Shetty MD Work Phone: [facility] 04-27-2021 influenza virus vaccine, unspecified formulation Kirstie Shetty MD Work Phone: [facility] 09-28-2020 COVID-19 vaccine, fu ll dose (MODERNA) Kirstie Shetty MD Work Phone: [facility] 08-31-2020 COVID-19 vaccine, fu ll dose (MODERNA) Kirstie Shetty MD Work Phone: [facility] 08-09-2020 tetanus toxoid, redu tho diphtheria toxoid, and acellular pertussis vaccine, adsorbed Kirstie Shetty MD Work Phone: [facility] 04-29-2020 adenovirus, type 4 a nd type 7, live, oral Kirstie Shetty MD Work Phone: [facility] 03-25-2020 influenza, injectabl e, quadrivalent, contains preservative Kirstie Shetty MD Work Phone: [facility] Payers Date Payer Category Payer Medicaid 1948 [id number] 2023 Medicare [id number] 2023 Self-pay [id number] 2020 Medicaid [id number] 2020 [place] [id number] 2020-Present [phone] [address] [place] [address] Medicaid [id number] 2015 Medicare [id number] 2015 Medicare MEDICARE MEDICAR E A AND B [id number] 2015-Present [phone] [address] [address] [place] [address] Medicare [id number] 1975 Unknown [id number] Medicaid Medicaid Out of State [id number] Unknown [id number] Unknown [id number] Unknown [id number] Unknown [id number] Unknown [id number] Unknown [id number] Social History Date Type Detail Facility Tobacco smoking stat us [facility] Unknown if ever smoked [facility] Start: 1975 Sex Assigned At Not on file [facility] Start: 03-02-2021 End: 06-14-2023 Tobacco smoking status NHIS Light tobacco smoker [facility] Work Phone: End: 01-31-2021 History of tobacco use Cigarette Smoker [facility] Work Phone: Start: 03-02-2021 Tobacco use and exposure Smokeless tobacco non-user [facility] Work Phone: Start: 07-13-2021 Alcohol intake Ex-drinker (finding) [facility] Start: 03-02-2021 History SDOH Alcohol Comment previously was drinking >16 drinks in a week, quit ~3 weeks ago [facility] Start: 03-02-2021 Tobacco Comment infrequent one /day smoker [facility] Start: 06-13-2021 End: 07-13-2021 Exposure to SARS-CoV-2 (event) Not sure [facility] Start: 04-16-2022 End: 02-24-2023 Tobacco smoking status [facility] Current some day smoker [facility] Start: 1975 Sex Assigned At Male F [facility] Start: 05-17-2022 End: 03-20-2023 Tobacco smoking status NHIS Ex-smoker (finding) [facility] Start: 07-13-2021 End: 06-11-2022 Gender identity Not on file [facility] Start: 04-02-2023 End: 01-13-2024 Tobacco smoking status NHIS Smoker (finding) [facility] Start: 07-13-2021 End: 06-11-2022 History of Social function [facility] National Score (1-100), lower number is lower risk 87 [facility] Functional Status Date Assessment Result Facility 06-14-2023 Functional Status Telehealth [facility] Clinical Notes 02-22-2020 to 09-24-2023 Telephone Encounter - Mariana Arizmendi RN - 09/24/2023 4:23 PM EDTTelephone Encounter - Mariana Arizmendi RN - 09/24/2023 4:23 PM EDT Note Date & Type Note Facility 09-24-2023 Telephone encount er Note Attempted to reach the patient at the contact number that they provided [phone] (home) . Unable to speak with patient so without identifying the patient the following information was left on their voice mail: Date of procedure, location and report time Prep instructions A message was left informing the patient/patient field service representative they must have a responsible adult [...] Number to call with questions or concerns [phone] Number to call to cancel their procedure [phone] Mariana Arizmendi RN [facility] 09-24-2023 Miscellaneous Notes Formattin g of this note might be different from the original. Attempted to reach the patient at the contact number that they provided [phone] (home) . Unable to speak with patient so without identifying the patient the following information was left on their voice mail: Date of procedure, location and report time Prep instructions A message was left informing the patient/patient field service representative they must have a responsible adult [...] Number to call with questions or concerns [phone] Number to call to cancel their procedure [phone] Mariana Arizmendi RN documented in this encounter [facility] 09-06-2023 Telephone encount er Note Received outside notes from the office of Danis Amin MD. Scanned documents in [employer]. 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 [facility] Work Phone (unformatted): [phone] 09-06-2023 Miscellaneous Notes Formattin g of this note might be different from the original. Received outside notes from the office of Danis Amin MD. Scanned documents in [employer]. 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 documented in this encounter [facility] 07-25-2023 Miscellaneous Notes Formattin g of [...] insurance updated in system Need records from [facility] xrays done MayJun 2023 Instructed to call the physician that has been prescribing his oxy and other medications since we have not seen him in 2 years. ( states he needs referral for pain management) Plan for TBE , follow up with RECYCLING MANAGER EGD by gastro swallowing center. RECYCLING MANAGER follow up after testing completed Symone Gore RN, BSN, [facility] Thoracic Nurse Practice Mgr documented in this encounter [facility] 06-14-2023 Evaluation + Plan note Extrac [...] with any questions or concerns that arise. [facility]07-27-2023 Miscellaneous Notes* Telephone Encounter - Asia Kamara RN - 12/07/2022 2:21 PM [facility] Contact Center Inbound Phone Encounter DATE of SERVICE: 12/07/2022 TIME of SERVICE: 2:23 PM Status: FYI Service/Provider: Thoracic Surgery Kirstie Shetty M.D. Reason for call: Care Coordination and FYI Contact information: [phone] Resolution: Reinforced education Comments: Pt calling [facility] line. New Physician with [facility] requesting medical information. Pt was unsure on what records they needed. Previous MD retired. Provided FAX # of our Office and appt center # once pt was ready to make follow up. Encouraged to call us back with any further ques tions/assistance. Asia Kamara RN Date of Resolution: 12/07/2022 Time of Resolution 2:23 PM [facility] Miscellaneous Notes* Telephone Encounter - Lucy Nj RN - 10/11/2021 11:25 AM EDT Topic: Pre-Procedure Message Attempted to reach the patient at the contact number that they provided [phone] (home) . Unable to speak with patient so without identifying the patient the following information was left on their voice mail: Date of procedure, location and report time A message was left informing the patient/patient field service representative they must have a responsible adult [...] Number to call with questions or concerns [phone] Number to call to cancel their procedure [phone] [employer] messages sent, left message saying to review those. Lucy Nj RN [facility]22 NoteHNO ID: [id number] Author: Kirstie Shetty MD Service: ? Author [...] lymph nodes intact. [facility] performed at [facility], [address] [facility] [address] ? OLS July 14, 2021 3:43 PM [...] questions or concerns. Patient verbalized understanding of instructions.[facility]03-28-2022 NoteHNO ID: [id number] Author: Kirstie Shetty MD Service: ? Author [...] from TBE and Vann pH. [facility]irst[facility] Shetty [facility]2022 History of Present illness Narrative* Kirstie [...] lymph nodes intact. Gross examination performed at [facility], [address] [facility] [address] [facility] July 14, 2021 3:43 PM Today's Virtual [...] pH. Kirstie Shetty MD documented in [facility]10-[facility]-2020 Hospital Discharge instructions Additional Instructions All [...] you can follow-up with your primary care doctor.[facility] Work Phone: Evaluation note* Diagnosis ACHALASIA- Primary Achalasia and cardiospasm documented in this encounter [facility] noteNo assessment information availableOhiohealth Southeastern Medical Center Work Phone: Evaluation note* Diagnosis Achalasia and cardiospasm- Primary [facility] N[facility] No data available for this section [facility] Dis[facility] instructions Additional Instructions Take the amoxicillin twice a day for 10 days Do not insert anything into your ears May take all of ibuprofen or Tylenol for discomfort Recheck with your family doctorOhio[facility] Work Phone: Hospital Discharge instructions No data available for this section [facility] Additional Instructions You did strain both groin muscles as you thought. Use some ice for 15 to 20 minutes at a time. I will prescribe some medicine for pain. Follow-up with your doctor. We are happy to see you if there are any significant problems or concerns.[facility] Work Phone: Progress note No data available for this section [facility] (narrative)* Outpatient Procedure (Routine) - Pending Review Specialty Diagnoses / Procedures Referred By Robbin t Referred To Contact [facility] Diagnoses Achalasia and cardiospasm Procedures EGD - THERAPEUTIC, EUS, OR TUBE INTERVENTIONS ESOPHAGOGASTRODUODENOSC OPY [place] [address] [place], [place] [id number] [facility] [place] [address] Referral ID Status Reason Start Date Expiration Date Visits Requested Visits Authorized [id number] Pending Review Auto-Generat ed Referral 08/08/2021 08/08/2022 1 1 * Outpatient Procedure (Routine) - Pending Review Specialty Diagnoses / Procedures Referred By Contac t Referred To Contact [facility] Diagnoses Achalasia and cardiospasm Procedures PH VANN INSERT OFF MEDS GASTROESOPHAG REFLX TEST W/TELE[place] [address] [place] [address] [facility] [address] [address] Referral ID Status Reason Start Date Expiration Date Visits Requested Visits Authorized [id number] Pending Review Auto-Generat ed Referral 08/08/2021 08/08/2022 1 1 * Diagnostic Procedure Only (Routine) - Pending Review Specialty Diagnoses / Procedures Referred By Contac t Referred To Contact XR IMAGING Diagnoses Achalasia and cardiospasm Procedures XR ESOPHAGRAM RADIOLOGIC EXAM ESOPHAGUS [place]LE [place] [address] [place] [id number] [facility] Referral ID Status Reason Start Date Expiration Date Visits Requested Visits Authorized [id number] Pending Review Auto-Generat ed Referral 08/08/2021 09/07/2022 1 1 [facility] Outpatient Procedure (Routine) - Pending Review Specialty Diagnoses / Procedures Referred By Contac t Referred To Contact [facility] Diagnoses Achalasia and cardiospasm Procedures EGD DIAGNOSTIC ESOPHAGOGASTRODUODENOSC OPY TRANSORAL DIAGNOSTIC Kirstie Shetty MD [address] [place] [address] [facility] [place] [address] [place] [address] Referral ID Status Reason Start Date Expiration Date Visits Requested Visits Authorized [id number] Pending Review Auto-Generat ed Referral 07/25/2023 07/24/2024 1 1 * Diagnostic Procedure Only (Routine) - Pending Review Specialty Diagnoses / Procedures Referred By Contac t Referred To Contact XR IMAGING Diagnoses Achalasia and cardiospasm Procedures XR ESOPHAGRAM RADIOLOGIC EXAM ESOPHAGUS SINGLE CONTRAST STUDY Kirstie Shetty MD [address] [place] [address] [place] [address] Referral ID Status Reason Start Date Expiration Date Visits Requested Visits Authorized [id number] Pending Review Auto-Generat ed Referral 07/25/2023 08/23/2024 1 1 [facility] Summary Purpose Family History No Family [...] or prosecute any alcohol or drug abuse patient.[facility] HospitalIn the event this information is protected by the Federal Confidentiality of Alcohol and Drug Abuse Patient Records regulations: The Federal rules restrict any use of the information to criminally investigate or prosecute any alcohol or drug abuse patient.[facility] HospitalIn the event this information is protected by the Federal Confidentiality of Alcohol and Drug Abuse Patient Records regulations: The Federal rules restrict any use of the information to criminally investigate or prosecute any alcohol or drug abuse patient.[facility] HospitalIn the event this information is protected by the Federal Confidentiality of Alcohol and Drug Abuse Patient Records regulations: The Federal rules restrict any use of the information to criminally investigate or prosecute any alcohol or drug abuse patient.[facility] HospitalIn the event this information is protected by the Federal Confidentiality of Alcohol and Drug Abuse Patient Records regulations: The Federal rules restrict any use of the information to criminally investigate or prosecute any alcohol or drug abuse patient.[facility] HospitalIn the event this information is protected by the Federal Confidentiality of Alcohol and Drug Abuse Patient Records regulations: The Federal rules restrict any use of the information to criminally investigate or prosecute any alcohol or drug abuse [facility] Hospital[facility] the event this information is protected by the Federal Confidentiality of Alcohol and Drug Abuse Patient Records regulations: The Federal rules restrict any use of the information to criminally investigate or prosecute any alcohol or drug abuse patient.[facility] Reason for Visit (unrecogniz ed section and content) Reason Comments Received Outside Medical Records Reason Comments Difficulty Swallowing Reason Comments Appointment Reason Comments Grit Blaster - Other Reason Comments returned call Telephone Encounter - Moira Mercer - 03/23/2020 3:50 PM EST Miscellaneous Notes (unrecog nized section and content) Records received and placed in Dr. Corrigan's folder for FUELER abstract documented in this encounter Care Teams (unrecognized sec tion and content) Pc Network Technician Relationship Specialty Start Date End Date Mindy Corrigan MD [address] [place] [address] Referring Gastroenterology 04/21/21 Pc Network Technician Relationship Specialty Start Date End Date Mindy Corrigan MD [address] [place] [address] Referring Gastroenterology 04/21/21 Team Status: Inactive Member Role Status [facility] Primary Care Provider Active Gretta Galvan [facility] Emergency Provider Active Team Status: Active Member Role Status [facility] Primary Care Provider Active Team Status: Inactive Member Role Status [facility] Primary Care Provider Active Cliff Chapman DO Emergency Provider Active Team Status: Inactive Member Role Status [facility] Primary Care Provider Active Jeevan Freire DO Attending Provider Active Anurag Butler DO RES Other Provider Active Team Status: Inactive Member Role Status [facility] Primary Care Provider Active Sammi Contreras MD Attending Provider Active Anurag Butler DO RES Other Provider Active Pc Network Technician Relationship Specialty Start Date End Date Mindy Corrigan MD [address] [place] [address] Referring Gastroenterology 04/21/21 Team Status: Inactive Member Role Status [facility] Primary Care Provider Active Joana Luevano Jr, MD Emergency Provider Active Team Status: Inactive Member Role Status [facility] Primary Care Provider Active Bang Ku APRN Emergency Provider Active Team Status: Inactive Member Role Status [facility] Primary Care Provider Active Jeevan Freire DO Attending Provider Active Brayan Rolle DO RES Referring Provider Active Pc Network Technician Relationship Specialty Start Date End Date Mindy Corrigan MD [address] [place] [address] Referring Gastroenterology 04/21/21 Pc Network Technician Relationship Specialty Start Date End Date Mindy Corrigan MD [address] [place] [address] Referring Gastroenterology 04/21/21 Danis Amin MD [address] [facility] [address] [place] [address] Gastroenterology 08/27/23 Pc Network Technician Relationship Specialty Start Date End Date Mindy Corrigan MD [address] [place] [address] Referring Gastroenterology 04/21/21 Danis Amin MD [address] [facility] [address] [place] [address] Gastroenterology 08/27/23 Team Status: Inactive Member Role Status D[facility] Services [facility] Primary Care Provider Active Start: January 13, [...] CREATED AUTHOR AUTHOR'S ORGANIZ ATION 06/15/2023 [facility] DATE CREATED AUTHOR AUTHOR'S ORGANIZ ATION 09/26/2023 [facility] DATE CREATED AUTHOR AUTHOR'S ORGANIZ ATION [...] BE BASED ON THE PRIMARY CLINICAL RECORDS. [facility] [employer] [facility]. provides no warranty or guarantee of the accuracy or completeness of information in this document.
[2024-08-02 16:29] VITALS: O2SAT 100
[2024-08-02 17:02] LABS: Internal Control Within Normal Limits; Strep A Antigen Screen Negative
[2024-08-02] MEDS: DEXAMETHASONE SOD PHOS 10 MG/ML VIAL PO (17:08)
--- NOTE | 2024-08-02 17:33 | ED_ITS ---
HPI HPI - General Adult General Chief complaint: Upper Respiratory Infection Stated complaint: BODY ACHES Time Seen by Provider: 08/02/24 16:27 Source: patient Mode of arrival: walk-in History of Present Illness HPI narrative: 48-year-old male presents here with a chief complaint of sore throat. 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 He is tolerating secretions well. He states at times he has inflammation and pain. He has had no nausea or vomiting here. He is tolerating secretions well. He states he has not followed up or seen a doctor in quite some time. He is afe brile nontoxic-appearing. Posterior oropharynx is patent. No signs of distress and oxygenation is 100% on room air. Related Data Home Medications ?Medication ?Instructions ?Recorded ?Confirmed gabapentin 300 mg capsule 300 mg PO TID 01/20/24 08/02/24 Previous Rx's ?Medication ?Instructions ?Recorded omeprazole 20 mg delayed 20 mg PO DAILY #30 tabs 08/02/24 release,disintegrating tablet Allergies Allergy/AdvReac Type Severity Reaction Status Date / Time Latex, Natural Rubber Allergy Severe Rash Verified 01/24/24 12:36 acetaminophen AdvReac Mild Nausea Verified 01/24/24 12:36 methylprednisolone AdvReac Mild Vomiting Verified 01/24/24 12:36 Opioid HPI Opioid Management Most Recent Opioid Data: Last Pain Scale 6 01/20/24 16:31 01/20/24 Review of Systems ROS Status of ROS 10 or more systems reviewed and unremark able except as noted in history and below PFSH PFSH Social History Little interest or pleasure in doing things: not at all Feeling down, depressed, or hopeless: not at all Exam Narrative Exam Narrative: All Systems are negative except as noted/marked.All systems reviewed and otherwise negative Nurses note and vital signs reviewed and patient is not hypoxic. General: The patient appears well and in no apparent distress. Patient is resting comfortably on cart. Skin: Warm, dry, no pallor noted. There is no rash noted. Head: Normocephalic, atraumatic supple, no stridorous respirations Eye: Normal conjunctiva, no drainage, EOMI. PERRL Ears, Nose, Mouth, and Throat: Patent, no stridorous respirations, tolerating secretions well, oral mucosa is moist. Nares patent. Mouth without vesicles. Ear canals patent. Tm's without Erythema Cardiovascular: Regular Rate and Rhythm Respiratory: Patient is in no distress, no accessory muscle use, lungs are clear to auscultation, no wheezing, rales or rhonchi Back: non-tender, no CVA tenderness bilaterally to percussion. Musculoskeletal: The patient has no evidence of calf tenderness, no pitting edema, symmetrical pulses noted bilaterally Neurological: A&O x4, normal speech Psychiatric: Cooperative Constitutional Vital Signs, click to edit/add: Last Vital Signs Temp 98 F 08/02/24 16:22 Pulse 98 H 08/02/24 16:22 Resp 20 08/02/24 16:22 BP 138/88 08/02/24 16:22 Pulse Ox 100 08/02/24 16:29 O2 Del Method Room Air 08/02/24 16:29 Course Vital Signs Vital signs: Vital Signs Temperature 98 F 08/02/24 16:22 Pulse Rate 98 H 08/02/24 16:22 Respiratory Rate 20 08/02/24 16:22 Blood Pressure 138/88 08/02/24 16:22 Pulse Oximetry 100 08/02/24 16:22 Oxygen Delivery Method Room Air 08/02/24 16:22 Temperature 98 F 08/02/24 16:22 Pulse Rate 98 H 08/02/24 16:22 Respiratory Rate 20 08/02/24 16:22 Blood Pressure 138/88 08/02/24 16:22 Pulse Oximetry 100 08/02/24 16:29 Oxygen Delivery Method Room Air 08/02/24 16:29 Medical Decision Making Differential Diagnosis Differential Diagnosis: pharyngitis, uri dysphagia Medical Records Medical records reviewed: Yes I reviewed the patient's medical records Medical records narrative: 48-year-old male presents here with a chief complaint of sore throat. 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 He is tolerating secretions well. He states at times he has inflammation and pain. He has had no nausea or vomiting here. He is tolerating secretions well. He st ates he has not followed up or seen a doctor in quite some time. He is afebrile nontoxic-appearing. Posterior oropharynx is patent. No signs of distress and oxygenation is 100% on room air. Patient was medicated here with Decadron. He was also given a refill prescription of omeprazole. He states he needs liquid form I did give him a dissolvable tablet. Patient encouraged to follow-up with primary care physician he states he does not have 1. Patient given a list of new doctors to follow. He shows no signs of acute distress distress respirations tolerate secretions well. Patient will be discharged home diagnosis pharyngitis. Vital signs are stable he is currently afebrile. Lab Data Lab results reviewed: Yes I reviewed the patient's lab results Labs: Lab Results 08/02/24 Range/Units 16:42 Streptococcus Screen Negative Discharge Plan Discharge Chief Complaint: Upper Respiratory Infection Clinical Impression: Pharyngitis Patient Disposition: Home, Self-Care Time of Disposition Decision: 17:33 Condition: Good Prescriptions / Home Meds: New omeprazole 20 mg tablet,disintegrat, delay rel 20 mg PO DAILY Qty: 30 1RF No Action gabapentin 300 mg capsule 300 mg PO TID Print Language: Mohawk Instructions: Pharyngitis (ED) Referrals: Physician,Non-Staff, MD [Primary Care Provider] - 1 week
== END 2024-08-02 17:44 | disposition home or self-care (01) ==
PROVIDERS: Physician Assistant; Emergency Provider Emergency Medicine
DX: J02.9 Acute pharyngitis, unspecified (principal)
CPT/HCPCS: 87070; 87804; 87811; 87880; 99283; J1100

== ENCOUNTER 2024-08-04 14:32 | Emergency (ER) | payer MEDICARE, MEDICAID, SELFPAY ==
[2024-08-04 14:48] VITALS: BP 154/96; PULSE 95; TEMP 37.2; O2SAT 99; BMI 25.1
--- NOTE | 2024-08-04 15:27 | ED_ITS ---
HPI HPI - General Adult General Chief complaint: Weakness Stated complaint: GENITAL NERVE FLARE UP Time Seen by Provider: 08/04/24 14:52 Source: patient Mode of arrival: walk-in Limitations: no limitations History of Present Illness HPI narrative: 48-year-old male to the emergency department with 2 chief complaints. The first of which he reports that he has a degenerative nerve disease which causes him to have diffuse body pain that flares up. He would like some pain medication for this and a steroid. Patient also reports that he sleeps with a CPAP at night. He reports that his CPAP had a recall. He would like to be admitted to the hospital so he can use our CPAP tonight while he arranges to get his back. He denies any fever, sweats, chills, chest pain, shortness of breath, abdominal pain, nausea, vomiting, diarrhea. He is otherwise at his baseline health. He reports he typically goes to [facility] but is in town to help his father after a car accident. Related Data Home Medications ?Medication ?Instructions ?Recorded ?Confirmed gabapentin 300 mg capsule 300 mg PO TID 01/20/24 08/04/24 Previous Rx's ?Medication ?Instructions ?Recorded omeprazole 20 mg delayed 20 mg PO DAILY #30 tabs 08/02/24 release,disintegrating tablet Allergies Allergy/AdvReac Type Severity Reaction Status Date / Time Latex, Natural Rubber Allergy Severe Rash Verified 08/04/24 14:52 acetaminophen AdvReac Mild Nausea Verified 08/04/24 14:52 methylprednisolone AdvReac Mild Vomiting Verified 08/04/24 14:52 Opioid HPI Opioid Management Most Recent Opioid Data: Last Pain Scale 6 01/20/24 16:31 01/20/24 Review of Systems ROS Status of ROS 10 or more systems reviewed and unremark able except as noted in history and below PFSH PFSH Social History Little interest or pleasure in doing things: not at all Feeling down, depressed, or hopeless: not at all Exam Narrative Exam Narrative: VITALS: I have reviewed the triage vital signs. GENERAL: Adult male in no acute distress NEURO: Alert and oriented. Moves all extremities. Face is symmetric and expressive. EYES: PERRL. No scleral icterus or conjunctival injection. No discharge. HENT: Normocephalic, atraumatic. Hearing is grossly intact. Nares grossly patent and without discharge. Mucous membranes moist. Normal oropharyngeal exam. NECK: No JVD. Patient moves neck without restriction. CARDIO: Rhythm regular. Normal rate. No murmur, rub, or gallop. Pulses equal bilaterally in the upper and lower extremity. No lower extremity edema. PULM: Lungs clear to auscultation in all grier. No wheezes, rales, or rhonchi. No conversational dyspnea. No splinting, stridor, or accessory muscle use. GI/: Abdomen is soft and non-tender. Normoactive bowel sounds. EXTREMITIES: Symmetric muscle bulk. No joint swelling. No clubbing, cyanosis, or deformity. SKIN: Warm and dry. Normal turgor. No rash or lesions appreciated. PSYCH: Strange affect Constitutional Vital Signs, click to edit/add: Last Vital Signs Temp 98.9 F 08/04/24 14:48 Pulse 95 H 08/04/24 14:48 Resp 18 08/04/24 14:48 BP 154/96 H 08/04/24 14:48 Pulse Ox 99 08/04/24 14:48 O2 Del Method Room Air 08/04/24 14:48 Course Vital Signs Vital signs: Vital Signs Temperature 98.9 F 08/04/24 14:48 Pulse Rate 95 H 08/04/24 14:48 Respiratory Rate 18 08/04/24 14:48 Blood Pressure 154/96 H 08/04/24 14:48 Pulse Oximetry 99 08/04/24 14:48 Oxygen Delivery Method Room Air 08/04/24 14:48 Temperature 98.9 F 08/04/24 14:48 Pulse Rate 95 H 08/04/24 14:48 Respiratory Rate 18 08/04/24 14:48 Blood Pressure 154/96 H 08/04/24 14:48 Pulse Oximetry 99 08/04/24 14:48 Oxygen Delivery Method Room Air 08/04/24 14:48 Medical Decision Making MDM Narrative Medical decision making narrative: 48-year-old male to the emergency department with chief complaint of diffuse nerve pain as well as requesting admission for CPAP use. Vital stable, the patient is afebrile. He is in no distress. Patient is unable to give many details about this flareup of his diffuse chronic nerve pain. There are no specific areas that are aching other than his joints and everywhere else . I asked the patient what he usually does for this and that he is unable to provide details. I asked who provides care for this and he is unable to provide details. I offered him a dose of steroid and he agrees with this plan. I do not feel it is appropriate to use controlled substances in the treatment of this chronic pain. The patient reports that he has a CPAP machine at his residence in [place] but did not want to go out there to get it. 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 There is no indication for admission for this complaint at this time especially if he has a CPAP machine available to him in [place]. Patient agrees with this plan. All questions were answered. The patient was discharged home. Medical Records Medical records reviewed: Yes I reviewed the patient's medical records Discharge Plan Discharge Chief Complaint: Weakness Clinical Impression: Encounter for medical screening examination, Body aches Patient Disposition: Home, Self-Care Time of Disposition Decision: 15:17 Condition: Good Mode of Transportation: Private Vehicle Prescriptions / Home Meds: No Action gabapentin 300 mg capsule 300 mg PO TID omeprazole 20 mg tablet,disintegrat, delay rel 20 mg PO DAILY Qty: 30 1RF Print Language: Upper Sorbian Instructions: Musculoskeletal Pain (ED) Additional Instructions: Call the office of your primary care doctor to arrange for follow-up within the above-stated timeframe. Your ED visit was focused on your acute issue and does not replace primary care. You should review your labs, imaging, and diagnoses from this ED visit with your primary care physician. There may be non-emergent/ incidental findings that need further evaluation. You should review your vital signs including blood pressure with your PCP. If you were prescribed medications you should discuss possible side-effects and drug interactions with your pharmacist. Call 911 or go to the nearest Emergency Department if you develop any new or worsening symptoms. I recommend obtaining your back up breathing device from your primary residence. Referrals: Physician,Non-Staff, MD [Primary Care Provider] - 1 week
[2024-08-04] MEDS: ONDANSETRON 4 MG RAPDIS TABLET SL (15:47)
[2024-08-04] MEDS: DEXAMETHASONE SOD PHOS 10 MG/ML VIAL IM (15:50)
[2024-08-04 15:53] VITALS: PULSE 91; O2SAT 100
== END 2024-08-04 15:54 | disposition home or self-care (01) ==
PROVIDERS: Emergency Provider Student in an Organized Health Care Education/Training Program
DX: R52 Pain, unspecified (principal); M79.2 Neuralgia and neuritis, unspecified
CPT/HCPCS: 96372; 99284; J1100; Q0162